=== PATIENT | male | born 1960 | race African-American/Black ===

== ENCOUNTER → 2019-08-08 | Outpatient (CLI) | payer OTHER ==
--- NOTE | 2019-08-08 16:57 | XR ---
EXAMINATION TYPE: XR lumbosacral spine min 4V DATE OF EXAM: 08/08/2019 CLINICAL HISTORY: Chronic low back pain TECHNIQUE: Frontal, lateral, and oblique images of the lumbar spine are obtained. COMPARISON: None FINDINGS: There are 5 lumbar type vertebral bodies identified. The lumbar spine shows satisfactory alignment without evidence of acute fracture or dislocation. Minimal intervertebral disc space narrow ing at L5-S1. Vertebral body heights and remaining disk space heights are within normal limits. Mild facet arthropathy at L4-S1. The oblique images appear within normal limits. The overlying soft tiss ue appears unremarkable. IMPRESSION: No acute fracture or dislocation is seen in the lumbar spine. Mild multilevel degenerati ve disc disease of the lumbar spine.
== END | disposition home or self-care (01) ==
LOC: RADXRMAIN 16:04
PROVIDERS: ATTEND Family Medicine
DX: M51.36 Other intervertebral disc degeneration, lumbar region (principal)
CPT/HCPCS: 72110

== ENCOUNTER → 2019-12-20 | Outpatient (CLI) | payer OTHER ==
--- NOTE | 2019-12-20 13:49 | MR ---
EXAMINATION TYPE: MR brain wo/w con DATE OF EXAM: 12/20/2019 COMPARISON: NONE HISTORY: Transient vision loss, both eyes TECHNIQUE: Multiplanar, multisequence images of the brain and brainstem is performed without and with IV contras t, utilizing 7 mL intravenous Gadavist . FINDINGS: Diffusion weighted images demonstrate no evidence of a recent infarct or other diffusion ab normality. There is no extra-axial fluid collection. There are 4 foci of punctate T2/FLAIR hyperinte nsity in the left frontal lobe and 2 in the right frontal lobe in the subcortical white matter. The v entricular system and cisternal spaces are normal in size and appearance. The brain volume is age ap propriate. Midline structures demonstrate normal morphology. The craniocervical junction appears within normal limits. Post contrast images demonstrate no abnormal intra-axial enhancement. However, there is slig ht dural thickening particularly in the left frontal lobe on postcontrast axial T1 image 19. The dura l venous sinuses appear patent. The visualized sinuses demonstrate severe mucosal thickening of the l eft sphenoid sinus and mild of the right maxillary sinus with scant mucosal thickening in the ethmoid , right inferior frontal, and left maxillary sinus. Mastoid air cells are well aerated. IMPRESSION: 1. Mild circumferential dural thickening, particularly of the left frontal region. This is a nonspeci fic finding and differential diagnosis includes infectious etiologies, neurosarcoidosis, or metastasi s. No other MR evidence of intracranial hypotension or cerebral venous thrombosis. 2. Few foci of nonspecific white matter change in the bilateral frontal subcortical white matter. Giv en the distribution sequela of migraines or chronic microangiopathy are favored. 3. Overall moderate pansinusitis. 4. No acute infarct, midline shift or mass effect. 5. Orbits appear unremarkable on MRI. Ophthalmologic exam recommended.
--- NOTE | 2019-12-20 15:21 | US ---
EXAMINATION TYPE: US carotid duplex BILAT DATE OF EXAM: 12/20/2019 COMPARISON: NONE CLINICAL HISTORY: 59-year-old male H53.433 sector defects. Bilateral vision loss x 6 months, worse la st 2 months. TECHNIQUE: Carotid duplex ultrasound examination. Indirect Doppler criteria was utilized. 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 Wall thickening in left bulb. Als o, minimal plaque seen in posterior wall at distal CCA is adjacent to the bulb. IMPRESSION: No hemodynamically significant stenosis identified in either internal carotid artery. Criteria for Assigning % of Stenosis / Diameter reduction (Estimation based on the indirect measurements of the internal carotid artery velocities (ICA PSV). 1. Normal (no stenosis)=ICA PSV < 125 cm/s: ratio < 2.0: ICA EDV<40 cm/s. 2. Less than 50% stenosis=ICA PSV < 125 cm/s: ratio < 2.0: ICA EDV<40 cm/s. 3. 50 to 69% stenosis=ICA PSV of 125 to 230 cm/s: ration 2.0 ? 4.0: ICA EDV 40-100 cm/s. 4. Greater than 70% stenosis to near occlusion= ICA PSV > 230 cm/s: ratio > 4.0: ICA EDV > 100 cm/s. 5. Near occlusion= ICA PSV velocities may be low or undetectable: variable ratio and ICA EDV. 6. Total occlusion=unable to detect flow.
== END | disposition home or self-care (01) ==
LOC: RADMRIMAIN 12:26
PROVIDERS: ATTEND Ophthalmology
DX: G93.89 Other specified disorders of brain (principal); R90.82 White matter disease, unspecified; G43.909 Migraine, unspecified, not intractable, without status migrainosus; H53.123 Transient visual loss, bilateral
CPT/HCPCS: 93880; 70553; A9585

== ENCOUNTER → 2021-07-07 | Outpatient (CLI) | payer OTHER ==
--- NOTE | 2021-07-07 09:54 | XR ---
EXAMINATION TYPE: XR chest 2V DATE OF EXAM: 07/07/2021 COMPARISON: NONE HISTORY: Shortness of breath, abnormal weight loss TECHNIQUE: Frontal and lateral views of the chest are obtained. FINDINGS: There is no focal air space opacity, pleural effusion, or pneumothorax seen. The cardiac silhouette size is small. Apical scarring is noted on the right, there may be some small blebs. Hype rinflation is consistent with underlying COPD. The osseous structures are intact. IMPRESSION: No acute cardiopulmonary process. Correlate for possible underlying emphysema.
--- NOTE | 2021-07-07 10:59 | XR ---
Left shoulder HISTORY: Trauma 2 weeks prior, pain 3 views the left shoulder Distal left clavicular fracture is present, there is periosteal new bone formation. Slight superior d isplacement of distal clavicle is present in relation to the acromion. There are scattered lucencies present throughout the proximal diaphyseal left humerus. IMPRESSION: Distal clavicular fracture, probable acromioclavicular separation grade 2. Lytic lucencie s within the proximal left humerus, consider multiple myeloma, metastasis. Report relayed telephonica lly to Dr. Nagel at the time of interpretation.
== END | disposition home or self-care (01) ==
LOC: RADXRMAIN 09:18
PROVIDERS: ATTEND Nurse Practitioner Family
DX: S42.031D Displaced fracture of lateral end of right clavicle, subsequent encounter for fracture with routine healing (principal); R91.8 Other nonspecific abnormal finding of lung field
CPT/HCPCS: 71046

== ENCOUNTER → 2021-08-08 | Outpatient (CLI) | payer OTHER ==
--- NOTE | 2021-08-12 06:46 | PE ---
EXAMINATION TYPE: PET CT fusion whole body DATE OF EXAM: 08/08/2021 COMPARISON: NONE HISTORY: Multiple myeloma . Abnormal weight loss. TECHNIQUE: Following the intravenous administration of 9.48 mCi of F-18 FDG, whole body images are p erformed from the top of skull to the bottom of feet. Images are reviewed on the computer in the cor onal, axial, and sagittal planes. Reconstructed rotating images are created on independent workstati on and reviewed on the computer. A localization and attenuation correction CT is performed in conju nction with the PET scan. SCAN: Subsequent Scan FINDINGS: SKULL BASE AND NECK: Suspicious near 1.0 cm hypermetabolic focus left anterior mandibular level axia l image 69, max SUV is 4.45. No additional areas of abnormal hypermetabolic uptake. CHEST, MEDIASTINUM, AND HILAR REGION: No areas of abnormal hypermetabolic uptake. ABDOMEN AND PELVIS: Normal excretion. No areas of abnormal hypermetabolic uptake. OSSEOUS STRUCTURES: Mild uptake corresponds to distal left clavicular fracture suspected subacute in age. No additional areas of abnormal hypermetabolic uptake. No distinct suspicious hypermetabolic lyt ic osseous lesions. Lower extremities: No distinct hypermetabolic lytic osseous lesions or additional areas of suspicious hypermetabolic uptake. OTHER CT: Small foci of groundglass opacity in the right midlung near axial image 118 are noted. Patient has little intra-abdominal fat. Occasional scattered pelvic phleboliths. Facet arthropathy lo wer lumbar spine. Mild calcified plaque of the abdominal aorta extends into pelvic branch vessels. IMPRESSION: 1. No suspicious lytic hypermetabolic osseous lesions to suggest active myeloma deposits or hypermeta bolic soft tissue masses to suggest plasmacytoma except for single near 1.0 cm lesion left anterior m andibular level. Correlate clinically. 2. Small area of groundglass opacity right midlung could reflect developing acute infectious process, correlate clinically.
== END | disposition home or self-care (01) ==
LOC: RADPETMAIN 11:23
PROVIDERS: ATTEND Nurse Practitioner Family
DX: C90.00 Multiple myeloma not having achieved remission (principal); R91.8 Other nonspecific abnormal finding of lung field
CPT/HCPCS: 78816; A9552

== ENCOUNTER → 2021-11-20 | Outpatient (CLI) | payer OTHER ==
--- NOTE | 2021-11-20 12:18 | CT ---
EXAMINATION TYPE: CT chest w con DATE OF EXAM: 11/20/2021 COMPARISON: PET scan dated 08/08/2021 HISTORY: lung nodule CT DLP: 124.9 mGycm Automated exposure control for dose reduction was used. TECHNIQUE: CT scan of the chest is performed with IV Contrast, patient injected with 100 mL of Isovue 300. FINDINGS: The previously seen area of groundglass opacity at the anterior aspect of the right upper lobe is sma ller measuring 5 mm compared to 8mm previously. The adjacent more medial nodular infiltrates are stil l persistent as well as similar opacity at the posterior aspect of the right upper lobe inferiorly. T hey could represent decreasing inflammatory/infectious nodules however they are not completely resolv ed. COPD changes with scattered bilateral thin pulmonary atelectasis. Minimal fibrotic changes are seen in the lung apex with paraseptal emphysema in the right lung apex. The subtle fibrotic changes at the medial aspect of the left lung apex is stable. No progressive lung lesion. Patent central airways. No pleural or pericardial effusion. No cardiomegaly. Scattered arter ial atherosclerotic calcifications. The pulmonary trunk measures 2.6 cm. No progressive lymphadenopat hy. Suspected hepatic steatosis. No aggressive bone lesion. IMPRESSION: Slightly smaller previously described groundglass opacities in the right upper lobe as described abov e, yet not completely resolved. They are likely benign however considering no previous CT scan is poli ilable before the PET scan, another precautionary follow-up in 3-6 months is advised. Other incidenta l findings as described above.
== END | disposition home or self-care (01) ==
LOC: RADCTMAIN 08:34
PROVIDERS: ATTEND Internal Medicine Hematology & Oncology
DX: R91.8 Other nonspecific abnormal finding of lung field (principal)
CPT/HCPCS: 71260; Q9967

== ENCOUNTER → 2022-05-22 | Outpatient (CLI) | payer MEDICARE, OTHER ==
--- NOTE | 2022-05-22 08:31 | CT ---
EXAMINATION TYPE: CT chest wo con CT DLP: 188.6 mGycm, Automated exposure control for dose reduction was used. DATE OF EXAM: 05/22/2022 7:13 AM COMPARISON: CT chest 11/20/2021,PET CT 08/08/2021. CLINICAL INDICATION:Male, 61 years old with history of R91.1 Nodule, Weight loss and shortness of sandip ath TECHNIQUE: Multiple axial images were obtained through the chest. Sagittal and coronal reformats were created for review. Contrast used: , none Oral contrast used: none. FINDINGS: LUNGS/ PLEURA: No evidence of focal consolidation, pneumothorax or pleural effusion. Fat-containing p osterior Bochdalek hernias bilaterally. Moderate bulla noted in the right lung apex. No evidence for pulmonary mass. Stable scarring like changes in the lung apices bilaterally left greater than right. AIRWAY: Patent and unremarkable. HEART: Size within normal limits. MEDIASTINUM: No gross evidence of adenopathy. VASCULATURE: No aortic aneurysm. Atherosclerosis of the arterial vasculature. MUSCULOSKELETAL: No acute osseous abnormalities, mild multilevel disc degeneration changes noted SOFT TISSUES/LYMPH NODES: Unremarkable. LOWER NECK: No significant findings. UPPER ABDOMEN: No significant findings. IMPRESSION: 1. No evidence for mass or acute process. 2. Mild apical cyst emphysema/COPD changes
== END | disposition home or self-care (01) ==
LOC: RADCTMAIN 06:54
PROVIDERS: ATTEND Internal Medicine Hematology & Oncology
DX: J44.9 Chronic obstructive pulmonary disease, unspecified (principal); J98.4 Other disorders of lung
CPT/HCPCS: 71250

== ENCOUNTER 2022-06-24 16:00 | Inpatient (IN) | payer MEDICARE, OTHER ==
[2022-06-24] MEDS ORDERED: ASPIRIN 81 MG PO STA (16:27)
[2022-06-24] MEDS ORDERED: IPRATROPIUM-ALBUTEROL 3 ML NEB INHALATION STA (16:27)
[2022-06-24] MEDS ORDERED: methylPREDNISolone SOD SUCCI 125 MG/2 ML VIAL IV STA (16:27)
[2022-06-24] MEDS ORDERED: SODIUM CHLORIDE 0.9% 1,000 ML IV STA ×2 (16:27→18:38)
--- NOTE | 2022-06-24 17:06 | XR ---
EXAMINATION TYPE: XR chest 2V DATE OF EXAM: 06/24/2022 COMPARISON: 07/07/2021 HISTORY: Chest pain TECHNIQUE: 2 view FINDINGS: There is blunting left costophrenic angle. There is infiltrate left lung base. Right lung i s clear. No heart failure. Heart and mediastinum are normal. There are no hilar masses. Bony thorax i s intact IMPRESSION: There is left lower lobe pneumonia and left pleural effusion which is new compared to old exam.
--- NOTE | 2022-06-24 18:04 | ED ---
General Adult HPI - General Chief complaint: Weakness Stated complaint: SOB Time Seen by Provider: 06/24/22 16:11 Source: patient, EMS, RN notes reviewed, old records reviewed Mode of arrival: EMS Limitations: no limitations - History of Present Illness Initial comments: Patient is a 61-year-old male with past medical history remarkable for COPD, neuropathy, brain lesions currently being worked up, legally blind who presents emergency Department complaining of weakness, dyspnea. This is been ongoing for 1 week. Patient's had Covid last week. States he has been feeling weak with a productive cough and having increased shortness of breath. Hasn't been eating or drinking. Is uncertain if he is positive for Covid. States he has left lower anterior rib pain after he hurt himself by falling recently. However denies any other [place] chest pain. Denies abdominal pain, nausea, vomiting. Denies any lower extremity edema. Denies any history of blood clots. Is not on blood thinners. Denies fevers. Does not acute complaints at this time. Denies sore throat. Presents for further evaluation. Believes he was vaccinated for Covid.Patient's brain lesions are chronic and have been getting worked up for the last 2 years. This includes cancer screening which patient's family states has been negative. - Related Data Home Medications Medication Instructions Recorded Confirmed Albuterol Sulfate [Albuterol 2 puff PO RT-Q6H PRN 06/24/22 06/24/22 Sulfate Hfa] oxyCODONE-APAP 10-325MG [Percocet 1 tab PO TID PRN 06/24/22 06/24/22 10-325 mg] Allergies Allergy/AdvReac Type Severity Reaction Status Date / Time No Known Allergies Allergy Verified 06/24/22 18:09 Review of Systems ROS Statement: Those systems with pertinent positive or pertinent negative responses have been documented in the HPI. Review of Systems: CONST: Denies fever EYES: Denies blurry vision ENT: Endorses nasal congestion C/V: Denies Chest pain RESP: Endorses cough GI: Denies abdominal pain : Denies dysuria SKIN: Denies rash. MSK: Denies joint pain. NEURO: Denies headache ROS Other: All systems not noted in ROS Statement are negative. Past Medical History Past Medical History: COPD Additional Past Medical History / Comment(s): neuropathy, brain lesions, legally blind, carpal tunnel History of Any Multi-Drug Resistant Organisms: None Reported Past Surgical History: No Surgical Hx Reported Past Psychological History: No Psychological Hx Reported Smoking Status: Current every day smoker Past Alcohol Use History: Daily Past Drug Use History: None Reported General Exam - General Exam Comments Initial Comments: General: He is cachectic. Appears malnourished. HEAD: Normal with no signs of head trauma. EYES: PERRLA, EOMI, conjunctiva normal, no discharge. ENT: Hearing grossly intact, normal oropharynx. Dry mucous membranes. Appears dehydrated. RESPIRATORY: Mild left lower lobe rhonchi. No increased work of breathing. Bilateral wheezing. C/V: Tachycardic with a regular rhythm. S1 and S2 auscultated. Peripheral pulses 2+ and intact throughout. ABD: Abd is soft, nontender, nondistended EXT: Normal range of motion, no obvious deformity SKIN: No rashes or lesions observed on exposed skin. NEURO: Alert and oriented 4. No focal acute deficits. Limitations: no limitations Course Vital Signs 06/24/22 06/24/22 06/24/22 16:12 18:32 18:41 Temperature Pulse Rate 129 H 119 H 122 H Respiratory 20 Rate Blood Pressure 98/78 O2 Sat by Pulse 98 Oximetry 06/24/22 06/24/22 06/24/22 19:32 19:55 20:51 Temperature Pulse Rate 114 H 84 81 Respiratory 18 Rate Blood Pressure 83/53 96/53 O2 Sat by Pulse 100 Oximetry 06/24/22 06/24/22 21:05 23:27 Temperature 36.4 F L 36.9 F L Pulse Rate 71 Respiratory 18 Rate Blood Pressure 71/53 O2 Sat by Pulse 100 Oximetry Procedures - Central Line Placement Left Femoral Consent Obtained: verbal consent Patient Placed on Monitor/Pulse Ox: Yes MD Prep: mask, gown, gloves Central Line Prep: Chlorhexidine scrub Local Anesthesia Used: Lidocaine 1% Amount of Anesthesia Used (mls): 5 Ultrasound Used for Placement: Yes Central Line Lumen Inserted: triple Bloods Obtained for Lab: No Central Line Position: good blood return, all ports aspirated, flushed, capped, sutured in place with nylon Patient Tolerated Procedure: well Complications: none Medical Decision Making - Medical Decision Making Based on the patient's presentation and physical exam, I'm concerned for pneumo ruth and the patient. Also appears dehydrated and malnourished. Patient's cachectic, with what I suspect are low baseline blood pressures. He'll be started on IV fluid hydration. We will obtain a broad workup including infectious labs and cardiopulmonary labs. Patient was in agreement with this plan.1 L of fluids already hanging from EMS. Will give additional 1L fluid bolus and start on 130cc/hr maintenance. to meet 30cc/kg. EKG shows no signs of acute ischemia. Chest x-ray was obtained and revealed a left lower lobe pneumonia as well as pleural effusion. This coupled with the low blood pressures, as as well as mild tachycardia as the patient meet sepsis criteria. Sepsis criteria was met at 1805. Blood cultures were obtained and sent. IV fluids already started, received 1 L from EMS, 1 L started here and 130cc/hr maintenance for 30cc/kg. Broad spectrum antibiotics were started, vancomycin and cefepime. Labs are still pending at this time. We'll continue to monitor. Patient's laboratory studies are remarkable for leukocytosis of 11.1. Patient has a normocytic anemia with a hemoglobin of 10.4. Patient's lactic acid is elevated to 5.0 which is likely multifactorial, consisting of his sepsis as well as severe dehydration the patient self admits to not eating or drinking for the last 1-2 weeks. We'll continue to monitor. Patient is hyponatremic to 130. Troponin is undetectable. Covid is positive. Flu is negative. On reevaluation, patient's blood pressures are improved with systolics in the 90s. MAP is remaining above 65. Tachycardia has resolved as well. I discussed results with the patient as well as his family members. I would like to admit him to the hospital on IV antibiotics. He was in agreement this plan. Patient be admitted to stepdown. I spoke with the admitting team, CHRISTOFER Campoverde of [facility] was in agreement with the plan. Patient will be admitted to stepdown in serious condition. For the patient's Covid, we will start the patient on daily Decadron. He has mild COPD at this time as well and therefore we'll continued breathing treatments as well. Multiple hours after the patient was admitted, repeat lactate at that time was 4.2 despite 30 mL per KG fluid hydration. I was notified by nursing that patient's pressures began to decline again with maps averaging less than 65. I discussed at length with the patient and believe that he would benefit from vasopressor demonstration for septic shock. He was in agreement this plan. He verbally consented to a central line. Left femoral central line was placed by myself. Levophed was started. I updated the admitting team, Nirali via perfect serve. I contacted the ICU attending, Dr. Otero who accepted the patient to the ICU. Patient was therefore admitted in serious condition. - Lab Data Result diagrams: 06/24/22 18:33 06/24/22 18:33 Lab Results 06/24/22 06/24/22 06/24/22 Range/Units 18:33 18:33 18:33 WBC 11.1 H (3.8-10.6) k/uL RBC 3.22 L (4.30-5.90) m/uL Hgb 10.4 L (13.0-17.5) gm/dL Hct 32.0 L (39.0-53.0) % MCV 99.2 (80.0-100.0) fL MCH 32.4 (25.0-35.0) pg MCHC 32.7 (31.0-37.0) g/dL RDW 14.6 (11.5-15.5) % Plt Count 142 L (150-450) k/uL MPV 10.0 Neutrophils % 84 % Lymphocytes % 9 % Monocytes % 5 % Eosinophils % 0 % Basophils % 0 % Neutrophils # 9.3 H (1.3-7.7) k/uL Lymphocytes # 1.0 (1.0-4.8) k/uL Monocytes # 0.6 (0-1.0) k/uL Eosinophils # 0.0 (0-0.7) k/uL Basophils # 0.0 (0-0.2) k/uL Hypochromasia Slight PT 13.6 H (9.0-12.0) sec INR 1.3 H (<1.2) APTT 29.6 (22.0-30.0) sec Sodium 130 L (137-145) mmol/L Potassium 4.1 (3.5-5.1) mmol/L Chloride 103 (98-107) mmol/L Carbon Dioxide 16 L (22-30) mmol/L Anion Gap 11 mmol/L BUN 21 H (9-20) mg/dL Creatinine 0.84 (0.66-1.25) mg/dL Est GFR (CKD-EPI)AfAm >90 (>60 ml/min/1.73 sqM) Est GFR (CKD-EPI)NonAf >90 (>60 ml/min/1.73 sqM) Glucose 85 (74-99) mg/dL Lactic Ac Sepsis Rflx Plasma Lactic Acid Kumar (0.7-2.0) mmol/L Calcium 7.6 L (8.4-10.2) mg/dL Magnesium 1.9 (1.6-2.3) mg/dL Total Bilirubin 0.8 (0.2-1.3) mg/dL AST 25 (17-59) U/L ALT 16 (4-49) U/L Alkaline Phosphatase 63 (38-126) U/L Troponin I (0.000-0.034) ng/mL NT-Pro-B Natriuret Pep pg/mL Total Protein 5.2 L (6.3-8.2) g/dL Albumin 2.1 L (3.5-5.0) g/dL Coronavirus (PCR) (Not Detectd) Influenza Type A RNA (Not Detectd) Influenza Type B (PCR) (Not Detectd) 06/24/22 06/24/22 06/24/22 Range/Units 18:33 18:33 18:33 WBC (3.8-10.6) k/uL RBC (4.30-5.90) m/uL Hgb (13.0-17.5) gm/dL Hct (39.0-53.0) % MCV (80.0-100.0) fL MCH (25.0-35.0) pg MCHC (31.0-37.0) g/dL RDW (11.5-15.5) % Plt Count (150-450) k/uL MPV Neutrophils % % Lymphocytes % % Monocytes % % Eosinophils % % Basophils % % Neutrophils # (1.3-7.7) k/uL Lymphocytes # (1.0-4.8) k/uL Monocytes # (0-1.0) k/uL Eosinophils # (0-0.7) k/uL Basophils # (0-0.2) k/uL Hypochromasia PT (9.0-12.0) sec INR (<1.2) APTT (22.0-30.0) sec Sodium (137-145) mmol/L Potassium (3.5-5.1) mmol/L Chloride (98-107) mmol/L Carbon Dioxide (22-30) mmol/L Anion Gap mmol/L BUN (9-20) mg/dL Creatinine (0.66-1.25) mg/dL Est GFR (CKD-EPI)AfAm (>60 ml/min/1.73 sqM) Est GFR (CKD-EPI)NonAf (>60 ml/min/1.73 sqM) Glucose (74-99) mg/dL Lactic Ac Sepsis Rflx Plasma Lactic Acid Kumar 5.0 H* (0.7-2.0) mmol/L Calcium (8.4-10.2) mg/dL Magnesium (1.6-2.3) mg/dL Total Bilirubin (0.2-1.3) mg/dL AST (17-59) U/L ALT (4-49) U/L Alkaline Phosphatase (38-126) U/L Troponin I <0.012 (0.000-0.034) ng/mL NT-Pro-B Natriuret Pep 5020 pg/mL Total Protein (6.3-8.2) g/dL Albumin (3.5-5.0) g/dL Coronavirus (PCR) (Not Detectd) Influenza Type A RNA (Not Detectd) Influenza Type B (PCR) (Not Detectd) 06/24/22 06/24/22 06/24/22 Range/Units 18:45 18:45 19:25 WBC (3.8-10.6) k/uL RBC (4.30-5.90) m/uL Hgb (13.0-17.5) gm/dL Hct (39.0-53.0) % MCV (80.0-100.0) fL MCH (25.0-35.0) pg MCHC (31.0-37.0) g/dL RDW (11.5-15.5) % Plt Count (150-450) k/uL MPV Neutrophils % % Lymphocytes % % Monocytes % % Eosinophils % % Basophils % % Neutrophils # (1.3-7.7) k/uL Lymphocytes # (1.0-4.8) k/uL Monocytes # (0-1.0) k/uL Eosinophils # (0-0.7) k/uL Basophils # (0-0.2) k/uL Hypochromasia PT (9.0-12.0) sec INR (<1.2) APTT (22.0-30.0) sec Sodium (137-145) mmol/L Potassium (3.5-5.1) mmol/L Chloride (98-107) mmol/L Carbon Dioxide (22-30) mmol/L Anion Gap mmol/L BUN (9-20) mg/dL Creatinine (0.66-1.25) mg/dL Est GFR (CKD-EPI)AfAm (>60 ml/min/1.73 sqM) Est GFR (CKD-EPI)NonAf (>60 ml/min/1.73 sqM) Glucose (74-99) mg/dL Lactic Ac Sepsis Rflx Y Plasma Lactic Acid Kumar (0.7-2.0) mmol/L Calcium (8.4-10.2) mg/dL Magnesium (1.6-2.3) mg/dL Total Bilirubin (0.2-1.3) mg/dL AST (17-59) U/L ALT (4-49) U/L Alkaline Phosphatase (38-126) U/L Troponin I (0.000-0.034) ng/mL NT-Pro-B Natriuret Pep pg/mL Total Protein (6.3-8.2) g/dL Albumin (3.5-5.0) g/dL Coronavirus (PCR) Detected A (Not Detectd) Influenza Type A RNA Not Detected (Not Detectd) Influenza Type B (PCR) Not Detected (Not Detectd) - EKG Data -: EKG Interpreted by Me EKG Comments: 12-lead Electrocardiogram Interpretation Note EKG was reviewed and interpreted by myself. 12-lead ECG performed at 1837 is interpreted by me as revealing sinus tachycardia with PVCs at a rate of 129 beats per minute. Piru is normal. OR Intervals 137 ms, QRS duration is 71 ms, QTc is 410 ms.. There were no ST or T wave abnormalities to suggest myocardial ischemia or injury. R wave progression across the precordium was satisfactory. B y my interpretation this EKG is non-diagnostic for acute ischemia. Critical Care Time Critical Care Time: Yes Total Critical Care Time: 35 Critical Care Time: Upon my evaluation, this patient had a high probability of imminent or life- threatening deterioration due to septic shock, sepsis, pneumonia, COVID-19, dehydration, which required my direct attention, intervention, and personal management. I have personally provided 35 minutes of critical care time exclusive of time spent on separately billable procedures. Time includes review of laboratory data, radiology results, discussion with consultants, and monitoring for potential decompensation. Interventions were performed as documented in my note. Disposition Clinical Impression: Sepsis, Pneumonia, Dehydration, COVID-19 virus infection, COPD (chronic obstructive pulmonary disease), Cachexia, Septic shock Disposition: ADMITTED IP TO THIS [facility] Condition: Serious Time of Disposition: 20:20
[2022-06-24] MEDS ORDERED: VANCOMYCIN IV PER PHARMACY 1 EACH MISC MISCELLANE PRN (18:06)
[2022-06-24] MEDS ORDERED: CEFEPIME 2 GM in SODIUM CHLORIDE 0.9% 100 ML IVPB STA (18:09)
[2022-06-24] MEDS ORDERED: VANCOMYCIN 750 MG in SODIUM CHLORIDE 0.9% 250 ML IVPB ONE (18:30)
[2022-06-24 18:50] LABS: Basophils % (A) 0 %; Eosinophils % (A) 0 %; HGB 10.4 gm/dL (13.0-17.5); Hypochromasia Slight; Lymphocytes % (A) 9 %; MCH 32.4 pg (25.0-35.0); MCHC 32.7 g/dL (31.0-37.0); MCV 99.2 fL (80.0-100.0); Monocytes # (A) 0.6 k/uL (0-1.0); Monocytes % (A) 5 %; Neutrophils # (A) 9.3 k/uL (1.3-7.7); Neutrophils % (A) 84 %; Platelet Count 142 k/uL (150-450); RBC 3.22 m/uL (4.30-5.90); RDW 14.6 % (11.5-15.5); WBC 11.1 k/uL (3.8-10.6)
[2022-06-24 19:01] LABS: INR 1.3 (<1.2); Partial Thromboplastin Time 29.6 sec (22.0-30.0); Prothrombin Time 13.6 sec (9.0-12.0)
[2022-06-24 19:15] LABS: ALT 16 U/L (4-49); AST 25 U/L (17-59); African American GFR (CKD) >90 (>60 ml/min/1.73 sqM); Albumin 2.1 g/dL (3.5-5.0); Alkaline Phosphatase 63 U/L (38-126); Anion Gap 11 mmol/L; Blood Urea Nitrogen 21 mg/dL (9-20); Calcium 7.6 mg/dL (8.4-10.2); Carbon Dioxide 16 mmol/L (22-30); Chloride 103 mmol/L (98-107); Glucose 85 mg/dL (74-99); Magnesium 1.9 mg/dL (1.6-2.3); Non-African American GFR(CKD) >90 (>60 ml/min/1.73 sqM); Potassium 4.1 mmol/L (3.5-5.1); Sodium 130 mmol/L (137-145); Total Bilirubin 0.8 mg/dL (0.2-1.3); Total Protein 5.2 g/dL (6.3-8.2)
[2022-06-24] MEDS ORDERED: IPRATROPIUM-ALBUTEROL 3 ML NEB INHALATION SCH (20:00)
[2022-06-24] MEDS ORDERED: ONDANSETRON 4 MG/2 ML VIAL IVP PRN (20:31)
[2022-06-24] MEDS ORDERED: ACETAMINOPHEN TAB 325 MG TAB PO PRN (20:31)
[2022-06-24] MEDS ORDERED: NALOXONE 0.4 MG/ML 1 ML VIAL IV PRN (20:31)
[2022-06-24] MEDS ORDERED: NOREPINEPHRINE 8 MG in SODIUM CHLORIDE 0.9% 250 ML IV ONE (23:34)
[2022-06-24] MEDS: ALBUTEROL HFA INHALER INHALATION SCH (23:37)
[2022-06-25] MEDS: CEFEPIME 2 GM in SODIUM CHLORIDE 0.9% 100 ML IVPB SCH ×4 (00:15→23:13)
[2022-06-25] MEDS ORDERED: NALOXONE 0.4 MG/ML 1 ML VIAL IV PRN (00:22)
--- NOTE | 2022-06-25 00:27 | ED ---
Medical Decision Making - Lab Data Result diagrams: 06/24/22 18:33 06/24/22 18:33 Lab Results 06/24/22 06/24/22 06/24/22 Range/Units 18:33 18:33 18:33 WBC 11.1 H (3.8-10.6) k/uL RBC 3.22 L (4.30-5.90) m/uL Hgb 10.4 L (13.0-17.5) gm/dL Hct 32.0 L (39.0-53.0) % MCV 99.2 (80.0-100.0) fL MCH 32.4 (25.0-35.0) pg MCHC 32.7 (31.0-37.0) g/dL RDW 14.6 (11.5-15.5) % Plt Count 142 L (150-450) k/uL MPV 10.0 Neutrophils % 84 % Lymphocytes % 9 % Monocytes % 5 % Eosinophils % 0 % Basophils % 0 % Neutrophils # 9.3 H (1.3-7.7) k/uL Lymphocytes # 1.0 (1.0-4.8) k/uL Monocytes # 0.6 (0-1.0) k/uL Eosinophils # 0.0 (0-0.7) k/uL Basophils # 0.0 (0-0.2) k/uL Hypochromasia Slight PT 13.6 H (9.0-12.0) sec INR 1.3 H (<1.2) APTT 29.6 (22.0-30.0) sec Sodium 130 L (137-145) mmol/L Potassium 4.1 (3.5-5.1) mmol/L Chloride 103 (98-107) mmol/L Carbon Dioxide 16 L (22-30) mmol/L Anion Gap 11 mmol/L BUN 21 H (9-20) mg/dL Creatinine 0.84 (0.66-1.25) mg/dL Est GFR (CKD-EPI)AfAm >90 (>60 ml/min/1.73 sqM) Est GFR (CKD-EPI)NonAf >90 (>60 ml/min/1.73 sqM) Glucose 85 (74-99) mg/dL Lactic Ac Sepsis Rflx Plasma Lactic Acid Kumar (0.7-2.0) mmol/L Calcium 7.6 L (8.4-10.2) mg/dL Magnesium 1.9 (1.6-2.3) mg/dL Total Bilirubin 0.8 (0.2-1.3) mg/dL AST 25 (17-59) U/L ALT 16 (4-49) U/L Alkaline Phosphatase 63 (38-126) U/L Troponin I (0.000-0.034) ng/mL NT-Pro-B Natriuret Pep pg/mL Total Protein 5.2 L (6.3-8.2) g/dL Albumin 2.1 L (3.5-5.0) g/dL Coronavirus (PCR) (Not Detectd) Influenza Type A RNA (Not Detectd) Influenza Type B (PCR) (Not Detectd) 06/24/22 06/24/22 06/24/22 Range/Units 18:33 18:33 18:33 WBC (3.8-10.6) k/uL RBC (4.30-5.90) m/uL Hgb (13.0-17.5) gm/dL Hct (39.0-53.0) % MCV (80.0-100.0) fL MCH (25.0-35.0) pg MCHC (31.0-37.0) g/dL RDW (11.5-15.5) % Plt Count (150-450) k/uL MPV Neutrophils % % Lymphocytes % % Monocytes % % Eosinophils % % Basophils % % Neutrophils # (1.3-7.7) k/uL Lymphocytes # (1.0-4.8) k/uL Monocytes # (0-1.0) k/uL Eosinophils # (0-0.7) k/uL Basophils # (0-0.2) k/uL Hypochromasia PT (9.0-12.0) sec INR (<1.2) APTT (22.0-30.0) sec Sodium (137-145) mmol/L Potassium (3.5-5.1) mmol/L Chloride (98-107) mmol/L Carbon Dioxide (22-30) mmol/L Anion Gap mmol/L BUN (9-20) mg/dL Creatinine (0.66-1.25) mg/dL Est GFR (CKD-EPI)AfAm (>60 ml/min/1.73 sqM) Est GFR (CKD-EPI)NonAf (>60 ml/min/1.73 sqM) Glucose (74-99) mg/dL Lactic Ac Sepsis Rflx Plasma Lactic Acid Kumar 5.0 H* (0.7-2.0) mmol/L Calcium (8.4-10.2) mg/dL Magnesium (1.6-2.3) mg/dL Total Bilirubin (0.2-1.3) mg/dL AST (17-59) U/L ALT (4-49) U/L Alkaline Phosphatase (38-126) U/L Troponin I <0.012 (0.000-0.034) ng/mL NT-Pro-B Natriuret Pep 5020 pg/mL Total Protein (6.3-8.2) g/dL Albumin (3.5-5.0) g/dL Coronavirus (PCR) (Not Detectd) Influenza Type A RNA (Not Detectd) Influenza Type B (PCR) (Not Detectd) 06/24/22 06/24/22 06/24/22 Range/Units 18:45 18:45 19:25 WBC (3.8-10.6) k/uL RBC (4.30-5.90) m/uL Hgb (13.0-17.5) gm/dL Hct (39.0-53.0) % MCV (80.0-100.0) fL MCH (25.0-35.0) pg MCHC (31.0-37.0) g/dL RDW (11.5-15.5) % Plt Count (150-450) k/uL MPV Neutrophils % % Lymphocytes % % Monocytes % % Eosinophils % % Basophils % % Neutrophils # (1.3-7.7) k/uL Lymphocytes # (1.0-4.8) k/uL Monocytes # (0-1.0) k/uL Eosinophils # (0-0.7) k/uL Basophils # (0-0.2) k/uL Hypochromasia PT (9.0-12.0) sec INR (<1.2) APTT (22.0-30.0) sec Sodium (137-145) mmol/L Potassium (3.5-5.1) mmol/L Chloride (98-107) mmol/L Carbon Dioxide (22-30) mmol/L Anion Gap mmol/L BUN (9-20) mg/dL Creatinine (0.66-1.25) mg/dL Est GFR (CKD-EPI)AfAm (>60 ml/min/1.73 sqM) Est GFR (CKD-EPI)NonAf (>60 ml/min/1.73 sqM) Glucose (74-99) mg/dL Lactic Ac Sepsis Rflx Y Plasma Lactic Acid Kumar (0.7-2.0) mmol/L Calcium (8.4-10.2) mg/dL Magnesium (1.6-2.3) mg/dL Total Bilirubin (0.2-1.3) mg/dL AST (17-59) U/L ALT (4-49) U/L Alkaline Phosphatase (38-126) U/L Troponin I (0.000-0.034) ng/mL NT-Pro-B Natriuret Pep pg/mL Total Protein (6.3-8.2) g/dL Albumin (3.5-5.0) g/dL Coronavirus (PCR) Detected A (Not Detectd) Influenza Type A RNA Not Detected (Not Detectd) Influenza Type B (PCR) Not Detected (Not Detectd) Disposition Clinical Impression: Sepsis, Pneumonia, Dehydration, COVID-19 virus infection, COPD (chronic obstructive pulmonary disease), Cachexia, Septic shock Disposition: ADMITTED IP TO THIS HOSP Condition: Serious Procedures - Sepsis Sepsis Focused Exam #1 Time Sepsis Criteria Met: 18:05 Sepsis Focused Exam Date: 06/24/22 Sepsis Focused Exam Time: 23:00 Sepsis Focused Exam Complete: Yes Vital Signs & RN Notes Reviewed: Yes Capillary Refill: < 2 Seconds: Fingers, Toes Peripheral Pulses: Weak: Radial (R), Radial (L) Skin Color: Normal for Patient Respiratory Exam: normal lung sounds Cardiovascular Exam: normal rhythm
[2022-06-25 01:04] LABS: Glucose,Whole Blood 98 mg/dL (70-110)
[2022-06-25] MEDS: ALBUTEROL HFA INHALER INHALATION SCH ×5 (03:06→20:30)
[2022-06-25 05:50] LABS: Basophils % (A) 0 %; Eosinophils % (A) 0 %; HCT 27.6 % (39.0-53.0); Hypochromasia Slight; Lymphocytes % (A) 10 %; MCH 31.8 pg (25.0-35.0); MCHC 31.5 g/dL (31.0-37.0); Macrocytosis Slight; Mean Platelet Volume 10.2; Monocytes # (A) 0.3 k/uL (0-1.0); Monocytes % (A) 3 %; Neutrophils # (A) 8.6 k/uL (1.3-7.7); Neutrophils % (A) 85 %; Platelet Count 133 k/uL (150-450); RBC 2.74 m/uL (4.30-5.90); RDW 14.9 % (11.5-15.5)
[2022-06-25 05:55] LABS: HGB 8.7 gm/dL (13.0-17.5)
[2022-06-25 06:11] LABS: African American GFR (CKD) >90 (>60 ml/min/1.73 sqM); Anion Gap 8 mmol/L; Blood Urea Nitrogen 24 mg/dL (9-20); Calcium 6.9 mg/dL (8.4-10.2); Carbon Dioxide 15 mmol/L (22-30); Chloride 109 mmol/L (98-107); Glucose 94 mg/dL (74-99); Non-African American GFR(CKD) >90 (>60 ml/min/1.73 sqM); Potassium 4.2 mmol/L (3.5-5.1); Sodium 132 mmol/L (137-145)
[2022-06-25 06:29] LABS: Appearance,Urine Cloudy (Clear); Bilirubin,Urine 1+ (Negative); Blood,Urine Negative (Negative); Cellular Casts,Urine 7 /lpf (0); Color,Urine Dark Brown; Glucose,Urine (UA) Negative (Negative); Hyaline Casts,Urine 211 /lpf (0-2); Ketones,Urine Trace (Negative); Leukocyte Esterase,Urine Negative (Negative); Mucus,Urine Many /hpf; Nitrite,Urine Negative (Negative); PH, Urine 5.5 (5.0-8.0); Protein,Urine 1+ (Negative); RBC,Urine 1 /hpf (0-5); Specific Gravity,Urine 1.024 (1.001-1.035); WBC,Urine 6 /hpf (0-5)
--- NOTE | 2022-06-25 07:16 | XR ---
EXAMINATION TYPE: XR chest 1V portable DATE OF EXAM: 06/25/2022 COMPARISON: 06/24/2022 INDICATION: Pneumonia TECHNIQUE: Chest exam in the semiupright position with mobile apparatus. FINDINGS: The heart size is normal. The pulmonary vasculature is normal. There is small left pleural effusion. Left lower lobe infiltrate is present.. IMPRESSION: 1. Small left pleural effusion with left lower lobe infiltrate. Correlate for pneumonia. Continued fo llow-up is recommended.
[2022-06-25] MEDS: TIOTROPIUM 2.5 MCG INHALER INHALATION SCH ×2 (07:55→11:06)
[2022-06-25] MEDS: VANCOMYCIN 750 MG in SODIUM CHLORIDE 0.9% 250 ML IVPB SCH ×2 (08:53→20:07)
--- NOTE | 2022-06-25 08:53 | US ---
EXAMINATION TYPE: US chest DATE OF EXAM: 06/25/2022 COMPARISON: XR CLINICAL HISTORY: Markings for thoracentesis by pulmonary staff. TECHNIQUE: Targeted ultrasound of the posterior lower bilateral hemithoraces EXAM MEASUREMENTS: Right Pleural Effusion pocket size: No fluid seen. Left Pleural Effusion pocket size: 6.9 cm. Fluid appears to be complex/loculated, not marked at this time. Left skin surface to fluid distance: 2.9 cm Limited exam done portable in ICU, patient requesting exam to be over. Right side NOT marked for possible thoracentesis outside the dept. Left side NOT marked for possible thoracentesis outside the dept. Pulmonologists are able to review the images in the patient?s EMR. IMPRESSIONS: 1. Complex loculated fluid collections left posterior lung. 2. Exam is limited
[2022-06-25] MEDS: DEXAMETHASONE SOD PHOSPHATE 10 MG/ML 1 ML VIAL IVP SCH (08:54)
[2022-06-25] MEDS: ASCORBIC ACID 500 MG TAB PO SCH (08:54)
[2022-06-25] MEDS: HEPARIN SODIUM,PORCINE/PF 5,000 UNIT/0.5 ML SYRINGE SQ SCH ×2 (08:54→20:07)
[2022-06-25] MEDS: ZINC SULFATE 220 MG CAP PO SCH (08:54)
[2022-06-25] MEDS: CHOLECALCIFEROL 25 MCG (1000 IU) TABLET PO SCH (08:54)
[2022-06-25] MEDS: FAMOTIDINE 20 MG TAB PO SCH ×2 (08:54→20:07)
[2022-06-25] MEDS ORDERED: SODIUM CHLORIDE 0.9% 1,000 ML IV ONE ×2 (10:20→18:38)
[2022-06-25 11:00] LABS: Total Protein 4.6 g/dL (6.3-8.2)
[2022-06-25] MEDS: SODIUM CHLORIDE 0.9% 1,000 ML IV SCH ×3 (11:27→23:13)
--- NOTE | 2022-06-25 12:16 | P.CNPUL ---
History of Present Illness Consult date: 06/25/22 Requesting physician: Gray Henao Reason for consult: pneumonia Chief complaint: Shortness of breath and weakness History of present illness: This is a 61-year-old -[place] male with history of COPD, neuropathy, legally blind, patient came in with just over a week history of productive cough, shortness of breath, and weakness. Apparently his tested positive for COVID-19 infection, and the patient has been feeling run down for the last 1 week at least. Patient was seen in the ER, and he was noted to have positive corneal COVID-19 infection patient was also noted to have an extensive infiltrate in the left lower lobe, and a parapneumonic pleural effusion. Ultrasound of the fluid showed loculation, patient was noted to be hypotensive in the ER, he required placement on norepinephrine. He was given fluid boluses, started on vancomycin and cefepime. Admitted to the ICU, and I was asked to see him on consultation. After evaluating the patient and reviewing the ultrasound of the chest, I recommended interventional radiology evaluation for possible pigtail catheter placement in his left sided loculated pleural effusion. Patient may have a picture of empyema in addition to his pneumonia, patient may have underlying COVID-19 infection. In the meantime the patient is on room air, but he is requiring a small dose of norepinephrine. Received multiple fluid boluses while in the ER. Patient will be seen by interventional radiology, infectious disease, and he will be seen by thoracic surgery on consultation. Review of Systems CONST: Denies fever , feels generally weak. EYES: Denies blurry vision ENT: Negative C/V: Denies Chest pain RESP: As noted in HPI GI: Negative : Denies dysuria SKIN: History of vitiligo affecting his back and his anterior chest MSK: Denies joint pain. NEURO: Negative Past Medical History Past Medical History: COPD Additional Past Medical History / Comment(s): neuropathy, brain lesions, legally blind, carpal tunnel History of Any Multi-Drug Resistant Organisms: None Reported Past Surgical History: No Surgical Hx Reported Past Psychological History: No Psychological Hx Reported Smoking Status: Current every day smoker Past Alcohol Use History: Daily Additional Past Alcohol Use History / Comment(s): Reports he drinks one beer per day. Past Drug Use History: None Reported - Past Family History Mother Family Medical History: Diabetes Mellitus Additional Family Medical History / Comment(s): His mother is in her 90s. Father Additional Family Medical History / Comment(s): Past way from tuberculosis Medications and Allergies Home Medications Medication Instructions Recorded Confirmed Type Albuterol Sulfate [Albuterol 2 puff PO RT-Q6H PRN 06/24/22 06/24/22 History Sulfate Hfa] oxyCODONE-APAP 10-325MG [Percocet 1 tab PO TID PRN 06/24/22 06/24/22 History 10-325 mg] Allergies Allergy/AdvReac Type Severity Reaction Status Date / Time No Known Allergies Allergy Verified 06/24/22 18:09 Physical Exam Vitals: Vital Signs Temp Pulse Pulse Resp BP BP Pulse Ox 06/25/22 09:15 85 20 86/65 98 06/25/22 09:00 96 20 84/61 06/25/22 08:45 84 20 92/69 98 06/25/22 08:30 98 20 86/59 98 06/25/22 08:15 105 H 19 89/64 97 06/25/22 08:00 97.5 F L 98 22 80/60 97 06/25/22 07:45 101 H 39 H 86/66 06/25/22 07:30 110 H 38 H 86/66 99 06/25/22 07:15 99 37 H 88/66 98 06/25/22 07:00 98 17 87/60 99 06/25/22 06:45 105 H 20 81/62 98 06/25/22 06:30 98 18 86/62 98 06/25/22 06:15 96 20 89/64 98 06/25/22 06:00 97.5 F L 73 20 85/59 99 06/25/22 05:45 106 H 19 92/57 96 06/25/22 05:30 106 H 18 87/59 98 06/25/22 05:15 109 H 13 82/56 99 06/25/22 05:00 113 H 16 89/58 98 06/25/22 04:45 101 H 19 86/60 98 06/25/22 04:30 105 H 20 99/65 98 06/25/22 04:15 95 12 90/65 98 06/25/22 04:00 97.7 F 103 H 110 H 20 88/60 98 06/25/22 03:45 104 H 20 86/59 96 06/25/22 03:30 115 H 31 H 88/61 96 06/25/22 03:15 105 H 35 H 89/56 96 06/25/22 03:07 97 06/25/22 03:00 99 16 81/60 96 06/25/22 02:45 96 20 80/57 94 L 06/25/22 02:30 103 H 16 80/62 98 06/25/22 02:15 102 H 18 82/60 98 06/25/22 02:00 106 H 28 H 80/58 98 06/25/22 01:45 79 57 H 83/54 98 06/25/22 01:30 75 16 77/59 98 06/25/22 01:15 66 25 H 93/63 100 06/25/22 01:00 75 31 H 76/62 98 06/25/22 00:59 77 30 H 100 06/25/22 00:12 68 18 88/54 100 06/25/22 00:04 63 81/54 06/24/22 23:56 65 18 76/59 100 06/24/22 23:27 98 F 71 18 71/53 100 06/24/22 23:06 97.7 F 60 18 83/54 97 06/24/22 21:05 36.4 F L 06/24/22 20:51 81 18 96/53 100 06/24/22 19:55 84 06/24/22 19:32 114 H 83/53 06/24/22 18:41 122 H 06/24/22 18:32 119 H 06/24/22 16:12 129 H 20 98/78 98 FiO2 06/25/22 09:15 06/25/22 09:00 06/25/22 08:45 06/25/22 08:30 06/25/22 08:15 06/25/22 08:00 06/25/22 07:45 06/25/22 07:30 06/25/22 07:15 06/25/22 07:00 06/25/22 06:45 06/25/22 06:30 06/25/22 06:15 06/25/22 06:00 06/25/22 05:45 06/25/22 05:30 06/25/22 05:15 06/25/22 05:00 06/25/22 04:45 06/25/22 04:30 06/25/22 04:15 06/25/22 04:00 06/25/22 03:45 06/25/22 03:30 06/25/22 03:15 06/25/22 03:07 21 06/25/22 03:00 06/25/22 02:45 06/25/22 02:30 06/25/22 02:15 06/25/22 02:00 06/25/22 01:45 06/25/22 01:30 06/25/22 01:15 06/25/22 01:00 06/25/22 00:59 06/25/22 00:12 06/25/22 00:04 06/24/22 23:56 06/24/22 23:27 06/24/22 23:06 06/24/22 21:05 06/24/22 20:51 06/24/22 19:55 06/24/22 19:32 06/24/22 18:41 06/24/22 18:32 06/24/22 16:12 Intake and Output 06/24/22 06/25/22 06/25/22 22:59 06:59 14:59 Intake Total 525.076 130 Output Total 200 0 Balance 325.076 130 Intake: Intake, IV Titration 525.076 130 Amount Cefepime 2 gm In Sodium 100 Chloride 0.9% 100 ml @ 200 mls/hr IVPB ONCE STA Rx#:[id number] Norepinephrine 8 mg In 35.076 Sodium Chloride 0.9% 250 ml @ 0.03 MCG/KG/MIN 2. 554 mls/hr IV .Q24H ONE Rx#:[id number] Sodium Chloride 0.9% 1, 390 130 000 ml @ 130 mls/hr IV . Q7H42M STA Rx#:[id number] Output: Urine 200 0 Other: Voiding Method Urinal Weight 43.998 kg 52.6 kg General: 61-year-old male Cachectic looking frail and chronically ill HEAD: Atraumatic, normocephalic.. EYES: PERRLA, EOMI, conjunctiva normal, no discharge. ENT: Moist mucous membranes, throat is clear. RESPIRATORY: Crackles at the left base, no rhonchi no wheezes. C/V: Distant S1 and S2, no S3 gallop. ABD: Soft nontender no megaly no rebound no guarding EXT: No clubbing edema or cyanosis SKIN: Evidence of significant vitiligo involving the back and the chest. NEURO: Alert and oriented 3Focal deficits., Patient is legally blind. Psychiatric: Normal mood affect and normal mental status examination. Results - Laboratory Findings CBC and BMP: 06/25/22 05:30 06/25/22 05:30 PT/INR, D-dimer PT 13.6 sec (9.0-12.0) H 06/24/22 18:33 INR 1.3 (<1.2) H 06/24/22 18:33 Abnormal lab findings: Abnormal Labs 06/24/22 06/24/22 06/24/22 18:33 18:33 18:33 WBC 11.1 H RBC 3.22 L Hgb 10.4 L Hct 32.0 L MCV Plt Count 142 L Neutrophils # 9.3 H PT 13.6 H INR 1.3 H Sodium 130 L Chloride Carbon Dioxide 16 L BUN 21 H Plasma Lactic Acid Kumar Calcium 7.6 L Lactate Dehydrogenase Total Protein 5.2 L Albumin 2.1 L Urine Protein Urine Ketones Urine Bilirubin Urine WBC Hyaline Casts Urine Mucus Coronavirus (PCR) 06/24/22 06/24/22 06/24/22 18:33 18:45 21:37 WBC RBC Hgb Hct MCV Plt Count Neutrophils # PT INR Sodium Chloride Carbon Dioxide BUN Plasma Lactic Acid Kumar 5.0 H* 4.2 H* Calcium Lactate Dehydrogenase Total Protein Albumin Urine Protein Urine Ketones Urine Bilirubin Urine WBC Hyaline Casts Urine Mucus Coronavirus (PCR) Detected A 06/25/22 06/25/22 06/25/22 05:30 05:30 05:30 WBC RBC 2.74 L Hgb 8.7 L D Hct 27.6 L MCV 101.0 H Plt Count 133 L Neutrophils # 8.6 H PT INR Sodium 132 L Chloride 109 H Carbon Dioxide 15 L BUN 24 H Plasma Lactic Acid Kumar Calcium 6.9 L Lactate Dehydrogenase 644 H Total Protein 4.6 L Albumin Urine Protein Urine Ketones Urine Bilirubin Urine WBC Hyaline Casts Urine Mucus Coronavirus (PCR) 06/25/22 05:55 WBC RBC Hgb Hct MCV Plt Count Neutrophils # PT INR Sodium Chloride Carbon Dioxide BUN Plasma Lactic Acid Kumar Calcium Lactate Dehydrogenase Total Protein Albumin Urine Protein 1+ H Urine Ketones Trace H Urine Bilirubin 1+ H Urine WBC 6 H Hyaline Casts 211 H Urine Mucus Many H Coronavirus (PCR) - Diagnostic Findings Chest x-ray: image reviewed (As noted in HPI) Assessment and Plan Assessment: Impression: Sepsis and septic shock Left lower lobe pneumonia with complicated parapneumonic effusion, possible empyema COVID-19 infection History of underlying COPD Hypotension secondary to sepsis and septic shock Recommendation: Continue to monitor in the ICU Continue antibiotics empirically including cefepime and vancomycin Continue bronchodilators Ultrasound of the chest was reviewed, patient may need a pigtail catheter placement the fluid seems to be loculated. GI and DVT prophylaxis Infectious disease and thoracic surgery to see on consultation We will continue to follow Titrate norepinephrine accordingly. Prognosis is guarded and the patient is considered critically ill. Time with Patient: Greater than 30
--- NOTE | 2022-06-25 16:18 | P.GSCN ---
History of Present Illness Consult date: 06/25/22 Reason for Consult: Loculated left lung pleural effusion Requesting physician: Darrian Otero History of present illness: This is a 61-year-old gentleman who follows on an outpatient basis for his primary care service with Dr. Marilyn Nagel. His past medical history significant for COPD, neuropathy, is legally blind, a 90 pound weight loss over one year and chronic ongoing tobacco dependence and daily EtOH use of drinking 1 beer per day. He presented to the emergency department here at [facility] yesterday via EMS due to some complaints of shortness of breath, weakness, productive cough, nausea, vomiting and pain to his left lower anterior chest. He reports he fell at home on 06/23/2022 and was assisted up by his . He denies hitting his head or losing consciousness. He also denies any recent fever, chills, diarrhea, obstipation, hematemesis, hemoptysis, headache, body aches, lower extremity edema, palpitations, or syncope. The patient also reports that over one year. He has lost about 90 pounds due to lack of appetite and is unsure of the cause. The patient's tested positive for COVID-19 1 week ago, although feeling ill himself at home he was not tested. He reports he received the COVID-19 vaccine of [employer] receiving 2 shots, although has not received any additional boosters. Initial laboratory results show a WBC count of 11.1, hemoglobin 10.4, hematocrit 32.0, platelets 142, PT 13.6, INR 1.3, PTT 29.6, sodium 130, potassium 4.1, chloride 103, CO2 16, BUN 21, creatinine 0.84, plasma lactic acid venous 5.0, calcium 7.6, magnesium 1.9, AST 25, ALT 16, troponins less than 0.012, proBNP 5020 and albumin 2.1. In addition a Coronavirus PCR was completed which showed detected. A chest x-ray was completed in the emergency department which showed a left lower lobe pneumonia and left pleural effusion. A 12-lead EKG was completed which showed sinus tachycardia with frequent supraventricular premature complexes with a left axis deviation and a heart rate of 129 BPM. For further evaluation of the left sided pleural effusion and ultrasound of his chest was completed which showed a 6.9 cm fluid collection to his left side which appeared to be complex and loculated. Due to the findings of a loculated left pleural effusion a consult was placed to Dr. Emmett Gagnon from cardiothoracic surgery for further evaluation and treatment recommendations. Review of Systems A 14 point review of systems was completed was negative except as mentioned in the HPI. Past Medical History Past Medical History: COPD Additional Past Medical History / Comment(s): neuropathy, brain lesions, legally blind, carpal tunnel History of Any Multi-Drug Resistant Organisms: None Reported Past Surgical History: No Surgical Hx Reported Past Psychological History: No Psychological Hx Reported Smoking Status: Current every day smoker Past Alcohol Use History: Daily Additional Past Alcohol Use History / Comment(s): Reports he drinks one beer per day. Past Drug Use History: None Reported - Past Family History Mother Family Medical History: Diabetes Mellitus Additional Family Medical History / Comment(s): His mother is in her 90s. Father Additional Family Medical History / Comment(s): Past way from tuberculosis Medications and Allergies Home Medications Medication Instructions Recorded Confirmed Type Albuterol Sulfate [Albuterol 2 puff PO RT-Q6H PRN 06/24/22 06/24/22 History Sulfate Hfa] oxyCODONE-APAP 10-325MG [Percocet 1 tab PO TID PRN 06/24/22 06/24/22 History 10-325 mg] Allergies Allergy/AdvReac Type Severity Reaction Status Date / Time No Known Allergies Allergy Verified 06/24/22 18:09 Surgical - Exam Vital Signs Pulse Resp BP Pulse Ox 129 H 20 98/78 98 06/24/22 16:12 06/24/22 16:12 06/24/22 16:12 06/24/22 16:12 - General Lying in bed in the intensive care unit. Appears comfortable, and is in no acute apparent distress. no distress, no pain, cachectic - Eyes normal ocular movement, no pale, no icteric, no deviation - ENT normal pinna, normal nares, normal mucosa, no hearing loss, no congestion, poor fpc - Neck Neck is supple, no lymphadenopathy. no masses, no bruits, trachea midline, no venous distension - Respiratory Lungs sounds essentially clear to his bilateral upper lobes, diminished to his left lower lobe. No wheezes, rhonchi or crackles. Respirations are symmetrical and nonlabored. Oxygen saturation are 98% on room air. - Cardiovascular Regular rhythm and rate. S1 and S2 present, negative for S3, gallop or murmur. No peripheral edema present. - Abdomen Abdomen is soft, nontender and nondistended. Active bowel sounds present in all 4 abdominal quadrants. No guarding or rigidity. - Genitourinary Deferred - Rectum Deferred - Integumentary Skin is warm and dry. No clubbing or cyanosis is present. no rash, no growths, no abnormal pigmentation - Neurologic No focal deficits. normal coordination, normal sensation - Musculoskeletal Moves all 4 extremities with equal strength bilateral. - Psychiatric oriented to time, oriented to person, oriented to place, speech is normal, memory intact Results - Labs 06/25/22 05:30 06/25/22 05:30 Abnormal Lab Results - Last 24 Hours (Table) 06/24/22 06/24/22 06/24/22 Range/Units 18:33 18:33 18:33 WBC 11.1 H (3.8-10.6) k/uL RBC 3.22 L (4.30-5.90) m/uL Hgb 10.4 L (13.0-17.5) gm/dL Hct 32.0 L (39.0-53.0) % MCV (80.0-100.0) fL Plt Count 142 L (150-450) k/uL Neutrophils # 9.3 H (1.3-7.7) k/uL PT 13.6 H (9.0-12.0) sec INR 1.3 H (<1.2) Sodium 130 L (137-145) mmol/L Chloride (98-107) mmol/L Carbon Dioxide 16 L (22-30) mmol/L BUN 21 H (9-20) mg/dL Plasma Lactic Acid Kumar (0.7-2.0) mmol/L Calcium 7.6 L (8.4-10.2) mg/dL Total Protein 5.2 L (6.3-8.2) g/dL Albumin 2.1 L (3.5-5.0) g/dL Urine Protein (Negative) Urine Ketones (Negative) Urine Bilirubin (Negative) Urine WBC (0-5) /hpf Hyaline Casts (0-2) /lpf Urine Mucus (None) /hpf Coronavirus (PCR) (Not Detectd) 06/24/22 06/24/22 06/24/22 Range/Units 18:33 18:45 21:37 WBC (3.8-10.6) k/uL RBC (4.30-5.90) m/uL Hgb (13.0-17.5) gm/dL Hct (39.0-53.0) % MCV (80.0-100.0) fL Plt Count (150-450) k/uL Neutrophils # (1.3-7.7) k/uL PT (9.0-12.0) sec INR (<1.2) Sodium (137-145) mmol/L Chloride (98-107) mmol/L Carbon Dioxide (22-30) mmol/L BUN (9-20) mg/dL Plasma Lactic Acid Kumar 5.0 H* 4.2 H* (0.7-2.0) mmol/L Calcium (8.4-10.2) mg/dL Total Protein (6.3-8.2) g/dL Albumin (3.5-5.0) g/dL Urine Protein (Negative) Urine Ketones (Negative) Urine Bilirubin (Negative) Urine WBC (0-5) /hpf Hyaline Casts (0-2) /lpf Urine Mucus (None) /hpf Coronavirus (PCR) Detected A (Not Detectd) 06/25/22 06/25/22 06/25/22 Range/Units 05:30 05:30 05:55 WBC (3.8-10.6) k/uL RBC 2.74 L (4.30-5.90) m/uL Hgb 8.7 L D (13.0-17.5) gm/dL Hct 27.6 L (39.0-53.0) % MCV 101.0 H (80.0-100.0) fL Plt Count 133 L (150-450) k/uL Neutrophils # 8.6 H (1.3-7.7) k/uL PT (9.0-12.0) sec INR (<1.2) Sodium 132 L (137-145) mmol/L Chloride 109 H (98-107) mmol/L Carbon Dioxide 15 L (22-30) mmol/L BUN 24 H (9-20) mg/dL Plasma Lactic Acid Kumar (0.7-2.0) mmol/L Calcium 6.9 L (8.4-10.2) mg/dL Total Protein (6.3-8.2) g/dL Albumin (3.5-5.0) g/dL Urine Protein 1+ H (Negative) Urine Ketones Trace H (Negative) Urine Bilirubin 1+ H (Negative) Urine WBC 6 H (0-5) /hpf Hyaline Casts 211 H (0-2) /lpf Urine Mucus Many H (None) /hpf Coronavirus (PCR) (Not Detectd) Diabetes panel 06/24/22 06/25/22 Range/Units 18:33 05:30 Sodium 130 L 132 L (137-145) mmol/L Potassium 4.1 4.2 (3.5-5.1) mmol/L Chloride 103 109 H (98-107) mmol/L Carbon Dioxide 16 L 15 L (22-30) mmol/L BUN 21 H 24 H (9-20) mg/dL Creatinine 0.84 0.88 (0.66-1.25) mg/dL Glucose 85 94 (74-99) mg/dL Calcium 7.6 L 6.9 L (8.4-10.2) mg/dL AST 25 (17-59) U/L ALT 16 (4-49) U/L Alkaline Phosphatase 63 (38-126) U/L Total Protein 5.2 L (6.3-8.2) g/dL Albumin 2.1 L (3.5-5.0) g/dL Calcium panel 06/24/22 06/25/22 Range/Units 18:33 05:30 Calcium 7.6 L 6.9 L (8.4-10.2) mg/dL Albumin 2.1 L (3.5-5.0) g/dL Pituitary panel 06/24/22 06/25/22 Range/Units 18:33 05:30 Sodium 130 L 132 L (137-145) mmol/L Potassium 4.1 4.2 (3.5-5.1) mmol/L Chloride 103 109 H (98-107) mmol/L Carbon Dioxide 16 L 15 L (22-30) mmol/L BUN 21 H 24 H (9-20) mg/dL Creatinine 0.84 0.88 (0.66-1.25) mg/dL Glucose 85 94 (74-99) mg/dL Calcium 7.6 L 6.9 L (8.4-10.2) mg/dL Adrenal panel 06/24/22 06/25/22 Range/Units 18:33 05:30 Sodium 130 L 132 L (137-145) mmol/L Potassium 4.1 4.2 (3.5-5.1) mmol/L Chloride 103 109 H (98-107) mmol/L Carbon Dioxide 16 L 15 L (22-30) mmol/L BUN 21 H 24 H (9-20) mg/dL Creatinine 0.84 0.88 (0.66-1.25) mg/dL Glucose 85 94 (74-99) mg/dL Calcium 7.6 L 6.9 L (8.4-10.2) mg/dL Total Bilirubin 0.8 (0.2-1.3) mg/dL AST 25 (17-59) U/L ALT 16 (4-49) U/L Alkaline Phosphatase 63 (38-126) U/L Total Protein 5.2 L (6.3-8.2) g/dL Albumin 2.1 L (3.5-5.0) g/dL - Imaging Chest x-ray: report reviewed, image reviewed EKG: image reviewed Assessment and Plan Assessment: 1. Loculated left pleural effusion 2. Status post fall from standing 3. COVID-19 virus infection 4. Shortness of breath, likely secondary to above 5. Chronic obstructive pulmonary disease 6. Malnutrition, cachectic 90 pound weight loss over one year period 7. Chronic ongoing tobacco dependence 8. Daily EtOH use, drinks 1 beer daily 9. Legally blind Plan: The patient was seen and examined at his bedside in the intensive care unit. His chart and diagnostics were reviewed. His case was discussed in detail with Dr. Emmett Gagnon from cardiothoracic surgery. Interventional radiology has been consulted for a left-sided pigtail catheter placement. An incentive spirometry has been ordered and will encourage use 10 times every hour while awake. The importance of smoking cessation was discussed in detail with the patient. Antibiotic management per primary care service. Medical management and other comorbidities per primary care service. Continue to monitor daily chest x-rays. Once the left-sided chest pigtail catheter has been placed, we will initiate alteplase/dornase pleural instillation. More recommendations to follow based on patient's clinical course. Thank you Dr. Otero for this consult and we look forward to working with you in the care of this patient. I have personally seen and examined the patient, performed the documentation and the assessment and plan as written. 30 minutes spent on the visit . Rafita ABREU
--- NOTE | 2022-06-25 19:34 | CT ---
EXAMINATION TYPE: CT chest wo con DATE OF EXAM: 06/25/2022 COMPARISON: 05/22/2022 HISTORY: Loculated left pleural effusion CT DLP: 251.7 mGycm. Automated Exposure Control for Dose Reduction was Utilized. TECHNIQUE: Supine CT scan of the thorax is performed without IV contrast. FINDINGS: AIRWAYS: Large airways are unremarkable. There is diffuse left lower lobe airway caliber narrowing. LUNGS: Dense consolidation is seen nearly throughout the left lower lobe consistent with a clinical d iagnosis of diffuse left lower lobe bronchopneumonia, new since the prior study. The posteromedial right lower lobe shows ill-defined opacity consistent with a clinical diagnosis of partial right lower lobe pneumonia, also new since the prior study. PLEURAL SPACES: New since the prior study is a moderate-sized left pleural effusion, surrounding the left lower lobe and extending cephalad - positioned lateral to the left mid and upper lung zones wher e it appears loculated, in that it is not gravity dependent. MEDIASTINUM: Cardiac and pericardial evaluation unremarkable. No adenopathy. OTHER: New since the prior study is a small volume of upper abdominal peritoneal fluid, nonspecific. IMPRESSION: New abnormalities have developed since the prior CT 05/22/2022.
[2022-06-25] MEDS: SYMBICORT 160-4.5 MCG INHALER INHALATION SCH (20:30)
[2022-06-25] MEDS ORDERED: FUROSEMIDE 10 MG/ML 4 ML VIAL IV ONE (23:30)
--- NOTE | 2022-06-25 23:58 | P.HPIM ---
History of Present Illness H&P Date: 06/25/22 Chief Complaint: weakness Patient is a 61-year-old male with a known history of COPD, peripheral neuropathy nondiabetic, legally blind and history of carpal tunnel syndrome and currently everyday smoker presents to ER with complaints of cough generalized weakness and shortness of breath for the past 1 week.. Afebrile on admission. No complaints of chest pain. No nausea vomiting abdominal pain or diarrhea. Chest x-ray showed there is a left lower lobe pneumonia and left pleural effusion which is new compared to old exam. Repeat chest x-ray this morning showed small left pleural effusion with left lower lobe infiltrate. Correlate for pneumonia. EKG showed sinus tachycardia with frequent supraventricular complexes. Chest ultrasound showed complex loculated fluid collections left posterior lung. Patient was also hypotensive and requiring pressor support. Laboratory test showed WBC 11.1 hemoglobin 10.4 and platelets 142 INR 1.3 Sodium 130 potassium 4.1 chloride 103 bicarb is 16 BUN 21 and creatinine 0.84 Lactic acidosis with level 5.0 and calcium 7.6 and proBNP 5020 Coronavirus PCR detected. Review of Systems Constitutional: Patient denies any fever or chills. Patient is weakness and. Abdomen: Patient denied any nausea or vomiting or abd. pain Cardiovascular: Patient denies any chest pain or short of breath no palpitation s. Respiratory: Does have cough without sputum production. Positive shortness of breath Neurologic: Patient denied any numbness or tingling headache. Musculoskeletal: Patient denies any complaints of joint swelling or deformity. Skin: Negative Psychiatric: Negative Endocrine: No heat or cold intolerance. No recent weight gain. Genitourinary: No dysuria or hematuria. All other 14 point ROS negative except the above Past Medical History Past Medical History: COPD Additional Past Medical History / Comment(s): neuropathy, brain lesions, legally blind, carpal tunnel History of Any Multi-Drug Resistant Organisms: None Reported Past Surgical History: No Surgical Hx Reported Past Psychological History: No Psychological Hx Reported Smoking Status: Current every day smoker Past Alcohol Use History: Daily Past Drug Use History: None Reported - Past Family History Mother Family Medical History: Diabetes Mellitus Additional Family Medical History / Comment(s): His mother is in her 90s. Father Additional Family Medical History / Comment(s): Past way from tuberculosis Medications and Allergies Home Medications Medication Instructions Recorded Confirmed Type Albuterol Sulfate [Albuterol 2 puff PO RT-Q6H PRN 06/24/22 06/24/22 History Sulfate Hfa] oxyCODONE-APAP 10-325MG [Percocet 1 tab PO TID PRN 06/24/22 06/24/22 History 10-325 mg] Allergies Allergy/AdvReac Type Severity Reaction Status Date / Time No Known Allergies Allergy Verified 06/24/22 18:09 Physical Exam Vitals: Vital Signs Temp Pulse Pulse Resp BP BP Pulse Ox 06/25/22 07:00 98 17 87/60 99 06/25/22 06:45 105 H 20 81/62 98 06/25/22 06:30 98 18 86/62 98 06/25/22 06:15 96 20 89/64 98 06/25/22 06:00 97.5 F L 73 20 85/59 99 06/25/22 05:45 106 H 19 92/57 96 06/25/22 05:30 106 H 18 87/59 98 06/25/22 05:15 109 H 13 82/56 99 06/25/22 05:00 113 H 16 89/58 98 06/25/22 04:45 101 H 19 86/60 98 06/25/22 04:30 105 H 20 99/65 98 06/25/22 04:15 95 12 90/65 98 06/25/22 04:00 97.7 F 103 H 110 H 20 88/60 98 06/25/22 03:45 104 H 20 86/59 96 06/25/22 03:30 115 H 31 H 88/61 96 06/25/22 03:15 105 H 35 H 89/56 96 06/25/22 03:07 97 06/25/22 03:00 99 16 81/60 96 06/25/22 02:45 96 20 80/57 94 L 06/25/22 02:30 103 H 16 80/62 98 06/25/22 02:15 102 H 18 82/60 98 06/25/22 02:00 106 H 28 H 80/58 98 06/25/22 01:45 79 57 H 83/54 98 06/25/22 01:30 75 16 77/59 98 06/25/22 01:15 66 25 H 93/63 100 06/25/22 01:00 75 31 H 76/62 98 06/25/22 00:59 77 30 H 100 06/25/22 00:12 68 18 88/54 100 06/25/22 00:04 63 81/54 06/24/22 23:56 65 18 76/59 100 06/24/22 23:27 98 F 71 18 71/53 100 06/24/22 23:06 97.7 F 60 18 83/54 97 06/24/22 21:05 36.4 F L 06/24/22 20:51 81 18 96/53 100 06/24/22 19:55 84 06/24/22 19:32 114 H 83/53 06/24/22 18:41 122 H 06/24/22 18:32 119 H 06/24/22 16:12 129 H 20 98/78 98 FiO2 06/25/22 07:00 06/25/22 06:45 06/25/22 06:30 06/25/22 06:15 06/25/22 06:00 06/25/22 05:45 06/25/22 05:30 06/25/22 05:15 06/25/22 05:00 06/25/22 04:45 06/25/22 04:30 06/25/22 04:15 06/25/22 04:00 06/25/22 03:45 06/25/22 03:30 06/25/22 03:15 06/25/22 03:07 21 06/25/22 03:00 06/25/22 02:45 06/25/22 02:30 06/25/22 02:15 06/25/22 02:00 06/25/22 01:45 06/25/22 01:30 06/25/22 01:15 06/25/22 01:00 06/25/22 00:59 06/25/22 00:12 06/25/22 00:04 06/24/22 23:56 06/24/22 23:27 06/24/22 23:06 06/24/22 21:05 06/24/22 20:51 06/24/22 19:55 06/24/22 19:32 06/24/22 18:41 06/24/22 18:32 06/24/22 16:12 Intake and Output 06/24/22 06/25/22 06/25/22 22:59 06:59 14:59 Intake Total 525.076 130 Output Total 200 0 Balance 325.076 130 Intake: Intake, IV Titration 525.076 130 Amount Cefepime 2 gm In Sodium 100 Chloride 0.9% 100 ml @ 200 mls/hr IVPB ONCE STA Rx#:[id number] Norepinephrine 8 mg In 35.076 Sodium Chloride 0.9% 250 ml @ 0.03 MCG/KG/MIN 2. 554 mls/hr IV .Q24H ONE Rx#:[id number] Sodium Chloride 0.9% 1, 390 130 000 ml @ 130 mls/hr IV . Q7H42M STA Rx#:[id number] Output: Urine 200 0 Other: Voiding Method Urinal Weight 43.998 kg 52.6 kg PHYSICAL EXAMINATION: Patient is lying in the bed. Awake alert. Seems chronically Daily. HEENT: Normocephalic. Neck is supple. Pupils reactive. Nostrils clear. Oral cavity is moist. Neck reveals no JVD, carotid bruits, or thyromegaly. CHEST EXAMINATION: Trachea is central. Symmetrical expansion. Basilar crackles. Nonlabored breathing. No wheezing.. CARDIAC: Normal S1, S2 with no gallops. No murmurs ABDOMEN: Soft. Bowel sounds present. Nontender. No organomegaly. No abdominal bruits. Extremities: reveal no edema. No clubbing or cyanosis Neurologically awake, alert, oriented x3 with well-coordinated movements. No focal deficits noted Skin: No rash or skin lesions. Psychiatric: Coperative. Nonsuicidal, Musculoskeletal: No joint swelling or deformity. Normal range of motion. Results CBC & Chem 7: 06/29/22 14:36 06/29/22 05:45 Labs: Abnormal Lab Results - Last 24 Hours (Table) 06/24/22 06/24/22 06/24/22 Range/Units 18:33 18:33 18:33 WBC 11.1 H (3.8-10.6) k/uL RBC 3.22 L (4.30-5.90) m/uL Hgb 10.4 L (13.0-17.5) gm/dL Hct 32.0 L (39.0-53.0) % MCV (80.0-100.0) fL Plt Count 142 L (150-450) k/uL Neutrophils # 9.3 H (1.3-7.7) k/uL PT 13.6 H (9.0-12.0) sec INR 1.3 H (<1.2) Sodium 130 L (137-145) mmol/L Chloride (98-107) mmol/L Carbon Dioxide 16 L (22-30) mmol/L BUN 21 H (9-20) mg/dL Plasma Lactic Acid Kumar (0.7-2.0) mmol/L Calcium 7.6 L (8.4-10.2) mg/dL Total Protein 5.2 L (6.3-8.2) g/dL Albumin 2.1 L (3.5-5.0) g/dL Urine Protein (Negative) Urine Ketones (Negative) Urine Bilirubin (Negative) Urine WBC (0-5) /hpf Hyaline Casts (0-2) /lpf Urine Mucus (None) /hpf Coronavirus (PCR) (Not Detectd) 06/24/22 06/24/22 06/24/22 Range/Units 18:33 18:45 21:37 WBC (3.8-10.6) k/uL RBC (4.30-5.90) m/uL Hgb (13.0-17.5) gm/dL Hct (39.0-53.0) % MCV (80.0-100.0) fL Plt Count (150-450) k/uL Neutrophils # (1.3-7.7) k/uL PT (9.0-12.0) sec INR (<1.2) Sodium (137-145) mmol/L Chloride (98-107) mmol/L Carbon Dioxide (22-30) mmol/L BUN (9-20) mg/dL Plasma Lactic Acid Kumar 5.0 H* 4.2 H* (0.7-2.0) mmol/L Calcium (8.4-10.2) mg/dL Total Protein (6.3-8.2) g/dL Albumin (3.5-5.0) g/dL Urine Protein (Negative) Urine Ketones (Negative) Urine Bilirubin (Negative) Urine WBC (0-5) /hpf Hyaline Casts (0-2) /lpf Urine Mucus (None) /hpf Coronavirus (PCR) Detected A (Not Detectd) 06/25/22 06/25/22 06/25/22 Range/Units 05:30 05:30 05:55 WBC (3.8-10.6) k/uL RBC 2.74 L (4.30-5.90) m/uL Hgb 8.7 L D (13.0-17.5) gm/dL Hct 27.6 L (39.0-53.0) % MCV 101.0 H (80.0-100.0) fL Plt Count 133 L (150-450) k/uL Neutrophils # 8.6 H (1.3-7.7) k/uL PT (9.0-12.0) sec INR (<1.2) Sodium 132 L (137-145) mmol/L Chloride 109 H (98-107) mmol/L Carbon Dioxide 15 L (22-30) mmol/L BUN 24 H (9-20) mg/dL Plasma Lactic Acid Kumar (0.7-2.0) mmol/L Calcium 6.9 L (8.4-10.2) mg/dL Total Protein (6.3-8.2) g/dL Albumin (3.5-5.0) g/dL Urine Protein 1+ H (Negative) Urine Ketones Trace H (Negative) Urine Bilirubin 1+ H (Negative) Urine WBC 6 H (0-5) /hpf Hyaline Casts 211 H (0-2) /lpf Urine Mucus Many H (None) /hpf Coronavirus (PCR) (Not Detectd) Thrombosis Risk Factor Assmnt - DVT/VTE Prophylaxis DVT/VTE Prophylaxis: Pharmacologic Prophylaxis ordered Assessment and Plan Assessment: Septic shock requiring pressor support with Levophed. Left lower lobe pneumonia with loculated pleural effusion possible parapneumonic COVID-19 infection with symptoms x1 week Hypovolemic hyponatremia Lactic acidosis COPD Legally blind Currently everyday smoker DVT prophylaxis with Lovenox subcu Patient will be continued on IV hydration and broad-spectrum antibiotics in the form of vancomycin and cefepime. CT surgery and interventional radiology was consulted due to loculated pleural effusion and possible pigtail catheter placement. Follow-up culture report. Continue with duo nebs and follow-up closely. Pulmonary is on board. Prognosis is guarded. Time with Patient: Greater than 30
--- NOTE | 2022-06-25 23:59 | P.CONS ---
History of Present Illness - Reason for Consult Consult date: 06/25/22 empyema Requesting physician: Darrian Otero - Chief Complaint left-sided chest pain x few days - History of Present Illness Patient is a 61-year-old -Monegasque male with a past medical history significant for COPD neuropathy and brain which is currently being worked up and apparently the patient did tested positive for COVID about a week ago presenting to the ER last evening for evaluation of left lower anterior rib pain apparently has been going on for the last few days and apparently the patient did have a history of fall hurting himself patient described the pain to be more of a sharp in nature almost 7-8 of 10 radiation also complaining of shortness of breath he did have a cough with occasional sputum production no hemoptysis patient denies any nausea vomiting no abdominal pain or diarrhea on presentation to the hospital the patient was afebrile patient is currently satting 99 200% on room air patient did have a white count of 11.1 with a left shift kidney function has been normal blood gases elevated elevated lactic acid level exams are normal urine has been negative patient positive COVID test influenza testing has been negative blood culture (currently pending patient did have a chest x- ray small left effusion and left lower lobe infiltrate correlate for pneumonia patient is currently being treated with cefepime and vancomycin infectious disease was consulted with concern for possible empyema CT of the chest has been ordered and is currently pending Review of Systems Positive point has been mentioned in the HPI rest of the systems are negative Past Medical History Past Medical History: COPD Additional Past Medical History / Comment(s): neuropathy, brain lesions, legally blind, carpal tunnel History of Any Multi-Drug Resistant Organisms: None Reported Past Surgical History: No Surgical Hx Reported Past Psychological History: No Psychological Hx Reported Smoking Status: Current every day smoker Past Alcohol Use History: Daily Past Drug Use History: None Reported - Past Family History Mother Family Medical History: Diabetes Mellitus Additional Family Medical History / Comment(s): His mother is in her 90s. Father Additional Family Medical History / Comment(s): Past way from tuberculosis Medications and Allergies Home Medications Medication Instructions Recorded Confirmed Type Albuterol Sulfate [Albuterol 2 puff PO RT-Q6H PRN 06/24/22 06/24/22 History Sulfate Hfa] oxyCODONE-APAP 10-325MG [Percocet 1 tab PO TID PRN 06/24/22 06/24/22 History 10-325 mg] Allergies Allergy/AdvReac Type Severity Reaction Status Date / Time No Known Allergies Allergy Verified 06/24/22 18:09 Physical Exam Vitals: Vital Signs Temp Pulse Pulse Resp BP BP Pulse Ox 06/25/22 09:15 85 20 86/65 98 06/25/22 09:00 96 20 84/61 06/25/22 08:45 84 20 92/69 98 06/25/22 08:30 98 20 86/59 98 06/25/22 08:15 105 H 19 89/64 97 06/25/22 08:00 97.5 F L 98 22 80/60 97 06/25/22 07:45 101 H 39 H 86/66 06/25/22 07:30 110 H 38 H 86/66 99 06/25/22 07:15 99 37 H 88/66 98 06/25/22 07:00 98 17 87/60 99 06/25/22 06:45 105 H 20 81/62 98 06/25/22 06:30 98 18 86/62 98 06/25/22 06:15 96 20 89/64 98 06/25/22 06:00 97.5 F L 73 20 85/59 99 06/25/22 05:45 106 H 19 92/57 96 06/25/22 05:30 106 H 18 87/59 98 06/25/22 05:15 109 H 13 82/56 99 06/25/22 05:00 113 H 16 89/58 98 06/25/22 04:45 101 H 19 86/60 98 06/25/22 04:30 105 H 20 99/65 98 06/25/22 04:15 95 12 90/65 98 06/25/22 04:00 97.7 F 103 H 110 H 20 88/60 98 06/25/22 03:45 104 H 20 86/59 96 06/25/22 03:30 115 H 31 H 88/61 96 06/25/22 03:15 105 H 35 H 89/56 96 06/25/22 03:07 97 06/25/22 03:00 99 16 81/60 96 06/25/22 02:45 96 20 80/57 94 L 06/25/22 02:30 103 H 16 80/62 98 06/25/22 02:15 102 H 18 82/60 98 06/25/22 02:00 106 H 28 H 80/58 98 06/25/22 01:45 79 57 H 83/54 98 06/25/22 01:30 75 16 77/59 98 06/25/22 01:15 66 25 H 93/63 100 06/25/22 01:00 75 31 H 76/62 98 06/25/22 00:59 77 30 H 100 06/25/22 00:12 68 18 88/54 100 06/25/22 00:04 63 81/54 06/24/22 23:56 65 18 76/59 100 06/24/22 23:27 98 F 71 18 71/53 100 06/24/22 23:06 97.7 F 60 18 83/54 97 06/24/22 21:05 36.4 F L 06/24/22 20:51 81 18 96/53 100 06/24/22 19:55 84 06/24/22 19:32 114 H 83/53 06/24/22 18:41 122 H 06/24/22 18:32 119 H 06/24/22 16:12 129 H 20 98/78 98 FiO2 06/25/22 09:15 06/25/22 09:00 06/25/22 08:45 06/25/22 08:30 06/25/22 08:15 06/25/22 08:00 06/25/22 07:45 06/25/22 07:30 06/25/22 07:15 06/25/22 07:00 06/25/22 06:45 06/25/22 06:30 06/25/22 06:15 06/25/22 06:00 06/25/22 05:45 06/25/22 05:30 06/25/22 05:15 06/25/22 05:00 06/25/22 04:45 06/25/22 04:30 06/25/22 04:15 06/25/22 04:00 06/25/22 03:45 06/25/22 03:30 06/25/22 03:15 06/25/22 03:07 21 06/25/22 03:00 06/25/22 02:45 06/25/22 02:30 06/25/22 02:15 06/25/22 02:00 06/25/22 01:45 06/25/22 01:30 06/25/22 01:15 06/25/22 01:00 06/25/22 00:59 06/25/22 00:12 06/25/22 00:04 06/24/22 23:56 06/24/22 23:27 06/24/22 23:06 06/24/22 21:05 06/24/22 20:51 06/24/22 19:55 06/24/22 19:32 06/24/22 18:41 06/24/22 18:32 06/24/22 16:12 Intake and Output 06/24/22 06/25/22 06/25/22 22:59 06:59 14:59 Intake Total 525.076 130 Output Total 200 0 Balance 325.076 130 Intake: Intake, IV Titration 525.076 130 Amount Cefepime 2 gm In Sodium 100 Chloride 0.9% 100 ml @ 200 mls/hr IVPB ONCE STA Rx#:[id number] Norepinephrine 8 mg In 35.076 Sodium Chloride 0.9% 250 ml @ 0.03 MCG/KG/MIN 2. 554 mls/hr IV .Q24H ONE Rx#:[id number] Sodium Chloride 0.9% 1, 390 130 000 ml @ 130 mls/hr IV . Q7H42M [facility] Rx#:[id number] Output: Urine 200 0 Other: Voiding Method Urinal Weight 43.998 kg 52.6 kg GENERAL DESCRIPTION: Middle-aged male lying in bed, no distress. No tachypnea or accessory muscle of respiration use. HEENT: Shows Pallor , no scleral icterus. Oral mucous membrane is dry. No pharyngeal erythema or thrush NECK: Trachea central, no thyromegaly. LUNGS: Unlabored breathing. decreased breath sound at the base. No wheeze or crackle. HEART: S1, S2, regular rate and rhythm. No loud murmur ABDOMEN: Soft, no tenderness , guarding or rigidity, no organomegaly EXTREMITIES: No edema of feet. SKIN: No rash, no masses palpable. NEUROLOGICAL: The patient is awake, alert, oriented x3, mood and affect normal. Results CBC & Chem 7: 06/26/22 12:50 06/26/22 04:30 Labs: Abnormal Lab Results - Last 24 Hours (Table) 06/24/22 06/24/22 06/24/22 Range/Units 18:33 18:33 18:33 WBC 11.1 H (3.8-10.6) k/uL RBC 3.22 L (4.30-5.90) m/uL Hgb 10.4 L (13.0-17.5) gm/dL Hct 32.0 L (39.0-53.0) % MCV (80.0-100.0) fL Plt Count 142 L (150-450) k/uL Neutrophils # 9.3 H (1.3-7.7) k/uL PT 13.6 H (9.0-12.0) sec INR 1.3 H (<1.2) Sodium 130 L (137-145) mmol/L Chloride (98-107) mmol/L Carbon Dioxide 16 L (22-30) mmol/L BUN 21 H (9-20) mg/dL Plasma Lactic Acid Kumar (0.7-2.0) mmol/L Calcium 7.6 L (8.4-10.2) mg/dL Total Protein 5.2 L (6.3-8.2) g/dL Albumin 2.1 L (3.5-5.0) g/dL Urine Protein (Negative) Urine Ketones (Negative) Urine Bilirubin (Negative) Urine WBC (0-5) /hpf Hyaline Casts (0-2) /lpf Urine Mucus (None) /hpf Coronavirus (PCR) (Not Detectd) 06/24/22 06/24/22 06/24/22 Range/Units 18:33 18:45 21:37 WBC (3.8-10.6) k/uL RBC (4.30-5.90) m/uL Hgb (13.0-17.5) gm/dL Hct (39.0-53.0) % MCV (80.0-100.0) fL Plt Count (150-450) k/uL Neutrophils # (1.3-7.7) k/uL PT (9.0-12.0) sec INR (<1.2) Sodium (137-145) mmol/L Chloride (98-107) mmol/L Carbon Dioxide (22-30) mmol/L BUN (9-20) mg/dL Plasma Lactic Acid Kumar 5.0 H* 4.2 H* (0.7-2.0) mmol/L Calcium (8.4-10.2) mg/dL Total Protein (6.3-8.2) g/dL Albumin (3.5-5.0) g/dL Urine Protein (Negative) Urine Ketones (Negative) Urine Bilirubin (Negative) Urine WBC (0-5) /hpf Hyaline Casts (0-2) /lpf Urine Mucus (None) /hpf Coronavirus (PCR) Detected A (Not Detectd) 06/25/22 06/25/22 06/25/22 Range/Units 05:30 05:30 05:55 WBC (3.8-10.6) k/uL RBC 2.74 L (4.30-5.90) m/uL Hgb 8.7 L D (13.0-17.5) gm/dL Hct 27.6 L (39.0-53.0) % MCV 101.0 H (80.0-100.0) fL Plt Count 133 L (150-450) k/uL Neutrophils # 8.6 H (1.3-7.7) k/uL PT (9.0-12.0) sec INR (<1.2) Sodium 132 L (137-145) mmol/L Chloride 109 H (98-107) mmol/L Carbon Dioxide 15 L (22-30) mmol/L BUN 24 H (9-20) mg/dL Plasma Lactic Acid Kumar (0.7-2.0) mmol/L Calcium 6.9 L (8.4-10.2) mg/dL Total Protein (6.3-8.2) g/dL Albumin (3.5-5.0) g/dL Urine Protein 1+ H (Negative) Urine Ketones Trace H (Negative) Urine Bilirubin 1+ H (Negative) Urine WBC 6 H (0-5) /hpf Hyaline Casts 211 H (0-2) /lpf Urine Mucus Many H (None) /hpf Coronavirus (PCR) (Not Detectd) Assessment and Plan (1) COPD (chronic obstructive pulmonary disease) Current Visit: Yes Status: Acute Code(s): J44.9 - CHRONIC OBSTRUCTIVE PULMONARY DISEASE, UNSPECIFIED SNOMED Code(s): 06192416 (2) Dehydration Current Visit: Yes Status: Acute Code(s): E86.0 - DEHYDRATION SNOMED Code(s): 53215068 Plan: 1patient with a recent history of fall now complaining of left lower chest pain shortness of breath and cough and being of some purulent sputum with evidence of left lower lobe infiltrate and effusion concerning for pneumonia and possible parapneumonic effusion/empyema in this patient tested positive for COVID about 2 weeks ago and a question of possible post COVID-pneumonia 2we will wait for the CT of the chest and possible need for thoracocentesis and cultures 3obtain sputum for gram stain and culture 4continue with the cefepime and vancomycin while waiting for the culture to fi nalize We will follow on clinical condition and cultures to further adjust medication if needed Thank you for this consultation will follow this patient along with you Time with Patient: Greater than 30
[2022-06-26] MEDS ORDERED: NOREPINEPHRINE 8 MG in SODIUM CHLORIDE 0.9% 250 ML IV ONE ×2
[2022-06-26] MEDS: ALBUTEROL HFA INHALER INHALATION SCH ×7 (01:01→23:20)
--- NOTE | 2022-06-26 01:59 | XR ---
EXAMINATION TYPE: XR Hip Limited LT DATE OF EXAM: 06/26/2022 COMPARISON: NONE HISTORY: Fall. Pain TECHNIQUE: 2 views FINDINGS: The acetabulum is intact. Proximal left femur appears intact. I see no fracture nor disloca tion. IMPRESSION: Negative left hip exam. No fracture seen.
--- NOTE | 2022-06-26 02:01 | XR ---
EXAMINATION TYPE: XR elbow limited LT DATE OF EXAM: 06/26/2022 COMPARISON: NONE HISTORY: Fall. Pain TECHNIQUE: 2 view FINDINGS: Elbow joint spaces are normal. I see no fracture. There is soft tissue swelling posterior t o the proximal ulna. There are multiple areas of lucency in the proximal radius and distal humerus. IMPRESSION: Soft tissue swelling. No fracture seen. Lucencies are seen that are consistent with multiple myeloma.
[2022-06-26] MEDS: NOREPINEPHRINE 4 MG in SODIUM CHLORIDE 0.9% 250 ML IV SCH (02:07)
[2022-06-26 04:53] LABS: Basophils % (A) 0 %; Eosinophils % (A) 0 %; Hypochromasia Slight; Lymphocytes # (A) 1.3 k/uL (1.0-4.8); Lymphocytes % (A) 11 %; MCH 32.6 pg (25.0-35.0); MCHC 32.6 g/dL (31.0-37.0); MCV 100.2 fL (80.0-100.0); Macrocytosis Slight; Mean Platelet Volume 9.8; Monocytes # (A) 0.5 k/uL (0-1.0); Monocytes % (A) 5 %; Neutrophils # (A) 10.1 k/uL (1.3-7.7); Neutrophils % (A) 83 %; Platelet Count 140 k/uL (150-450); RBC 1.89 m/uL (4.30-5.90); RDW 14.9 % (11.5-15.5); WBC 12.2 k/uL (3.8-10.6)
[2022-06-26 05:10] LABS: HGB 6.2 gm/dL (13.0-17.5)
[2022-06-26 05:12] LABS: ALT 38 U/L (4-49); AST 57 U/L (17-59); African American GFR (CKD) >90 (>60 ml/min/1.73 sqM); Albumin 1.8 g/dL (3.5-5.0); Alkaline Phosphatase 71 U/L (38-126); Anion Gap 10 mmol/L; Blood Urea Nitrogen 28 mg/dL (9-20); Calcium 7.2 mg/dL (8.4-10.2); Carbon Dioxide 12 mmol/L (22-30); Chloride 111 mmol/L (98-107); Glucose 116 mg/dL (74-99); LDH 673 U/L (313-618); Non-African American GFR(CKD) >90 (>60 ml/min/1.73 sqM); Sodium 133 mmol/L (137-145); Total Bilirubin 0.7 mg/dL (0.2-1.3); Total Protein 4.6 g/dL (6.3-8.2)
[2022-06-26] MEDS: SYMBICORT 160-4.5 MCG INHALER INHALATION SCH ×2 (08:34→19:08)
[2022-06-26] MEDS: TIOTROPIUM 2.5 MCG INHALER INHALATION SCH (08:34)
--- NOTE | 2022-06-26 09:42 | XR ---
EXAMINATION TYPE: XR chest 1V portable DATE OF EXAM: 06/26/2022 HISTORY: Shortness of breath. COMPARISON: None. TECHNIQUE: Single view of the chest is submitted. FINDINGS: Demonstrated are scattered senescent parenchymal change. Persistent left lower lobe infiltrate with parapneumonic effusion. The right lung is clear. The heart is stable. Hilar and mediastinal structures are within normal limits. Degenerative changes are seen of the dorsal spine. IMPRESSION: 1. Persistent left lower lobe infiltrate with parapneumonic effusion.
[2022-06-26] MEDS: CEFEPIME 2 GM in SODIUM CHLORIDE 0.9% 100 ML IVPB SCH ×2 (09:46→19:10)
[2022-06-26] MEDS: DEXAMETHASONE SOD PHOSPHATE 10 MG/ML 1 ML VIAL IVP SCH (09:47)
[2022-06-26] MEDS: CHOLECALCIFEROL 25 MCG (1000 IU) TABLET PO SCH (09:51)
[2022-06-26] MEDS: ASCORBIC ACID 500 MG TAB PO SCH (09:51)
[2022-06-26] MEDS: FAMOTIDINE 20 MG TAB PO SCH ×2 (09:51→20:45)
[2022-06-26] MEDS: ZINC SULFATE 220 MG CAP PO SCH (09:52)
[2022-06-26] MEDS: HEPARIN SODIUM,PORCINE/PF 5,000 UNIT/0.5 ML SYRINGE SQ SCH ×2 (09:52→21:35)
[2022-06-26] MEDS: VANCOMYCIN 750 MG in SODIUM CHLORIDE 0.9% 250 ML IVPB SCH ×2 (09:55→21:35)
[2022-06-26] MEDS ORDERED: LIDOCAINE 1% INJ 10MG/ML (30 ML VIAL-PF) SQ ONE (10:26)
--- NOTE | 2022-06-26 11:06 | XR ---
EXAMINATION TYPE: XR chest 1V portable DATE OF EXAM: 06/26/2022 HISTORY: Shortness of breath. COMPARISON: 06/26/22 TECHNIQUE: Single view of the chest is submitted. FINDINGS: Demonstrated are scattered senescent parenchymal change. Right-sided PICC line demonstrates its dist al tip overlying the SVC. No evidence for pneumothorax. Patchy infiltrate throughout the left lung and Developing infiltrate right midlung zone. Left-sided parapneumonic effusion. The heart is stable. Hilar and mediastinal structures are within normal limits. Degenerative changes are seen of the dorsal spine. IMPRESSION: 1. Progressive infiltrates throughout the left lung as well as small left-sided parapneumonic effusi on. Patchy infiltrate right perihilar region. PICC line as noted.
[2022-06-26] MEDS ORDERED: DORNASE ALFA 5 MG in SODIUM CHLORIDE 0.9% 50 ML IRRIGATION ONE (11:41)
[2022-06-26] MEDS ORDERED: ALTEPLASE 10 MG in SODIUM CHLORIDE 0.9% 50 ML IRRIGATION ONE (11:41)
--- NOTE | 2022-06-26 11:46 | P.PN ---
Subjective Progress Note Date: 06/26/22 Principal diagnosis: Sepsis, septic shock, left lower lobe pneumonia and left parapneumonic pleural effusion, possible empyema This is a 61-year-old -Luxembourger male with history of COPD, neuropathy, legally blind, patient came in with just over a week history of productive cough, shortness of breath, and weakness. Apparently his tested positive for COVID-19 infection, and the patient has been feeling run down for the last 1 week at least. Patient was seen in the ER, and he was noted to have positive corneal COVID-19 infection patient was also noted to have an extensive infiltrate in the left lower lobe, and a parapneumonic pleural effusion. Ultrasound of the fluid showed loculation, patient was noted to be hypotensive in the ER, he required placement on norepinephrine. He was given fluid boluses, started on vancomycin and cefepime. Admitted to the ICU, and I was asked to see him on consultation. After evaluating the patient and reviewing the ultrasound of the chest, I recommended interventional radiology evaluation for possible pigtail catheter placement in his left sided loculated pleural effusion. Patient may have a picture of empyema in addition to his pneumonia, patient may have underlying COVID-19 infection. In the meantime the patient is on room air, but he is requiring a small dose of norepinephrine. Received multiple fluid boluses while in the ER. Patient will be seen by interventional radiology, infectious disease, and he will be seen by thoracic surgery on consultation. Patient remains in the ICU, fell off the bed, sustained some left-sided and elbow injuries, but no fractures, x-rays were negative. Patient still on no repinephrine at 0.02 mcg/m remains on IV fluid at 1 25 mL/h remains on antibiotics in the form of cefepime and vancomycin. Hemoglobin dropped today to 6.2 and he will be receiving a unit of packed RBCs, patient was supposed to have a pigtail catheter placement in his loculated pleural effusion yesterday, he refused but he seems to be agreeable to have it done today. Patient is about the same compared to yesterday, nonetheless he is on room air and O2 sats is 97% on room air. WBC count is 12.2 hemoglobin is 6.2 electrolytes are normal renal profile is normal. Blood cultures are negative so far. Pro-calcitonin is 2.6. Today it is 2.04. Patient apparently pulled out his central line yesterday, and I believe the patient will need a PICC line for IV antibiotics may be long-term. Hence we'll arrange for PICC line as well as for pigtail catheter placement today. Objective - Vital Signs Vital signs: Vital Signs Temp 97.4 F L 06/26/22 09:50 Pulse 64 06/26/22 10:30 Resp 22 06/26/22 10:30 BP 93/81 06/26/22 10:30 Pulse Ox 97 06/26/22 10:30 FiO2 21 06/25/22 03:07 Intake & Output 06/25/22 06/26/22 06/26/22 18:59 06:59 18:59 Intake Total 3870 1775 810 Output Total 200 360 40 Balance 3670 1415 770 Weight 57.7 kg Intake: IV 1375 500 Sodium Chloride 0.9% 1, 1375 500 000 ml @ 125 mls/hr IV . Q8H [facility] Rx#:[id number] Intake, IV Titration 3870 Amount Cefepime 2 gm In Sodium 100 Chloride 0.9% 100 ml @ 200 mls/hr IVPB ONCE STA Rx#:[id number] Sodium Chloride 0.9% 1, 1390 000 ml @ 125 mls/hr IV . Q8H [facility] Rx#:[id number] Sodium Chloride 0.9% 1, 130 000 ml @ 130 mls/hr IV . Q7H42M STA Rx#:[id number] Sodium Chloride 0.9% 1, 1000 000 ml @ 999 mls/hr IV . Q1H1M ONE Rx#:[id number] Sodium Chloride 0.9% 1, 1000 000 ml @ 999 mls/hr IV . Q1H1M ONE Rx#:[id number] Vancomycin 750 mg In 250 Sodium Chloride 0.9% 250 ml @ 125 mls/hr IVPB ONCE ONE Rx#:[id number] Oral 400 Blood Product 310 Rc As-1 Unit 310 [id number] Output: Urine 200 360 40 Other: Voiding Method Urinal External Catheter # Voids 1 1 - Exam General: 61-year-old male Cachectic looking frail and chronically ill, on room air. HEAD: Atraumatic, normocephalic.. EYES: PERRLA, EOMI, conjunctiva normal, no discharge. ENT: Moist mucous membranes, throat is clear. RESPIRATORY: Crackles at the left base, no rhonchi no wheezes. C/V: Distant S1 and S2, no S3 gallop. ABD: Soft nontender no megaly no rebound no guarding EXT: No clubbing edema or cyanosis SKIN: Evidence of significant vitiligo involving the back and the chest. NEURO: Alert and oriented 3Focal deficits., Patient is legally blind. Psychiatric: Normal mood affect and normal mental status examination. - Labs CBC & Chem 7: 06/26/22 04:30 06/26/22 04:30 Labs: Abnormal Lab Results - Last 24 Hours (Table) 06/25/22 06/26/22 06/26/22 Range/Units 05:30 04:30 04:30 WBC (3.8-10.6) k/uL RBC (4.30-5.90) m/uL Hgb (13.0-17.5) gm/dL Hct (39.0-53.0) % MCV (80.0-100.0) fL Plt Count (150-450) k/uL Neutrophils # (1.3-7.7) k/uL Sodium 133 L (137-145) mmol/L Chloride 111 H (98-107) mmol/L Carbon Dioxide 12 L (22-30) mmol/L BUN 28 H (9-20) mg/dL Creatinine 0.60 L (0.66-1.25) mg/dL Glucose 116 H (74-99) mg/dL Calcium 7.2 L (8.4-10.2) mg/dL Lactate Dehydrogenase 673 H (313-618) U/L Total Protein 4.6 L (6.3-8.2) g/dL Albumin 1.8 L (3.5-5.0) g/dL Procalcitonin 2.61 H 2.04 H (0.02-0.09) ng/mL Crossmatch 06/26/22 06/26/22 Range/Units 04:30 06:26 WBC 12.2 H (3.8-10.6) k/uL RBC 1.89 L (4.30-5.90) m/uL Hgb 6.2 L* D (13.0-17.5) gm/dL Hct 19.0 L* (39.0-53.0) % MCV 100.2 H (80.0-100.0) fL Plt Count 140 L (150-450) k/uL Neutrophils # 10.1 H (1.3-7.7) k/uL Sodium (137-145) mmol/L Chloride (98-107) mmol/L Carbon Dioxide (22-30) mmol/L BUN (9-20) mg/dL Creatinine (0.66-1.25) mg/dL Glucose (74-99) mg/dL Calcium (8.4-10.2) mg/dL Lactate Dehydrogenase (313-618) U/L Total Protein (6.3-8.2) g/dL Albumin (3.5-5.0) g/dL Procalcitonin (0.02-0.09) ng/mL Crossmatch See Detail Microbiology - Last 24 Hours (Table) 06/24/22 19:36 Blood Culture - Preliminary Blood No Growth after 24 hours 06/24/22 19:55 Blood Culture - Preliminary Blood No Growth after 24 hours Assessment and Plan Assessment: Impression: Sepsis and septic shock Left lower lobe pneumonia with complicated parapneumonic effusion, possible empyema, possible hemothorax in the left pleural space considering the patient had previous history of fall and may be trauma to the chest. COVID-19 infection History of underlying COPD Hypotension secondary to sepsis and septic shock Recommendation: Continue to monitor in the ICU Continue antibiotics empirically including cefepime and vancomycin Continue bronchodilators Proceed with a pigtail catheter. GI and DVT prophylaxis Titrate norepinephrine accordingly. We will continue to follow Prognosis is guarded Time with Patient: Less than 30
--- NOTE | 2022-06-26 11:48 | P.PCN ---
Date of Procedure: 06/26/22 Preoperative Diagnosis: left loculated pleural effusion Postoperative Diagnosis: same Procedure(s) Performed: ultrasound guide left chest tube placement Anesthesia: local Estimated Blood Loss (ml): 5 Pathology: other (speciment to microbiology) Condition: stable Disposition: no change Indications for Procedure: empyema Operative Findings: 8.5 fr tube placed posterior approach Description of Procedure: cxr pending, no immediate complication
--- NOTE | 2022-06-26 11:52 | IR ---
EXAMINATION TYPE: IR cvc insert >=5 years DATE OF EXAM: 06/26/2022 COMPARISON: NONE CLINICAL HISTORY: Empyema Needs long-term intravenous access for antibiotics. PROCEDURE: Hand hygiene obtained with soap and water and alcohol-based hand rub. After informed consent, the skin overlying the left brachial vein was localized with ultrasound and n oted to be compressible and patent. An ultrasound image was obtained and submitted on the patient's chart. The overlying skin was prepped and draped and Lidocaine was used for local anesthesia. A ski n jeffrey was made with a scalpel. Access was gained to the vein under ultrasound guidance with a 21 ga uge needle and a 0.018 inch wire was advanced could not be advanced centrally. Attention then direct ed to the right upper extremity. Using similar technique the right brachial vein was noted be angie sible and patent by ultrasound. The skin overlying was prepped and draped. Lidocaine was used for loc al anesthesia. Skin jeffrey was made with a scalpel. Access was gained under direct ultrasound guidance with a 21-gauge needle. A 0.018 inch wire was advanced centrally. Access site was dilated with Peel-A way sheath and catheter tailored to the appropriate length and advanced easily. Catheter was aspirate d and flushed with saline. Post procedure chest x-ray verified placement with the tip in the superior vena cava. Maximal barrier technique is utilized. Ultrasound image is documented on the chart. Ult rasound used with sterile technique. IMPRESSION: STATUS POST ULTRASOUND GUIDED PICC LINE PLACEMENT, READY FOR USE. THIS PROCEDURE WAS PER FORMED BY THE UNDERSIGNED.
--- NOTE | 2022-06-26 12:26 | XR ---
EXAMINATION TYPE: XR chest 1V portable DATE OF EXAM: 06/26/2022 COMPARISON: Chest x-ray same dated earlier time HISTORY: Chest tube placement TECHNIQUE: Single frontal view of the chest is obtained. FINDINGS: There is been interval placement of a pigtail catheter at the posterior left lung base. Di fficult to exclude a minimal left apical pneumothorax. No other significant change. IMPRESSION: Status post left chest tube placement. There may be minimal left pneumothorax.
--- NOTE | 2022-06-26 12:58 | P.PN ---
Subjective Progress Note Date: 06/26/22 Principal diagnosis: Left lower lobe pneumonia with complicated loculated parapneumonic effusion, possible empyema. Past medical history significant for COPD, neuropathy, is legally blind, a 90 pound weight loss over one year and chronic ongoing tobacco dependence and daily EtOH use of drinking 1 beer per day. The patient was seen and examined in follow-up today 06/26/2022 at his bedside in the intensive care unit. Currently is lying in bed, is awake, alert, oriented 3 and is in no acute apparent distress. According to the patient's bedside nurse, the patient had a fall out of bed last night with an left elbow injury, although the follow-up x-ray showed no fracture. The patient also laboratory results this morning show a WBC count of 12.2, hemoglobin 6.2, hematocrit 19, platelets 140, sodium 133, potassium 4.0, CO2 12, BUN 28, creatinine 0.60, glucose 116, calcium 7.2, alkaline phosphate 673, albumin 1.80 calcitonin level 2.04. The patient did have a right-sided PICC line placed today by interventional radiology. The patient also underwent a placement of a left sided pleural pigtail catheter placed by interventional radiology. Currently the left chest pigtail catheter is connected to low continuous wall suction -20 cm H2O. Intermittent air leak is present. Draining thick serosanguineous purulent drainage. Plan is for alteplase/dornase pleural instillation today. Norepinephrine drip is currently off. Oxygen saturations are 96% on room air. He remains on cefepime and vancomycin for antibiotic coverage which is managed by infectious disease. Objective - Vital Signs Vital signs: Vital Signs Temp 97 F L 06/26/22 12:00 Pulse 117 H 06/26/22 12:30 Resp 30 H 06/26/22 12:30 BP 105/21 06/26/22 12:30 Pulse Ox 96 06/26/22 12:30 FiO2 21 06/25/22 03:07 Intake & Output 06/25/22 06/26/22 06/26/22 18:59 06:59 18:59 Intake Total 3870 1775 1060 Output Total 200 360 590 Balance 3670 1415 470 Weight 57.7 kg Intake: IV 1375 750 Sodium Chloride 0.9% 1, 1375 750 000 ml @ 125 mls/hr IV . Q8H [facility] Rx#:[id number] Intake, IV Titration 3870 Amount Cefepime 2 gm In Sodium 100 Chloride 0.9% 100 ml @ 200 mls/hr IVPB ONCE STA Rx#:[id number] Sodium Chloride 0.9% 1, 1390 000 ml @ 125 mls/hr IV . Q8H [facility] Rx#:[id number] Sodium Chloride 0.9% 1, 130 000 ml @ 130 mls/hr IV . Q7H42M [facility] Rx#:[id number] Sodium Chloride 0.9% 1, 1000 000 ml @ 999 mls/hr IV . Q1H1M [facility] Rx#:[id number] Sodium Chloride 0.9% 1, 1000 000 ml @ 999 mls/hr IV . Q1H1M [facility] Rx#:[id number] Vancomycin 750 mg In 250 Sodium Chloride 0.9% 250 ml @ 125 mls/hr IVPB ONCE ONE Rx#:[id number] Oral 400 Blood Product 310 Rc As-1 Unit 310 [id number] Output: Drainage 400 Left Posterior Chest 400 Urine 200 360 190 Other: Voiding Method Urinal External Catheter # Voids 1 1 - Exam CONSTITUTIONAL: Sitting up in bed, in the intensive care unit, appears comfo rtable, cooperative, no apparent acute distress. Cachectic. HEENT: Neck is supple, no JVD, no lymphadenopathy. RESPIRATORY: Lungs sounds essentially clear throughout, diminished to his bilateral bases, left greater than right. Respirations are symmetrical and nonlabored. Currently on room air with oxygen saturations 96%. Strong cough. CARDIOVASCULAR: Regular rhythm and rate. S1 and S2 present, negative for S3, gallop or murmur. Palpable peripheral pulses bilaterally, no edema to his rosanne ateral lower extremities. No calf pain or tenderness noted. GASTROINTESTINAL: Abdomen soft, nontender, nondistended. Active bowel sounds present 4 quadrants. Tolerating diet. No guarding or rigidity. GENITOURINARY: Continues to void. INTEGUMENTARY: Skin is warm and dry with no evidence of clubbing or cyanosis. NEUROLOGIC: Cranial nerves II through XII intact. No focal deficits. MUSKULOSKELETAL: Able to move all extremities, strength equal bilaterally. PSYCHIATRIC: Alert and oriented to person place and time, appropriate affect, intact judgment and insight. INVASIVE LINES AND TUBES: Right arm PICC line in place and functioning. Left chest pigtail catheter in place to low continuous wall suction -20 cm H2O. Intermittent air leak is present. Draining thick serosanguineous purulent drainage. - Allied health notes Allied health notes reviewed: nursing - Labs CBC & Chem 7: 06/26/22 04:30 06/26/22 04:30 Labs: Abnormal Lab Results - Last 24 Hours (Table) 06/25/22 06/26/22 06/26/22 Range/Units 05:30 04:30 04:30 WBC (3.8-10.6) k/uL RBC (4.30-5.90) m/uL Hgb (13.0-17.5) gm/dL Hct (39.0-53.0) % MCV (80.0-100.0) fL Plt Count (150-450) k/uL Neutrophils # (1.3-7.7) k/uL Sodium 133 L (137-145) mmol/L Chloride 111 H (98-107) mmol/L Carbon Dioxide 12 L (22-30) mmol/L BUN 28 H (9-20) mg/dL Creatinine 0.60 L (0.66-1.25) mg/dL Glucose 116 H (74-99) mg/dL Calcium 7.2 L (8.4-10.2) mg/dL Lactate Dehydrogenase 673 H (313-618) U/L Total Protein 4.6 L (6.3-8.2) g/dL Albumin 1.8 L (3.5-5.0) g/dL Procalcitonin 2.61 H 2.04 H (0.02-0.09) ng/mL Crossmatch 06/26/22 06/26/22 Range/Units 04:30 06:26 WBC 12.2 H (3.8-10.6) k/uL RBC 1.89 L (4.30-5.90) m/uL Hgb 6.2 L* D (13.0-17.5) gm/dL Hct 19.0 L* (39.0-53.0) % MCV 100.2 H (80.0-100.0) fL Plt Count 140 L (150-450) k/uL Neutrophils # 10.1 H (1.3-7.7) k/uL Sodium (137-145) mmol/L Chloride (98-107) mmol/L Carbon Dioxide (22-30) mmol/L BUN (9-20) mg/dL Creatinine (0.66-1.25) mg/dL Glucose (74-99) mg/dL Calcium (8.4-10.2) mg/dL Lactate Dehydrogenase (313-618) U/L Total Protein (6.3-8.2) g/dL Albumin (3.5-5.0) g/dL Procalcitonin (0.02-0.09) ng/mL Crossmatch See Detail Microbiology - Last 24 Hours (Table) 06/24/22 19:36 Blood Culture - Preliminary Blood No Growth after 24 hours 06/24/22 19:55 Blood Culture - Preliminary Blood No Growth after 24 hours - Imaging and Cardiology Chest x-ray: report reviewed, image reviewed Assessment and Plan Assessment: 1. Left lower lobe pneumonia with complicated loculated parapneumonic effusion, possible empyema, status post left pleural pigtail placement by interventional radiology 2. Sepsis 4. Status post fall from standing 5. COVID-19 virus infection 6. Shortness of breath, likely secondary to above 7. Chronic obstructive pulmonary disease 8. Malnutrition, cachectic 90 pound weight loss over one year period 9. Chronic ongoing tobacco dependence 10. Daily EtOH use, drinks 1 beer daily 11. Legally blind Plan: 1. Alteplase/dornase was instilled pleural instillation per his left pleural pigtail catheter. 2. Continue to monitor daily chest x-rays. 3. Continue to encourage use of his incentive spirometry 10 times every hour while awake. 4. Continue antibiotics, currently on cefepime and vancomycin managed by infectious disease. 5. GI and DVT prophylaxis. 6. Norepinephrine drip management per pulmonary critical care management. 7. Monitor pleural fluid culture results. 8. Reinforced the importance of risk modification including smoking cessation with the patient. 9. More recommendations to follow based on patient's clinical course. Time with Patient: Greater than 30
[2022-06-26 14:37] LABS: Anisocytosis Slight; HCT 28.1 % (39.0-53.0); Hypochromasia Slight; MCH 31.8 pg (25.0-35.0); MCHC 32.9 g/dL (31.0-37.0); MCV 96.5 fL (80.0-100.0); Mean Platelet Volume 10.4; Platelet Count 107 k/uL (150-450); RBC 2.91 m/uL (4.30-5.90); RDW 16.3 % (11.5-15.5); WBC 9.9 k/uL (3.8-10.6)
[2022-06-26 14:38] LABS: HGB 9.2 gm/dL (13.0-17.5)
--- NOTE | 2022-06-26 15:10 | P.PN ---
Subjective Progress Note Date: 06/26/22 Principal diagnosis: left-sided pneumonia/empyema Patient is a 61-year-old -[place] male with a past medical history significant for COPD, recently tested positive for covid presenting to the hospital with left lower chest pain shortness of breath and cough, patient did have a positive Covid test, patient also noticed to have left-sided effusion concerning for empyema with a seated did shows bronchopneumonia, patient is status post chest tube placement by interventional radiology on 06/26/2022. On today's evaluation that is 06/26/2022, the patient is afebrile the patient is currently breathing comfortably on room air so doubling of pain to the left side of the chest no vomiting no diarrhea or any other changes reported by the nursing staff Objective - Vital Signs Vital signs: Vital Signs Temp 97 F L 06/26/22 12:00 Pulse 80 06/26/22 14:00 Resp 25 H 06/26/22 14:30 BP 87/76 06/26/22 14:30 Pulse Ox 97 06/26/22 14:15 FiO2 21 06/25/22 03:07 Intake & Output 06/25/22 06/26/22 06/26/22 18:59 06:59 18:59 Intake Total 3870 1775 1060 Output Total 200 360 590 Balance 3670 1415 470 Weight 57.7 kg 57.7 kg Intake: IV 1375 750 Sodium Chloride 0.9% 1, 1375 750 000 ml @ 125 mls/hr IV . Q8H [facility] Rx#:[id number] Intake, IV Titration 3870 Amount Cefepime 2 gm In Sodium 100 Chloride 0.9% 100 ml @ 200 mls/hr IVPB ONCE STA Rx#:[id number] Sodium Chloride 0.9% 1, 1390 000 ml @ 125 mls/hr IV . Q8H [facility] Rx#:[id number] Sodium Chloride 0.9% 1, 130 000 ml @ 130 mls/hr IV . Q7H42M [facility] Rx#:[id number] Sodium Chloride 0.9% 1, 1000 000 ml @ 999 mls/hr IV . Q1H1M [facility] Rx#:[id number] Sodium Chloride 0.9% 1, 1000 000 ml @ 999 mls/hr IV . Q1H1M [facility] Rx#:[id number] Vancomycin 750 mg In 250 Sodium Chloride 0.9% 250 ml @ 125 mls/hr IVPB ONCE ONE Rx#:[id number] Oral 400 Blood Product 310 Rc As-1 Unit 310 [id number] Output: Drainage 400 Left Posterior Chest 400 Urine 200 360 190 Other: Voiding Method Urinal External Catheter Incontinent # Voids 1 1 - Exam GENERAL DESCRIPTION: middle-age male lying in bed in no distress RESPIRATORY SYSTEM: Unlabored breathing , few crackles at the left base HEART: S1 S2 regular rate and rhythm , ABDOMEN: Soft , no tenderness EXTREMITIES: No edema feet - Labs CBC & Chem 7: 06/26/22 12:50 06/26/22 04:30 Labs: Abnormal Lab Results - Last 24 Hours (Table) 06/25/22 06/26/22 06/26/22 Range/Units 05:30 04:30 04:30 WBC (3.8-10.6) k/uL RBC (4.30-5.90) m/uL Hgb (13.0-17.5) gm/dL Hct (39.0-53.0) % MCV (80.0-100.0) fL RDW (11.5-15.5) % Plt Count (150-450) k/uL Neutrophils # (1.3-7.7) k/uL Sodium 133 L (137-145) mmol/L Chloride 111 H (98-107) mmol/L Carbon Dioxide 12 L (22-30) mmol/L BUN 28 H (9-20) mg/dL Creatinine 0.60 L (0.66-1.25) mg/dL Glucose 116 H (74-99) mg/dL Calcium 7.2 L (8.4-10.2) mg/dL Lactate Dehydrogenase 673 H (313-618) U/L Total Protein 4.6 L (6.3-8.2) g/dL Albumin 1.8 L (3.5-5.0) g/dL Procalcitonin 2.61 H 2.04 H (0.02-0.09) ng/mL Crossmatch 06/26/22 06/26/22 06/26/22 Range/Units 04:30 06:26 12:50 WBC 12.2 H (3.8-10.6) k/uL RBC 1.89 L 2.91 L (4.30-5.90) m/uL Hgb 6.2 L* D 9.2 L D (13.0-17.5) gm/dL Hct 19.0 L* 28.1 L (39.0-53.0) % MCV 100.2 H (80.0-100.0) fL RDW 16.3 H (11.5-15.5) % Plt Count 140 L 107 L (150-450) k/uL Neutrophils # 10.1 H (1.3-7.7) k/uL Sodium (137-145) mmol/L Chloride (98-107) mmol/L Carbon Dioxide (22-30) mmol/L BUN (9-20) mg/dL Creatinine (0.66-1.25) mg/dL Glucose (74-99) mg/dL Calcium (8.4-10.2) mg/dL Lactate Dehydrogenase (313-618) U/L Total Protein (6.3-8.2) g/dL Albumin (3.5-5.0) g/dL Procalcitonin (0.02-0.09) ng/mL Crossmatch See Detail Microbiology - Last 24 Hours (Table) 06/24/22 19:36 Blood Culture - Preliminary Blood No Growth after 24 hours 06/24/22 19:55 Blood Culture - Preliminary Blood No Growth after 24 hours Assessment and Plan (1) Pneumonia Current Visit: Yes Status: Acute Code(s): J18.9 - PNEUMONIA, UNSPECIFIED ORGANISM SNOMED Code(s): 081281612 Plan: 1patient with a recent history of fall now complaining of left lower chest pain shortness of breath and cough and being of some purulent sputum with evidence of left lower lobe infiltrate and effusion concerning for pneumonia and possible parapneumonic effusion/empyema in this patient tested positive for COVID about 2 weeks ago and a question of possible post COVID-pneumonia 2 patient with likely left lower lobe pneumonia and possible empyema in this patient who is status post chest tube placement fluid has been sent for cultures which are currently pending 3-patient to continue with cefepime and vancomycin while waiting for the cultures to finalize Time with Patient: Less than 30
--- NOTE | 2022-06-26 16:16 | US ---
EXAMINATION TYPE: US guided chest tube insertion DATE OF EXAM: 06/26/2022 COMPARISON: Chest x-ray same date HISTORY: left Pleural effusion. FINDINGS: Maximal barrier technique was utilized. The skin overlying a suitable pocket of fluid in t he posterior left chest was localized and the overlying skin prepped and draped. Lidocaine was used for local anesthesia. Ultrasound was used with sterile technique. A 21 needle was advanced into the pleural fluid collection using ultrasound and wire was advanced, needle was removed and transitional dilator was advanced over the wire, wire was upsized and the access site dilated. 8.5 Kinyarwanda catheter was advanced over the wire and fixed in place, wire was removed. Fluid returned through the catheter . Hemostasis achieved. 20 cc obtained for laboratory analysis. Catheter attached to water seal. Post procedure chest x-ray pending. There is no immediate complication. The patient discharged in stable condition without complication. IMPRESSION: STATUS POST ULTRASOUND GUIDED PLEURAL DRAINAGE TUBE CATHETER PLACEMENT, POST PROCEDURE EST X-RAY PENDING. THIS PROCEDURE WAS PERFORMED BY THE UNDERSIGNED.
[2022-06-26] MEDS: DEXMEDETOMIDINE/0.9% NACL(PMX) 400 MCG in EMPTY BAG 1 BAG IV SCH (17:36)
[2022-06-26] MEDS: SODIUM CHLORIDE 0.9% 1,000 ML IV SCH ×2 (17:42→19:41)
[2022-06-26] MEDS ORDERED: LORazepam 1 MG/0.5 ML VIAL IV STA (18:51)
[2022-06-26 19:29] LABS: ABG Base Excess -18.8 mmol/L; ABG PH 7.29 (7.35-7.45); ABG PO2 108 mmHg (83-108); ABG TCO2 8 mmol/L (19-24); Allen Test Performed? Yes
[2022-06-26 19:32] LABS: ABG PCO2 16 mmHg (35-45)
[2022-06-26 19:33] LABS: ABG HCO3 8 mmol/L (21-25)
[2022-06-26] MEDS ORDERED: SODIUM BICARB 8.4% 50 ML SYR (1 MEQ/ML) IV STA (19:48)
[2022-06-26] MEDS: DEXTROSE 5%-0.45% NACL 1,000 ML IV SCH (19:55)
[2022-06-26] MEDS ORDERED: VANCOMYCIN TROUGH DUE 1 EACH MISC MISCELLANE ONE (20:00)
[2022-06-26 21:17] LABS: Appearance,BF Cloudy
[2022-06-26] MEDS: DEXTROSE 5% IN WATER 1,000 ML with SODIUM BICARB (1 MEQ/ML) 150 ML IV SCH (21:31)
[2022-06-27] MEDS: CEFEPIME 2 GM in SODIUM CHLORIDE 0.9% 100 ML IVPB SCH ×3 (00:07→14:12)
[2022-06-27 00:13] LABS: Glucose,Whole Blood 212 mg/dL (70-110)
[2022-06-27] MEDS: DEXMEDETOMIDINE/0.9% NACL(PMX) 400 MCG in EMPTY BAG 1 BAG IV SCH ×5 (00:16→22:02)
[2022-06-27 00:21] LABS: ABG Base Excess -9.2 mmol/L; ABG HCO3 15 mmol/L (21-25); ABG Oxygen Saturation 93.9 % (94-97); ABG PCO2 24 mmHg (35-45); ABG PH 7.42 (7.35-7.45); ABG PO2 82 mmHg (83-108); ABG TCO2 16 mmol/L (19-24); Allen Test Performed? Yes
[2022-06-27] MEDS: NOREPINEPHRINE 4 MG in SODIUM CHLORIDE 0.9% 250 ML IV SCH ×3 (01:02→22:01)
[2022-06-27 02:57] LABS: Glucose, BF Source Pleural Fluid; Glucose, Body Fluid 35 mg/dL; T. Protein, Body Fluid Source Pleural Fluid; Total Protein, Body Fluid 1800 mg/dL
[2022-06-27 03:10] LABS: LDH, Body Fluid Source Pleural Fluid
[2022-06-27] MEDS ORDERED: propofoL 100 ML IV ONE (03:17)
[2022-06-27] MEDS: ALBUTEROL HFA INHALER INHALATION SCH ×7 (03:48→23:58)
[2022-06-27 04:45] LABS: Anisocytosis Slight; HCT 28.1 % (39.0-53.0); Hypochromasia Marked; MCH 31.7 pg (25.0-35.0); MCHC 31.8 g/dL (31.0-37.0); MCV 99.6 fL (80.0-100.0); Macrocytosis Slight; Mean Platelet Volume 10.3; Poikilocytosis Slight; RBC 2.82 m/uL (4.30-5.90); RDW 16.8 % (11.5-15.5); WBC 9.7 k/uL (3.8-10.6)
[2022-06-27 05:09] LABS: ALT 40 U/L (4-49); AST 60 U/L (17-59); African American GFR (CKD) >90 (>60 ml/min/1.73 sqM); Albumin 1.4 g/dL (3.5-5.0); Alkaline Phosphatase 57 U/L (38-126); Anion Gap 6 mmol/L; Blood Urea Nitrogen 29 mg/dL (9-20); Calcium 6.5 mg/dL (8.4-10.2); Carbon Dioxide 15 mmol/L (22-30); Chloride 109 mmol/L (98-107); Glucose 205 mg/dL (74-99); Magnesium 1.6 mg/dL (1.6-2.3); Non-African American GFR(CKD) >90 (>60 ml/min/1.73 sqM); Potassium 3.4 mmol/L (3.5-5.1); Sodium 130 mmol/L (137-145); Total Bilirubin 1.3 mg/dL (0.2-1.3); Total Protein 3.9 g/dL (6.3-8.2)
[2022-06-27] MEDS: VANCOMYCIN 1,000 MG in SODIUM CHLORIDE 0.9% 250 ML IVPB SCH ×2 (05:09→17:50)
[2022-06-27] MEDS ORDERED: Potassium Replacement Protocol 1 EACH MISC MISCELLANE PRN (05:14)
[2022-06-27] MEDS ORDERED: Magnesium Replacement Protocol 1 EACH MISC MISCELLANE PRN (05:15)
[2022-06-27] MEDS: MAGNESIUM SULFATE-D5W PMX 1 GM in DEXTROSE/WATER 1 100ML.BAG IVPB SCH ×2 (05:29→06:33)
[2022-06-27] MEDS: POTASSIUM CHLORIDE 10 MEQ in WATER FOR INJECTION 1 100ML.BAG IVPB SCH ×4 (05:36→10:10)
[2022-06-27 05:45] LABS: Glucose,Whole Blood 273 mg/dL (70-110)
[2022-06-27 05:49] LABS: Band Neutrophils % 25 %; Lymphocytes # (M) 0.19 k/uL (1.0-4.8); Monocytes # (M) 0.49 k/uL (0-1.0); Neutrophils % (M) 69 %; Nucleated Red Blood Cells 0 /100 WBC (0-0); Total Cells Counted 200
[2022-06-27 05:51] LABS: Anisocytosis (M) Present; Platelet Count 75 k/uL (150-450); Poikilocytosis (M) Present; Target Cells Present; Tear Drop Cells Present
--- NOTE | 2022-06-27 07:54 | XR ---
EXAMINATION TYPE: XR chest 1V portable DATE OF EXAM: 06/27/2022 3:57 AM COMPARISON: Chest radiographs from 06/26/2022 TECHNIQUE: XR chest 1V portable Portable AP radiograph of the chest. CLINICAL INDICATION:Male, 61 years old with history of Loculated left pleural effusion; FINDINGS: Lungs/Pleura: Scattered opacities are seen throughout the lungs which are not significantly changed g iven differences in technique. No appreciable pneumothorax. Left-sided pleural effusion present. Pulmonary vascularity: Unremarkable. Heart/mediastinum: Cardiomediastinal silhouette is partially obscured due to overlying and adjacent o pacities. Musculoskeletal: Degenerative changes of the shoulder joints. Lines/Tubes: Pigtail catheter similar position projecting heart. IMPRESSION: Similar scattered reticular opacities with similar position of the left pigtail catheter. No apprecia ble pneumothorax.
[2022-06-27] MEDS ORDERED: DORNASE ALFA 5 MG in SODIUM CHLORIDE 0.9% 50 ML IRRIGATION ONE (08:28)
[2022-06-27] MEDS ORDERED: ALTEPLASE 10 MG in SODIUM CHLORIDE 0.9% 50 ML IRRIGATION ONE (08:28)
[2022-06-27] MEDS: SYMBICORT 160-4.5 MCG INHALER INHALATION SCH ×2 (08:34→20:15)
[2022-06-27] MEDS: TIOTROPIUM 2.5 MCG INHALER INHALATION SCH (08:34)
[2022-06-27] MEDS: HEPARIN SODIUM,PORCINE/PF 5,000 UNIT/0.5 ML SYRINGE SQ SCH (08:41)
[2022-06-27] MEDS: CHOLECALCIFEROL 25 MCG (1000 IU) TABLET PO SCH (08:41)
[2022-06-27] MEDS: DEXAMETHASONE SOD PHOSPHATE 10 MG/ML 1 ML VIAL IVP SCH (08:41)
[2022-06-27] MEDS: ASCORBIC ACID 500 MG TAB PO SCH (08:41)
[2022-06-27] MEDS: ZINC SULFATE 220 MG CAP PO SCH (08:41)
[2022-06-27] MEDS: FAMOTIDINE 20 MG TAB PO SCH ×2 (08:41→20:35)
--- NOTE | 2022-06-27 08:46 | P.PN ---
Subjective Progress Note Date: 06/27/22 Principal diagnosis: Left lower lobe pneumonia with complicated loculated parapneumonic effusion, possible empyema. Past medical history significant for COPD, neuropathy, is legally blind, a 90 pound weight loss over one year and chronic ongoing tobacco dependence and daily EtOH use of drinking 1 beer per day. Status post day #1 left chest pleural pigtail catheter placement by interventional radiology. The patient was seen and examined in follow-up today 06/27/2022 at his bedside in the intensive care unit. Currently the patient is laying in bed in the intensive care unit, opens his eyes easily with verbal stimuli, is confused at this time and cannot say what date it is or where he is. He is in no acute apparent distress. He remains on norepinephrine drip at 0.2 mcg/kg/m for blood pressure support. IV fluids of dextrose 5% with sodium bicarbonate infusing at 75 mL per hour. Left pleural pigtail catheter remains in place to low continuous wall suction -20 cm H2O. No air leak is present. Draining thin serosanguineous drainage with 120 mL output in the last 8 hours and 1450 mL output in the last 24 hours. He did receive a dose of alteplase/dornase pleural instillation yesterday. Laboratory results this morning show a WBC count of 9.7, hemoglobin 9.0, hematocrit 28.1, platelet 75, sodium 130, potassium 3.4, chloride 109, CO2 15, BUN 29, creatinine 0.42, glucose 205, calcium 6.5, magnesium 1.6, and albumin 1.4. ABG results this morning show a pH of 7.42, pCO2 of 24, PaO2 82, HCO3 15, oxygen saturation 93.9 and base excess -9.2. He is currently on 3 L nasal cannula with oxygen saturations 100%. The patient has been afebrile the last 24 hours. Objective - Vital Signs Vital signs: Vital Signs Temp 97.5 F L 06/27/22 04:00 Pulse 48 L 06/27/22 07:00 Resp 11 L 06/27/22 07:00 BP 89/68 06/27/22 07:00 Pulse Ox 100 06/27/22 07:00 FiO2 21 06/25/22 03:07 Intake & Output 06/26/22 06/27/22 06/27/22 18:59 06:59 18:59 Intake Total 2318.656 1576.530 125 Output Total 665 455 20 Balance 9255.107 9926.530 105 Weight 57.7 kg 58.7 kg Intake: IV 1500 1425 125 Dextrose 5% in Water 1, 750 75 000 ml @ 75 mls/hr IV . [id number] [facility] with Sodium Bicarb (1 Meq/ml) 150 ml Rx#:[id number] Dextrose 5%-0.45% NaCl 1, 500 50 000 ml @ 50 mls/hr IV . Q20H [facility] Rx#:[id number] Norepinephrine 4 mg In 50 Sodium Chloride 0.9% 250 ml @ 0.03 MCG/KG/MIN 6. 012 mls/hr IV .Q24H [facility] Rx#:[id number] Sodium Chloride 0.9% 1, 1500 125 000 ml @ 125 mls/hr IV . Q8H [facility] Rx#:[id number] Intake, IV Titration 8.656 151.530 Amount Dexmedetomidine/0.9% NaCl 8.656 53.735 (Pmx) 400 mcg In Empty Bag 1 bag @ 1.2 MCG/KG/HR 17.31 mls/hr IV .Q5H47M [facility] Rx#:[id number] Norepinephrine 4 mg In 97.795 Sodium Chloride 0.9% 250 ml @ 0.03 MCG/KG/MIN 6. 012 mls/hr IV .Q24H [facility] Rx#:[id number] Oral 500 Blood Product 310 Rc As-1 Unit 310 [id number] Output: Chest Tube Drainage 110 left posterior chest 110 Drainage 400 120 Left Posterior Chest 400 120 Urine 265 225 20 Other: Voiding Method Incontinent Indwelling Catheter # Voids 1 - Exam CONSTITUTIONAL: Laying in bed, in the intensive care unit, appears comfortable, confused, and is in no apparent acute distress. Cachectic. HEENT: Neck is supple, no JVD, no lymphadenopathy. RESPIRATORY: Lungs sounds essentially clear throughout, diminished to his bilateral bases, left greater than right. Respirations are symmetrical and nonlabored. Currently on 3 L nasal cannula with oxygen saturations 100%. Strong cough. CARDIOVASCULAR: Regular rhythm and bradycardic rate. S1 and S2 present, nega tive for S3, gallop or murmur. Palpable peripheral pulses bilaterally, no edema to his bilateral lower extremities. No calf pain or tenderness noted. GASTROINTESTINAL: Abdomen soft, nontender, nondistended. Active bowel sounds present 4 quadrants. No guarding or rigidity. GENITOURINARY: Victor catheter in place for accurate I's and O's. Marginal urine output in the last 8 hours. INTEGUMENTARY: Skin is warm and dry with no evidence of clubbing or cyanosis. NEUROLOGIC: Unable to accurately assess this a.m. as the patient is confused. Patient is legally blind. MUSKULOSKELETAL: Able to move all extremities, strength equal bilaterally. PSYCHIATRIC: Alert and confused. INVASIVE LINES AND TUBES: Left chest pigtail catheter in place to low continuous wall suction -20 cm H2O. No air leak is present. Draining thin serosanguineous drainage. - Allied health notes Allied health notes reviewed: nursing - Labs CBC & Chem 7: 06/27/22 04:19 06/27/22 04:19 Labs: Abnormal Lab Results - Last 24 Hours (Table) 06/26/22 06/26/22 06/26/22 Range/Units 04:30 06:26 12:50 RBC 2.91 L (4.30-5.90) m/uL Hgb 9.2 L D (13.0-17.5) gm/dL Hct 28.1 L (39.0-53.0) % RDW 16.3 H (11.5-15.5) % Plt Count 107 L (150-450) k/uL Neutrophils # (Manual) (1.3-7.7) k/uL Lymphocytes # (Manual) (1.0-4.8) k/uL ABG pH (7.35-7.45) ABG pCO2 (35-45) mmHg ABG pO2 (83-108) mmHg ABG HCO3 (21-25) mmol/L ABG Total CO2 (19-24) mmol/L ABG O2 Saturation (94-97) % Sodium (137-145) mmol/L Potassium (3.5-5.1) mmol/L Chloride (98-107) mmol/L Carbon Dioxide (22-30) mmol/L BUN (9-20) mg/dL Creatinine (0.66-1.25) mg/dL Glucose (74-99) mg/dL POC Glucose (mg/dL) (70-110) mg/dL Calcium (8.4-10.2) mg/dL AST (17-59) U/L Total Protein (6.3-8.2) g/dL Albumin (3.5-5.0) g/dL Procalcitonin 2.04 H (0.02-0.09) ng/mL Crossmatch See Detail 06/26/22 06/27/22 06/27/22 Range/Units 19:25 00:12 00:19 RBC (4.30-5.90) m/uL Hgb (13.0-17.5) gm/dL Hct (39.0-53.0) % RDW (11.5-15.5) % Plt Count (150-450) k/uL Neutrophils # (Manual) (1.3-7.7) k/uL Lymphocytes # (Manual) (1.0-4.8) k/uL ABG pH 7.29 L (7.35-7.45) ABG pCO2 16 L* 24 L (35-45) mmHg ABG pO2 82 L (83-108) mmHg ABG HCO3 8 L* 15 L (21-25) mmol/L ABG Total CO2 8 L 16 L (19-24) mmol/L ABG O2 Saturation 98.0 H 93.9 L (94-97) % Sodium (137-145) mmol/L Potassium (3.5-5.1) mmol/L Chloride (98-107) mmol/L Carbon Dioxide (22-30) mmol/L BUN (9-20) mg/dL Creatinine (0.66-1.25) mg/dL Glucose (74-99) mg/dL POC Glucose (mg/dL) 212 H (70-110) mg/dL Calcium (8.4-10.2) mg/dL AST (17-59) U/L Total Protein (6.3-8.2) g/dL Albumin (3.5-5.0) g/dL Procalcitonin (0.02-0.09) ng/mL Crossmatch 06/27/22 06/27/22 06/27/22 Range/Units 04:19 04:19 05:44 RBC 2.82 L (4.30-5.90) m/uL Hgb 9.0 L (13.0-17.5) gm/dL Hct 28.1 L (39.0-53.0) % RDW 16.8 H (11.5-15.5) % Plt Count 75 L (150-450) k/uL Neutrophils # (Manual) 9.10 H (1.3-7.7) k/uL Lymphocytes # (Manual) 0.19 L (1.0-4.8) k/uL ABG pH (7.35-7.45) ABG pCO2 (35-45) mmHg ABG pO2 (83-108) mmHg ABG HCO3 (21-25) mmol/L ABG Total CO2 (19-24) mmol/L ABG O2 Saturation (94-97) % Sodium 130 L (137-145) mmol/L Potassium 3.4 L (3.5-5.1) mmol/L Chloride 109 H (98-107) mmol/L Carbon Dioxide 15 L (22-30) mmol/L BUN 29 H (9-20) mg/dL Creatinine 0.42 L (0.66-1.25) mg/dL Glucose 205 H (74-99) mg/dL POC Glucose (mg/dL) 273 H (70-110) mg/dL Calcium 6.5 L (8.4-10.2) mg/dL AST 60 H (17-59) U/L Total Protein 3.9 L (6.3-8.2) g/dL Albumin 1.4 L (3.5-5.0) g/dL Procalcitonin (0.02-0.09) ng/mL Crossmatch Microbiology - Last 24 Hours (Table) 06/26/22 11:55 Gram Stain - Preliminary Pleural Fluid Body Fluid Culture - Preliminary 06/24/22 19:36 Blood Culture - Preliminary Blood No Growth after 48 hours 06/24/22 19:55 Blood Culture - Preliminary Blood No Growth after 48 hours 06/26/22 11:55 Anaerobic Culture - Preliminary Pleural Fluid - Imaging and Cardiology Chest x-ray: report reviewed, image reviewed (Morning) Assessment and Plan Assessment: 1. Left lower lobe pneumonia with complicated loculated parapneumonic effusion, possible empyema, status post left pleural pigtail placement by interventional radiology 2. Sepsis 4. Hypotension, likely due to sepsis 5. Status post fall from standing 6. COVID-19 virus infection 7. Shortness of breath, likely secondary to above 8. Chronic obstructive pulmonary disease 9. Malnutrition, cachectic 90 pound weight loss over one year period 10. Chronic ongoing tobacco dependence 11. Daily EtOH use, drinks 1 beer daily 12. Legally blind Plan: 1. We will instill Alteplase/dornase pleural instillation per his left pleural pigtail catheter today which will be his second treatment. 2. Continue to monitor daily chest x-rays. 3. Continue to encourage use of his incentive spirometry 10 times every hour while awake. 4. Continue antibiotics, currently on cefepime and vancomycin managed by infectious disease. 5. GI and DVT prophylaxis. 6. Norepinephrine drip management per pulmonary critical care management. D5W with sodium bicarbonate drip management per pulmonary critical care. 7. Continue to monitor pleural fluid culture results. 8. Reinforced the importance of risk modification including smoking cessation with the patient. 9. More recommendations to follow based on patient's clinical course. Time with Patient: Greater than 30
[2022-06-27] MEDS ORDERED: THIAMINE 100 MG/ML 2 ML VIAL IM STA (09:05)
[2022-06-27] MEDS ORDERED: LORazepam 1 MG/0.5 ML VIAL IV PRN ×2 (09:05)
[2022-06-27] MEDS: DEXTROSE 5% IN WATER 1,000 ML with SODIUM BICARB (1 MEQ/ML) 150 ML IV SCH (10:29)
--- NOTE | 2022-06-27 10:52 | P.PN ---
Subjective Progress Note Date: 06/27/22 Principal diagnosis: Sepsis, septic shock, left lower lobe pneumonia and left parapneumonic pleural effusion, possible empyema This is a 61-year-old -[place] male with history of COPD, neuropathy, legally blind, patient came in with just over a week history of productive cough, shortness of breath, and weakness. Apparently his tested positive for COVID-19 infection, and the patient has been feeling run down for the last 1 week at least. Patient was seen in the ER, and he was noted to have positive corneal COVID-19 infection patient was also noted to have an extensive infiltrate in the left lower lobe, and a parapneumonic pleural effusion. Ultrasound of the fluid showed loculation, patient was noted to be hypotensive in the ER, he required placement on norepinephrine. He was given fluid boluses, started on vancomycin and cefepime. Admitted to the ICU, and I was asked to see him on consultation. After evaluating the patient and reviewing the ultrasound of the chest, I recommended interventional radiology evaluation for possible pigtail catheter placement in his left sided loculated pleural effusion. Patient may have a picture of empyema in addition to his pneumonia, patient may have underlying COVID-19 infection. In the meantime the patient is on room air, but he is requiring a small dose of norepinephrine. Received multiple fluid boluses while in the ER. Patient will be seen by interventional radiology, infectious disease, and he will be seen by thoracic surgery on consultation. Patient remains in the ICU, fell off the bed, sustained some left-sided and elbow injuries, but no fractures, x-rays were negative. Patient still on no repinephrine at 0.02 mcg/m remains on IV fluid at 1 25 mL/h remains on antibiotics in the form of cefepime and vancomycin. Hemoglobin dropped today to 6.2 and he will be receiving a unit of packed RBCs, patient was supposed to have a pigtail catheter placement in his loculated pleural effusion yesterday, he refused but he seems to be agreeable to have it done today. Patient is about the same compared to yesterday, nonetheless he is on room air and O2 sats is 97% on room air. WBC count is 12.2 hemoglobin is 6.2 electrolytes are normal renal profile is normal. Blood cultures are negative so far. Pro-calcitonin is 2.6. Today it is 2.04. Patient apparently pulled out his central line yesterday, and I believe the patient will need a PICC line for IV antibiotics may be long-term. Hence we'll arrange for PICC line as well as for pigtail catheter placement today. Reevaluated today 06/27/22, patient remains in the ICU, he developed extreme agitation yesterday, and he was asking for a bear. Patient was pulling all his lines, he even pulled his triple-lumen catheter and his PICC line, now he has mostly peripheral lines in place, he required Precedex yesterday, however he became quite bradycardic, hence did not tolerate Precedex. Patient was placed on the CIWA protocol using Ativan, and apparently at one point early this morning he was almost unresponsive to stimuli. I was notified about the patient, and I recommended immediate intubation of the patient. However according to the nurses before intubation the patient became more arousable and did not require intubation. Today the patient is confused, a bit restless, he is on 3 L nasal cannula, he is also on sodium bicarb drip at 75 mL/h he is also on D5 4 5 at 50 mL per hour he was briefly on norepinephrine 0.02 mcg/m and I have discontinued norepinephrine this morning. Antibiotics gongora patient is on vancomycin and cefepime. Yesterday he had a pigtail catheter placed in his complicated pleural effusion and has been receiving alteplase through the pigtail catheter. ABG today showed a pO2 of 82 pCO2 of 24 pH of 7.42. Patient has a non-anion gap metabolic acidosis. Chloride is 109 renal profile is normal potassium is 3.4. Patient remains in the CIWA protocol. And at this point he chest x-ray is showing worsening of his interstitial infiltrates/COVID-19 pneumonia findings Objective - Vital Signs Vital signs: Vital Signs Temp 97.8 F 06/27/22 08:00 Pulse 62 06/27/22 09:00 Resp 19 06/27/22 09:00 BP 99/73 06/27/22 09:00 Pulse Ox 98 06/27/22 09:00 FiO2 21 06/25/22 03:07 Intake & Output 06/26/22 06/27/22 06/27/22 18:59 06:59 18:59 Intake Total 2318.656 1576.530 325 Output Total 665 455 90 Balance 1184.766 0270.530 235 Weight 57.7 kg 58.7 kg Intake: IV 1500 1425 325 Dextrose 5% in Water 1, 750 225 000 ml @ 75 mls/hr IV . [id number] FELICIA with Sodium Bicarb (1 Meq/ml) 150 ml Rx#:[id number] Dextrose 5%-0.45% NaCl 1, 500 100 000 ml @ 25 mls/hr IV . Q24H FELICIA Rx#:[id number] Norepinephrine 4 mg In 50 Sodium Chloride 0.9% 250 ml @ 0.03 MCG/KG/MIN 6. 012 mls/hr IV .Q24H FELICIA Rx#:[id number] Sodium Chloride 0.9% 1, 1500 125 000 ml @ 125 mls/hr IV . Q8H FELICIA Rx#:[id number] Intake, IV Titration 8.656 151.530 Amount Dexmedetomidine/0.9% NaCl 8.656 53.735 (Pmx) 400 mcg In Empty Bag 1 bag @ 1.2 MCG/KG/HR 17.31 mls/hr IV .Q5H47M FELICIA Rx#:[id number] Norepinephrine 4 mg In 97.795 Sodium Chloride 0.9% 250 ml @ 0.03 MCG/KG/MIN 6. 012 mls/hr IV .Q24H FELICIA Rx#:[id number] Oral 500 Blood Product 310 Rc As-1 Unit 310 [id number] Output: Chest Tube Drainage 110 left posterior chest 110 Drainage 400 120 Left Posterior Chest 400 120 Urine 265 225 90 Other: Voiding Method Incontinent Indwelling Catheter Indwelling Catheter # Voids 1 - Exam General: 61-year-old male Cachectic looking frail and chronically ill, on 3 L nasal cannula, looks confused, a bit restless. HEAD: Atraumatic, normocephalic.. EYES: PERRLA, EOMI, conjunctiva normal, no discharge. ENT: Moist mucous membranes, throat is clear. RESPIRATORY: Crackles at the left base, no rhonchi no wheezes. Left-sided pigtail catheter is noted and are sanguinous effusion noted C/V: Distant S1 and S2, no S3 gallop. ABD: Soft nontender no megaly no rebound no guarding EXT: No clubbing edema or cyanosis SKIN: Evidence of significant vitiligo involving the back and the chest. NEURO: Intermittent confusion, legally blind. Psychiatric: Restless and agitated but better with sedation - Labs CBC & Chem 7: 06/27/22 04:19 06/27/22 04:19 Labs: Abnormal Lab Results - Last 24 Hours (Table) 06/26/22 06/26/22 06/27/22 Range/Units 12:50 19:25 00:12 RBC 2.91 L (4.30-5.90) m/uL Hgb 9.2 L D (13.0-17.5) gm/dL Hct 28.1 L (39.0-53.0) % RDW 16.3 H (11.5-15.5) % Plt Count 107 L (150-450) k/uL Neutrophils # (Manual) (1.3-7.7) k/uL Lymphocytes # (Manual) (1.0-4.8) k/uL ABG pH 7.29 L (7.35-7.45) ABG pCO2 16 L* (35-45) mmHg ABG pO2 (83-108) mmHg ABG HCO3 8 L* (21-25) mmol/L ABG Total CO2 8 L (19-24) mmol/L ABG O2 Saturation 98.0 H (94-97) % Sodium (137-145) mmol/L Potassium (3.5-5.1) mmol/L Chloride (98-107) mmol/L Carbon Dioxide (22-30) mmol/L BUN (9-20) mg/dL Creatinine (0.66-1.25) mg/dL Glucose (74-99) mg/dL POC Glucose (mg/dL) 212 H (70-110) mg/dL Calcium (8.4-10.2) mg/dL AST (17-59) U/L Total Protein (6.3-8.2) g/dL Albumin (3.5-5.0) g/dL 06/27/22 06/27/22 06/27/22 Range/Units 00:19 04:19 04:19 RBC 2.82 L (4.30-5.90) m/uL Hgb 9.0 L (13.0-17.5) gm/dL Hct 28.1 L (39.0-53.0) % RDW 16.8 H (11.5-15.5) % Plt Count 75 L (150-450) k/uL Neutrophils # (Manual) 9.10 H (1.3-7.7) k/uL Lymphocytes # (Manual) 0.19 L (1.0-4.8) k/uL ABG pH (7.35-7.45) ABG pCO2 24 L (35-45) mmHg ABG pO2 82 L (83-108) mmHg ABG HCO3 15 L (21-25) mmol/L ABG Total CO2 16 L (19-24) mmol/L ABG O2 Saturation 93.9 L (94-97) % Sodium 130 L (137-145) mmol/L Potassium 3.4 L (3.5-5.1) mmol/L Chloride 109 H (98-107) mmol/L Carbon Dioxide 15 L (22-30) mmol/L BUN 29 H (9-20) mg/dL Creatinine 0.42 L (0.66-1.25) mg/dL Glucose 205 H (74-99) mg/dL POC Glucose (mg/dL) (70-110) mg/dL Calcium 6.5 L (8.4-10.2) mg/dL AST 60 H (17-59) U/L Total Protein 3.9 L (6.3-8.2) g/dL Albumin 1.4 L (3.5-5.0) g/dL 06/27/22 Range/Units 05:44 RBC (4.30-5.90) m/uL Hgb (13.0-17.5) gm/dL Hct (39.0-53.0) % RDW (11.5-15.5) % Plt Count (150-450) k/uL Neutrophils # (Manual) (1.3-7.7) k/uL Lymphocytes # (Manual) (1.0-4.8) k/uL ABG pH (7.35-7.45) ABG pCO2 (35-45) mmHg ABG pO2 (83-108) mmHg ABG HCO3 (21-25) mmol/L ABG Total CO2 (19-24) mmol/L ABG O2 Saturation (94-97) % Sodium (137-145) mmol/L Potassium (3.5-5.1) mmol/L Chloride (98-107) mmol/L Carbon Dioxide (22-30) mmol/L BUN (9-20) mg/dL Creatinine (0.66-1.25) mg/dL Glucose (74-99) mg/dL POC Glucose (mg/dL) 273 H (70-110) mg/dL Calcium (8.4-10.2) mg/dL AST (17-59) U/L Total Protein (6.3-8.2) g/dL Albumin (3.5-5.0) g/dL Microbiology - Last 24 Hours (Table) 06/26/22 11:55 Gram Stain - Preliminary Pleural Fluid Body Fluid Culture - Preliminary 06/24/22 19:36 Blood Culture - Preliminary Blood No Growth after 48 hours 06/24/22 19:55 Blood Culture - Preliminary Blood No Growth after 48 hours 06/26/22 11:55 Anaerobic Culture - Preliminary Pleural Fluid Assessment and Plan Assessment: Impression: Sepsis and septic shock, likely secondary to left lower lobe pneumonia and complicated pleural effusion requiring pigtail catheter placement, labs are pending on the pleural effusion. Left lower lobe pneumonia with complicated parapneumonic effusion, possible empyema, possible hemothorax in the left pleural space considering the patient had previous history of fall and may be trauma to the chest. COVID-19 infection History of underlying COPD Hypotension secondary to sepsis and septic shock Acute hypoxic respiratory failure secondary to COVID-19 infection and underlying superimposed pneumonia with complicated left-sided parapneumonic effusion. Recommendation: Continue to monitor in the ICU Continue antibiotics empirically including cefepime and vancomycin Continue bronchodilators Continue to monitor output from the pigtail catheter and continue alteplase. GI and DVT prophylaxis Discontinue norepinephrine Continues CIWA protocol. Patient is critically ill. Prognosis is guarded. Critical care time is over 30 minutes Time with Patient: Greater than 30
[2022-06-27 11:33] LABS: Glucose,Whole Blood 230 mg/dL (70-110)
[2022-06-27] MEDS: LORazepam 1 MG/0.5 ML VIAL IV PRN ×2 (12:03→17:50)
[2022-06-27] MEDS ORDERED: DEXTROSE 50% SYRINGE 50 ML IVP PRN ×3 (12:26→12:41)
[2022-06-27] MEDS ORDERED: INSULIN ASPART (NovoLOG) 100 UNIT/ML VIAL SQ SCH ×2 (12:30→15:30)
[2022-06-27] MEDS: THIAMINE 100 MG TAB PO SCH (15:26)
[2022-06-27 17:25] LABS: Glucose,Whole Blood 100 mg/dL (70-110)
[2022-06-27] MEDS: INSULIN ASPART (NovoLOG) 100 UNIT/ML VIAL SQ SCH (17:49)
[2022-06-27] MEDS ORDERED: FUROSEMIDE 10 MG/ML 4 ML VIAL IV STA (18:24)
[2022-06-27] MEDS ORDERED: AMIODARONE 360 MG in DEXTROSE 5% IN WATER 200 ML IV ONE ×2 (18:25)
[2022-06-27] MEDS ORDERED: DEXTROSE 5% IN WATER 100 ML with AMIODARONE 150 MG IV ONE (18:25)
[2022-06-27] MEDS ORDERED: HEPARIN SODIUM 1,000 UN/ML (10ML VL) IV ONE (18:26)
[2022-06-27] MEDS ORDERED: HEPARIN SODIUM 1,000 UN/ML (10ML VL) IV PRN (18:26)
[2022-06-27] MEDS ORDERED: HEPARIN SOD,PORK IN 0.45% NACL 25,000 UNIT in 0.45% NACL 1 250ML.BAG IV SCH (18:30)
[2022-06-27] MEDS ORDERED: ENOXAPARIN 80 MG/0.8 ML SYRINGE SQ STA (18:53)
--- NOTE | 2022-06-27 19:07 | XR ---
EXAMINATION TYPE: XR chest 1V portable DATE OF EXAM: 06/27/2022 COMPARISON: Today HISTORY: Respiratory failure TECHNIQUE: Single view FINDINGS: Endotracheal tube is 8 cm from the rupal. There is airspace consolidation in the left lowe r lobe. There are chest leads. There is pigtail drainage catheter over the left lung base. There is c oarsening of interstitial markings. IMPRESSION: Pulmonary edema is slightly improved compared to exam this morning. There is left lower l obe pneumonia without much change. Endotracheal tube is high.
[2022-06-27 20:09] LABS: ABG Base Excess -6.6 mmol/L; ABG HCO3 18 mmol/L (21-25); ABG PCO2 29 mmHg (35-45); ABG PO2 >400 mmHg (83-108); ABG TCO2 19 mmol/L (19-24); Allen Test Performed? Yes
[2022-06-27] MEDS: DEXTROSE 5%-0.45% NACL 1,000 ML IV SCH (20:37)
[2022-06-27] MEDS: CHLORHEXIDINE GLUCONATE 15 ML CUP MUCOUS MEM SCH (20:37)
--- NOTE | 2022-06-27 20:50 | XR ---
EXAMINATION TYPE: XR chest 1V portable DATE OF EXAM: 06/27/2022 COMPARISON: To the HISTORY: Tube placement TECHNIQUE: FINDINGS: There is nasogastric tube and the tip is in the distal esophagus. The endotracheal tube is 7 cm from the rupal. There is airspace consolidation left lower lobe. There is pigtail drainage cath eter left lung base. There is some diffuse infiltrate in the right lung. IMPRESSION: Gastric tube is in the distal esophagus. Pulmonary infiltrates are unchanged.
[2022-06-28 00:15] LABS: Glucose,Whole Blood 170 mg/dL (70-110)
[2022-06-28] MEDS: INSULIN ASPART (NovoLOG) 100 UNIT/ML VIAL SQ SCH ×4 (00:21→17:29)
[2022-06-28] MEDS: CEFEPIME 2 GM in SODIUM CHLORIDE 0.9% 100 ML IVPB SCH ×3 (00:21→16:53)
[2022-06-28] MEDS ORDERED: AMIODARONE 450 MG in DEXTROSE 5% IN WATER 250 ML IV SCH ×2 (00:30)
[2022-06-28] MEDS: NOREPINEPHRINE 4 MG in SODIUM CHLORIDE 0.9% 250 ML IV SCH ×3 (01:32→08:00)
[2022-06-28] MEDS: DEXTROSE 5% IN WATER 1,000 ML with SODIUM BICARB (1 MEQ/ML) 150 ML IV SCH ×2 (03:15→16:51)
[2022-06-28] MEDS: ALBUTEROL HFA INHALER INHALATION SCH ×5 (03:33→19:43)
[2022-06-28] MEDS: DEXMEDETOMIDINE/0.9% NACL(PMX) 400 MCG in EMPTY BAG 1 BAG IV SCH ×4 (04:29→22:49)
[2022-06-28 05:36] LABS: Glucose,Whole Blood 164 mg/dL (70-110)
[2022-06-28] MEDS: VANCOMYCIN 1,000 MG in SODIUM CHLORIDE 0.9% 250 ML IVPB SCH ×2 (05:49→16:54)
[2022-06-28 06:16] LABS: ABG Base Excess -3.6 mmol/L; ABG HCO3 20 mmol/L (21-25); ABG PCO2 27 mmHg (35-45); ABG PH 7.48 (7.35-7.45); ABG PO2 213 mmHg (83-108); ABG TCO2 21 mmol/L (19-24)
[2022-06-28 06:17] LABS: Anisocytosis Slight; HCT 27.1 % (39.0-53.0); HGB 9.1 gm/dL (13.0-17.5); MCH 31.1 pg (25.0-35.0); MCHC 33.5 g/dL (31.0-37.0); Mean Platelet Volume 11.2; Poikilocytosis Slight; RBC 2.92 m/uL (4.30-5.90); RDW 16.9 % (11.5-15.5)
[2022-06-28 06:22] LABS: Allen Test Performed? No
[2022-06-28 06:29] LABS: ALT 39 U/L (4-49); AST 42 U/L (17-59); African American GFR (CKD) >90 (>60 ml/min/1.73 sqM); Albumin 1.4 g/dL (3.5-5.0); Alkaline Phosphatase 60 U/L (38-126); Anion Gap 5 mmol/L; Blood Urea Nitrogen 25 mg/dL (9-20); Carbon Dioxide 19 mmol/L (22-30); Chloride 105 mmol/L (98-107); Glucose 128 mg/dL (74-99); Magnesium 1.8 mg/dL (1.6-2.3); Non-African American GFR(CKD) >90 (>60 ml/min/1.73 sqM); Potassium 3.2 mmol/L (3.5-5.1); Sodium 129 mmol/L (137-145); Total Bilirubin 1.3 mg/dL (0.2-1.3); Total Protein 3.7 g/dL (6.3-8.2)
[2022-06-28 06:49] LABS: MCV 92.9 fL (80.0-100.0); Platelet Count 79 k/uL (150-450)
[2022-06-28 06:56] LABS: Calcium 5.9 mg/dL (8.4-10.2)
--- NOTE | 2022-06-28 07:04 | XR ---
EXAMINATION TYPE: XR chest 1V portable DATE OF EXAM: 06/28/2022 5:42 AM COMPARISON: Chest radiograph from one day prior. TECHNIQUE: XR chest 1V portable Portable AP radiograph of the chest. CLINICAL INDICATION:Male, 61 years old with history of Tube placement; FINDINGS: Lungs/Pleura: Similar right mid upper lung and lower lung and left lower lung airspace opacities. The re is no evidence of pleural effusion, focal consolidation, or pneumothorax. Pulmonary vascularity: Unremarkable. Heart/mediastinum: Cardiomediastinal silhouette is unremarkable. Musculoskeletal: No acute osseous pathology. Lines/Tubes: Endotracheal tube with distal tip 6.9 cm above the rupal Nasogastric tube with side-port projecting over the distal esophagus. Left thoracotomy tube is present without evidence of pneumothorax. IMPRESSION: 1. Nasogastric tube and side-port projecting over the esophagus. Consider advancement of at least 14 cm for optimal placement. 2. Endotracheal tube in appropriate position. 3. Left Thoracotomy tube in stable position without evidence of pneumothorax.
[2022-06-28] MEDS ORDERED: CALCIUM GLUCONATE IN NACL 2 GM in SALINE 1 100ML.BAG IVPB ONE (07:34)
[2022-06-28] MEDS: POTASSIUM BICARBONATE/CIT AC 20 MEQ TABLET.EFF NG-TUBE SCH ×2 (07:35→09:31)
[2022-06-28] MEDS: CHLORHEXIDINE GLUCONATE 15 ML CUP MUCOUS MEM SCH ×2 (07:35→22:49)
[2022-06-28] MEDS: CHOLECALCIFEROL 25 MCG (1000 IU) TABLET PO SCH (07:36)
[2022-06-28] MEDS: MAGNESIUM SULFATE-D5W PMX 1 GM in DEXTROSE/WATER 1 100ML.BAG IVPB SCH ×2 (07:36→08:56)
[2022-06-28] MEDS: FAMOTIDINE 20 MG TAB PO SCH ×2 (07:36→22:49)
[2022-06-28] MEDS: DEXAMETHASONE SOD PHOSPHATE 10 MG/ML 1 ML VIAL IVP SCH (07:36)
[2022-06-28] MEDS: ZINC SULFATE 220 MG CAP PO SCH (07:36)
[2022-06-28] MEDS: ASCORBIC ACID 500 MG TAB PO SCH (07:36)
[2022-06-28] MEDS: SYMBICORT 160-4.5 MCG INHALER INHALATION SCH ×2 (08:13→19:43)
[2022-06-28] MEDS: TIOTROPIUM 2.5 MCG INHALER INHALATION SCH (08:13)
[2022-06-28 09:16] LABS: Band Neutrophils % 2 %; Lymphocytes # (M) 1.85 k/uL (1.0-4.8); Metamyelocytes # (M) 0.14 k/uL (0); Metamyelocytes % 1 %; Monocytes # (M) 0.85 k/uL (0-1.0); Myelocytes # (M) 0.14 k/uL (0); Myelocytes % 1 %; Neutrophils % (M) 79 %; Nucleated Red Blood Cells 7 /100 WBC (0-0); Total Cells Counted 200; WBC 14.2 k/uL (3.8-10.6)
[2022-06-28 09:19] LABS: Target Cells Present
[2022-06-28] MEDS ORDERED: DORNASE ALFA 5 MG in SODIUM CHLORIDE 0.9% 50 ML IRRIGATION ONE (09:20)
[2022-06-28] MEDS ORDERED: ALTEPLASE 10 MG in SODIUM CHLORIDE 0.9% 50 ML IRRIGATION ONE (09:20)
[2022-06-28] MEDS ORDERED: SODIUM CHLORIDE 0.9% 1,000 ML IV ONE ×2 (09:21→13:09)
[2022-06-28 09:22] LABS: Tear Drop Cells Present
--- NOTE | 2022-06-28 09:35 | P.PN ---
Subjective Progress Note Date: 06/28/22 Principal diagnosis: Left lower lobe pneumonia with complicated loculated parapneumonic effusion, possible empyema. Past medical history significant for COPD, neuropathy, is legally blind, a 90 pound weight loss over one year and chronic ongoing tobacco dependence and daily EtOH use of drinking 1 beer per day. Status post day #3 left chest pleural pigtail catheter placement by interventional radiology. The patient was seen and examined in follow-up today 06/28/2022 at his bedside in the intensive care unit. According to the patient's bedside nurse, the patient went into acute respiratory distress last night requiring intubation with mechanical ventilator support. He remains intubated and sedated on Diprivan drip at 20 mcg/kg/m. Current mechanical ventilator settings are assist control 20 TV 450, FiO2 30% and a PEEP of 5 and oxygen saturations are 99% on current vent settings. The patient also had an episode of paroxysmal atrial fibrillation and was started on amiodarone per protocol. Bedside telemetry is currently showing normal sinus rhythm heart rate 77 BPM. Norepinephrine drip is infusing at 0.3 mcg/kg/m for blood pressure support. Left pleural pigtail catheter remains in place to low continuous wall suction -20 cm H2O. No air leak is present. Draining thin serosanguineous drainage with 590 mL output in the last 24 hours. He was given a dose of alteplase/dornase pleural instillation yesterday through his left chest pigtail catheter which was his second total dose. Laboratory results this morning show a WBC count of 14.2, hemoglobin 9.1, hematocrit 27.1, platelet 79, sodium 129, potassium 3.2, CO2 19, BUN 25, creatinine 0.55, glucose 164, calcium 5.9, magnesium 1.8 and albumin 1.4. Objective - Vital Signs Vital signs: Vital Signs Temp 95.8 F L 06/28/22 00:00 Pulse 82 06/28/22 07:00 Resp 28 H 06/28/22 07:00 BP 88/56 06/27/22 19:00 Pulse Ox 99 06/28/22 07:00 FiO2 50 06/28/22 08:00 Intake & Output 06/27/22 06/28/22 06/28/22 18:59 06:59 18:59 Intake Total 8525.196 6135.571 329.051 Output Total 285 180 10 Balance 217.400 0469.571 319.051 Weight 60.6 kg Intake: IV 1225 1200 100 Dextrose 5% in Water 1, 900 900 75 000 ml @ 75 mls/hr IV . [id number] FELICIA with Sodium Bicarb (1 Meq/ml) 150 ml Rx#:[id number] Dextrose 5%-0.45% NaCl 1, 325 300 25 000 ml @ 25 mls/hr IV . Q24H FELICIA Rx#:[id number] Intake, IV Titration .979 967.571 229.051 Amount Norepinephrine 4 mg In 22.979 655.261 200.405 Sodium Chloride 0.9% 250 ml @ 0.03 MCG/KG/MIN 6. 012 mls/hr IV .Q24H FELICIA Rx#:[id number] Vancomycin 750 mg In 250 Sodium Chloride 0.9% 250 ml @ 125 mls/hr IVPB Q12H FELICIA Rx#:[id number] propofoL 1,000 mg In 62.310 28.646 Empty Bag 1 bag @ 15 MCG/ KG/MIN 5.283 mls/hr IV . [id number] FELICIA Rx#:[id number] Output: Urine 285 180 10 Other: Voiding Method Indwelling Catheter Indwelling Catheter Indwelling Catheter ABP, PAP, CO, CI - Last Documented Arterial Blood Pressure 94/71 - Exam CONSTITUTIONAL: Laying in bed, in the intensive care unit, is sedated, intubated with mechanical ventilator support. Not following any simple verbal commands at this time. Cachectic. HEENT: Neck is supple, no JVD, no lymphadenopathy. RESPIRATORY: Lungs sounds essentially clear throughout, diminished to his bilateral bases, left greater than right. Respirations are symmetrical and nonlabored with mechanical ventilator support. Currently mechanical ventilator settings are assist control 20, TV 450, FiO2 30% and PEEP of 5. Oxygen sa turations are 99% on current mechanical ventilator settings. CARDIOVASCULAR: Regular rhythm and rate. S1 and S2 present, negative for S3, gallop or murmur. Palpable peripheral pulses bilaterally, no edema to his bilateral lower extremities. Bedside telemetry showing normal sinus rhythm heart rate 77 BPM. GASTROINTESTINAL: Abdomen soft, nontender, nondistended. Active bowel sounds present 4 quadrants. No guarding or rigidity. OG tube in place. GENITOURINARY: Victor catheter in place for accurate I's and O's. INTEGUMENTARY: Skin is warm and dry with no evidence of clubbing or cyanosis. Dressing is clean, dry and intact to left chest pigtail catheter. NEUROLOGIC: Unable to accurately assess this a.m. as the patient sedated on propofol drip. Patient is legally blind. MUSKULOSKELETAL: Able to move all extremities, strength equal bilaterally. PSYCHIATRIC: Unable to accurately assess this a.m. as the patient is sedated on propofol drip. INVASIVE LINES AND TUBES: Left chest pigtail catheter in place to low continuous wall suction -20 cm H2O. No air leak is present. Draining thin serosanguineous drainage with 590 mL output in the last 24 hours. - Allied health notes Allied health notes reviewed: nursing - Labs CBC & Chem 7: 06/28/22 05:35 06/28/22 05:35 Labs: Abnormal Lab Results - Last 24 Hours (Table) 06/27/22 06/27/22 06/28/22 Range/Units 11:31 20:07 00:13 WBC (3.8-10.6) k/uL RBC (4.30-5.90) m/uL Hgb (13.0-17.5) gm/dL Hct (39.0-53.0) % RDW (11.5-15.5) % Plt Count (150-450) k/uL Neutrophils # (Manual) (1.3-7.7) k/uL Metamyelocytes # (Man) (0) k/uL Myelocytes # (Manual) (0) k/uL Nucleated RBCs (0-0) /100 WBC ABG pH (7.35-7.45) ABG pCO2 29 L (35-45) mmHg ABG pO2 >400 H (83-108) mmHg ABG HCO3 18 L (21-25) mmol/L ABG O2 Saturation 100.0 H (94-97) % Sodium (137-145) mmol/L Potassium (3.5-5.1) mmol/L Carbon Dioxide (22-30) mmol/L BUN (9-20) mg/dL Creatinine (0.66-1.25) mg/dL Glucose (74-99) mg/dL POC Glucose (mg/dL) 230 H 170 H (70-110) mg/dL Calcium (8.4-10.2) mg/dL Total Protein (6.3-8.2) g/dL Albumin (3.5-5.0) g/dL 06/28/22 06/28/22 06/28/22 Range/Units 05:17 05:34 05:35 WBC (3.8-10.6) k/uL RBC (4.30-5.90) m/uL Hgb (13.0-17.5) gm/dL Hct (39.0-53.0) % RDW (11.5-15.5) % Plt Count (150-450) k/uL Neutrophils # (Manual) (1.3-7.7) k/uL Metamyelocytes # (Man) (0) k/uL Myelocytes # (Manual) (0) k/uL Nucleated RBCs (0-0) /100 WBC ABG pH 7.48 H (7.35-7.45) ABG pCO2 27 L (35-45) mmHg ABG pO2 213 H (83-108) mmHg ABG HCO3 20 L (21-25) mmol/L ABG O2 Saturation 100.0 H (94-97) % Sodium 129 L (137-145) mmol/L Potassium 3.2 L (3.5-5.1) mmol/L Carbon Dioxide 19 L (22-30) mmol/L BUN 25 H (9-20) mg/dL Creatinine 0.55 L (0.66-1.25) mg/dL Glucose 128 H (74-99) mg/dL POC Glucose (mg/dL) 164 H (70-110) mg/dL Calcium 5.9 L* (8.4-10.2) mg/dL Total Protein 3.7 L (6.3-8.2) g/dL Albumin 1.4 L (3.5-5.0) g/dL 06/28/22 Range/Units 05:35 WBC 14.2 H (3.8-10.6) k/uL RBC 2.92 L (4.30-5.90) m/uL Hgb 9.1 L (13.0-17.5) gm/dL Hct 27.1 L (39.0-53.0) % RDW 16.9 H (11.5-15.5) % Plt Count 79 L (150-450) k/uL Neutrophils # (Manual) 11.50 H (1.3-7.7) k/uL Metamyelocytes # (Man) 0.14 H (0) k/uL Myelocytes # (Manual) 0.14 H (0) k/uL Nucleated RBCs 7 H (0-0) /100 WBC ABG pH (7.35-7.45) ABG pCO2 (35-45) mmHg ABG pO2 (83-108) mmHg ABG HCO3 (21-25) mmol/L ABG O2 Saturation (94-97) % Sodium (137-145) mmol/L Potassium (3.5-5.1) mmol/L Carbon Dioxide (22-30) mmol/L BUN (9-20) mg/dL Creatinine (0.66-1.25) mg/dL Glucose (74-99) mg/dL POC Glucose (mg/dL) (70-110) mg/dL Calcium (8.4-10.2) mg/dL Total Protein (6.3-8.2) g/dL Albumin (3.5-5.0) g/dL Microbiology - Last 24 Hours (Table) 06/24/22 19:36 Blood Culture - Preliminary Blood No Growth after 72 hours 06/24/22 19:55 Blood Culture - Preliminary Blood No Growth after 72 hours 06/26/22 11:55 Gram Stain - Preliminary Pleural Fluid Body Fluid Culture - Preliminary - Imaging and Cardiology Chest x-ray: report reviewed, image reviewed Assessment and Plan Assessment: 1. Left lower lobe pneumonia with complicated loculated parapneumonic effusion, possible empyema, status post left pleural pigtail placement by interventional radiology 2. Sepsis 4. Acute hypoxic respiratory failure, requiring intubation with mechanical ventilator support 5. Paroxysmal atrial fibrillation, currently in normal sinus rhythm 6. Hypotension, likely due to sepsis 7. Status post fall from standing 8. COVID-19 virus infection 9. Shortness of breath, likely secondary to above 10. Chronic obstructive pulmonary disease 11. Malnutrition, cachectic 90 pound weight loss over one year period 12. Chronic ongoing tobacco dependence 13. Daily EtOH use, drinks 1 beer daily 14. Legally blind Plan: 1. We will instill Alteplase/dornase pleural instillation per his left pleural pigtail catheter today which will be his third treatment. 2. Continue to monitor daily chest x-rays. 3. Mechanical ventilator management and propofol drip per pulmonary critical care recommendations. 4. Continue antibiotics, currently on cefepime and vancomycin managed by i nfectious disease. 5. GI and DVT prophylaxis. 6. Norepinephrine drip management per pulmonary critical care management. D5W with sodium bicarbonate drip management per pulmonary critical care. 7. Continue to monitor pleural fluid culture results. Pleural fluid cultures show no growth after 24 hours. 8. More recommendations to follow based on patient's clinical course. Time with Patient: Greater than 30
[2022-06-28] MEDS: ENOXAPARIN 40 MG/0.4 ML SYRINGE SQ SCH (09:43)
--- NOTE | 2022-06-28 10:51 | XR ---
EXAMINATION TYPE: XR chest 1V portable DATE OF EXAM: 06/28/2022 10:33 AM COMPARISON: Chest radiographs from earlier same day TECHNIQUE: XR chest 1V portable Frontal and lateral views of the chest. CLINICAL INDICATION:Male, 61 years old with history of lt subclavian line placement; FINDINGS: Lungs/Pleura: Similar multifocal airspace opacities. No evidence of pneumothorax or pleural effusion. Pulmonary vascularity: Unremarkable. Heart/mediastinum: Cardiomediastinal silhouette is unremarkable. Musculoskeletal: No acute osseous pathology. Lines/Tubes: Endotracheal tube with distal tip 9.4 cm above the rupal Nasogastric tube with its distal tip and side-port projecting under the diaphragm. Left central venous catheter with distal tip at the superior vena cava. IMPRESSION: 1. Endotracheal tube in high position consider advancement of 6 cm for optimal placement. 2. Nasogastric tube now in appropriate position. 3. Similar scattered airspace opacities.
[2022-06-28 11:33] LABS: Glucose,Whole Blood 174 mg/dL (70-110)
--- NOTE | 2022-06-28 11:45 | P.PN ---
Subjective Progress Note Date: 06/28/22 Principal diagnosis: Sepsis, septic shock, left lower lobe pneumonia and left parapneumonic pleural effusion, possible empyema This is a 61-year-old -[place] male with history of COPD, neuropathy, legally blind, patient came in with just over a week history of productive cough, shortness of breath, and weakness. Apparently his tested positive for COVID-19 infection, and the patient has been feeling run down for the last 1 week at least. Patient was seen in the ER, and he was noted to have positive corneal COVID-19 infection patient was also noted to have an extensive infiltrate in the left lower lobe, and a parapneumonic pleural effusion. Ultrasound of the fluid showed loculation, patient was noted to be hypotensive in the ER, he required placement on norepinephrine. He was given fluid boluses, started on vancomycin and cefepime. Admitted to the ICU, and I was asked to see him on consultation. After evaluating the patient and reviewing the ultrasound of the chest, I recommended interventional radiology evaluation for possible pigtail catheter placement in his left sided loculated pleural effusion. Patient may have a picture of empyema in addition to his pneumonia, patient may have underlying COVID-19 infection. In the meantime the patient is on room air, but he is requiring a small dose of norepinephrine. Received multiple fluid boluses while in the ER. Patient will be seen by interventional radiology, infectious disease, and he will be seen by thoracic surgery on consultation. Patient remains in the ICU, fell off the bed, sustained some left-sided and elbow injuries, but no fractures, x-rays were negative. Patient still on no repinephrine at 0.02 mcg/m remains on IV fluid at 1 25 mL/h remains on antibiotics in the form of cefepime and vancomycin. Hemoglobin dropped today to 6.2 and he will be receiving a unit of packed RBCs, patient was supposed to have a pigtail catheter placement in his loculated pleural effusion yesterday, he refused but he seems to be agreeable to have it done today. Patient is about the same compared to yesterday, nonetheless he is on room air and O2 sats is 97% on room air. WBC count is 12.2 hemoglobin is 6.2 electrolytes are normal renal profile is normal. Blood cultures are negative so far. Pro-calcitonin is 2.6. Today it is 2.04. Patient apparently pulled out his central line yesterday, and I believe the patient will need a PICC line for IV antibiotics may be long-term. Hence we'll arrange for PICC line as well as for pigtail catheter placement today. Reevaluated today 06/27/22, patient remains in the ICU, he developed extreme agitation yesterday, and he was asking for a beer. Patient was pulling all his lines, he even pulled his triple-lumen catheter and his PICC line, now he has mostly peripheral lines in place, he required Precedex yesterday, however he became quite bradycardic, hence did not tolerate Precedex. Patient was placed on the CIWA protocol using Ativan, and apparently at one point early this morning he was almost unresponsive to stimuli. I was notified about the patient, and I recommended immediate intubation of the patient. However according to the nurses before intubation the patient became more arousable and did not require intubation. Today the patient is confused, a bit restless, he is on 3 L nasal cannula, he is also on sodium bicarb drip at 75 mL/h he is also on D5 4 5 at 50 mL per hour he was briefly on norepinephrine 0.02 mcg/m and I have discontinued norepinephrine this morning. Antibiotics gongora patient is on vancomycin and cefepime. Yesterday he had a pigtail catheter placed in his complicated pleural effusion and has been receiving alteplase through the pigtail catheter. ABG today showed a pO2 of 82 pCO2 of 24 pH of 7.42. Patient has a non-anion gap metabolic acidosis. Chloride is 109 renal profile is normal potassium is 3.4. Patient remains in the CIWA protocol. And at this point he chest x-ray is showing worsening of his interstitial infiltrates/COVID-19 pneumonia findings Reevaluated today on 06/28/22, patient remains in the ICU, yesterday the patient's clinical status became worse, he required high flow oxygen, patient remained hypoxic, he was also hypotensive, he went into atrial fibrillation with RVR, required intubation and required amiodarone drip for his atrial fibrillation patient is now back in sinus rhythm. He is still on assist control rate of 20, volume 450 FiO2 is 30%, and PEEP of 5. ABG showed a pO2 of 213 pCO2 27 pH of 7.48 and this was on 50% however the FiO2 was cut down to 30%. CBC showed evidence of leukocytosis with WBC 14.2 hemoglobin 9.1. Basic metabolic profile showed low sodium of 129 low potassium of 3.2 otherwise his labs are unremarkable. Calcium was noted to be low today at 5.9 however the patient had a low albumin of 1.4. Patient will be started on enteral feeding today, and a nutritional consult was initiated. Patient was on heparin yesterday for his at rial fibrillation with RVR however because of his low platelets, and since the patient converted to sinus rhythm, is now off amiodarone, and I recommended Lovenox. A d-dimer is pending. Pigtail catheter remains in place, still draining some serosanguineous fluid from the left pleural space, the mind you patient had loculated pleural effusion along with slightly elevated pro calcitonin and COVID-19 pneumonia. Has been receiving cefepime and vancomycin, blood cultures remain negative. Gram stain on the pleural effusion is negative however there is moderate polymorphonuclear leukocytes in the pleural effusion. Final culture is pending I felt that the effusion was parapneumonic related to u nderlying left lower lobe pneumonia in addition to his COVID-19 pneumonia Objective - Vital Signs Vital signs: Vital Signs Temp 97.9 F 06/28/22 08:00 Pulse 80 06/28/22 10:00 Resp 95 H 06/28/22 10:00 BP 88/56 06/27/22 19:00 Pulse Ox 98 06/28/22 10:00 FiO2 30 06/28/22 11:05 Intake & Output 06/27/22 06/28/22 06/28/22 18:59 06:59 18:59 Intake Total 0475.747 6244.571 779.051 Output Total 285 180 35 Balance 743.676 2933.571 744.051 Weight 60.6 kg Intake: IV 1225 1200 200 Dextrose 5% in Water 1, 900 900 150 000 ml @ 75 mls/hr IV . [id number] [facility] with Sodium Bicarb (1 Meq/ml) 150 ml Rx#:[id number] Dextrose 5%-0.45% NaCl 1, 325 300 50 000 ml @ 25 mls/hr IV . Q24H [facility] Rx#:[id number] Intake, IV Titration .979 967.571 579.051 Amount Calcium Gluconate in NaCl 50 2 gm In Saline 1 100ml. bag @ 50 mls/hr IVPB ONCE ONE Rx#:[id number] Cefepime 2 gm In Sodium 100 Chloride 0.9% 100 ml @ 25 mls/hr IVPB Q8HR [facility] Rx# :[id number] Magnesium Sulfate-D5w Pmx 200 1 gm In Dextrose/Water 1 100ml.bag @ 100 mls/hr IVPB Q1H [facility] Rx#: [id number] Norepinephrine 4 mg In 22.979 655.261 200.405 Sodium Chloride 0.9% 250 ml @ 0.03 MCG/KG/MIN 6. 012 mls/hr IV .Q24H [facility] Rx#:[id number] Vancomycin 750 mg In 250 Sodium Chloride 0.9% 250 ml @ 125 mls/hr IVPB Q12H [facility] Rx#:[id number] propofoL 1,000 mg In 62.310 28.646 Empty Bag 1 bag @ 15 MCG/ KG/MIN 5.283 mls/hr IV . [id number] [facility] Rx#:[id number] Output: Urine 285 180 35 Other: Voiding Method Indwelling Catheter Indwelling Catheter Indwelling Catheter ABP, PAP, CO, CI - Last Documented Arterial Blood Pressure 84/60 - Exam General: 61-year-old male Cachectic looking frail and chronically ill, intubated and mechanically ventilated, sedated, on propofol. HEAD: Atraumatic, normocephalic.. Endotracheal tube and orogastric tube are inta ct. EYES: PERRLA, EOMI, conjunctiva normal, no discharge. ENT: Moist mucous membranes, throat is clear. RESPIRATORY: Good breath sound bilaterally no rhonchi no wheezes Left-sided pigtail catheter is noted and are sanguinous effusion noted C/V: Distant S1 and S2, no S3 gallop. ABD: Soft nontender no megaly no rebound no guarding EXT: No clubbing edema or cyanosis SKIN: Evidence of significant vitiligo involving the back and the chest. NEURO: Cannot assess, fully sedated, on propofol Psychiatric: Cannot assess fully sedated - Labs CBC & Chem 7: 06/28/22 05:35 06/28/22 05:35 Labs: Abnormal Lab Results - Last 24 Hours (Table) 06/27/22 06/28/22 06/28/22 Range/Units 20:07 00:13 05:17 WBC (3.8-10.6) k/uL RBC (4.30-5.90) m/uL Hgb (13.0-17.5) gm/dL Hct (39.0-53.0) % RDW (11.5-15.5) % Plt Count (150-450) k/uL Neutrophils # (Manual) (1.3-7.7) k/uL Metamyelocytes # (Man) (0) k/uL Myelocytes # (Manual) (0) k/uL Nucleated RBCs (0-0) /100 WBC ABG pH 7.48 H (7.35-7.45) ABG pCO2 29 L 27 L (35-45) mmHg ABG pO2 >400 H 213 H (83-108) mmHg ABG HCO3 18 L 20 L (21-25) mmol/L ABG O2 Saturation 100.0 H 100.0 H (94-97) % Sodium (137-145) mmol/L Potassium (3.5-5.1) mmol/L Carbon Dioxide (22-30) mmol/L BUN (9-20) mg/dL Creatinine (0.66-1.25) mg/dL Glucose (74-99) mg/dL POC Glucose (mg/dL) 170 H (70-110) mg/dL Calcium (8.4-10.2) mg/dL Total Protein (6.3-8.2) g/dL Albumin (3.5-5.0) g/dL 06/28/22 06/28/22 06/28/22 Range/Units 05:34 05:35 05:35 WBC 14.2 H (3.8-10.6) k/uL RBC 2.92 L (4.30-5.90) m/uL Hgb 9.1 L (13.0-17.5) gm/dL Hct 27.1 L (39.0-53.0) % RDW 16.9 H (11.5-15.5) % Plt Count 79 L (150-450) k/uL Neutrophils # (Manual) 11.50 H (1.3-7.7) k/uL Metamyelocytes # (Man) 0.14 H (0) k/uL Myelocytes # (Manual) 0.14 H (0) k/uL Nucleated RBCs 7 H (0-0) /100 WBC ABG pH (7.35-7.45) ABG pCO2 (35-45) mmHg ABG pO2 (83-108) mmHg ABG HCO3 (21-25) mmol/L ABG O2 Saturation (94-97) % Sodium 129 L (137-145) mmol/L Potassium 3.2 L (3.5-5.1) mmol/L Carbon Dioxide 19 L (22-30) mmol/L BUN 25 H (9-20) mg/dL Creatinine 0.55 L (0.66-1.25) mg/dL Glucose 128 H (74-99) mg/dL POC Glucose (mg/dL) 164 H (70-110) mg/dL Calcium 5.9 L* (8.4-10.2) mg/dL Total Protein 3.7 L (6.3-8.2) g/dL Albumin 1.4 L (3.5-5.0) g/dL 06/28/22 Range/Units 11:29 WBC (3.8-10.6) k/uL RBC (4.30-5.90) m/uL Hgb (13.0-17.5) gm/dL Hct (39.0-53.0) % RDW (11.5-15.5) % Plt Count (150-450) k/uL Neutrophils # (Manual) (1.3-7.7) k/uL Metamyelocytes # (Man) (0) k/uL Myelocytes # (Manual) (0) k/uL Nucleated RBCs (0-0) /100 WBC ABG pH (7.35-7.45) ABG pCO2 (35-45) mmHg ABG pO2 (83-108) mmHg ABG HCO3 (21-25) mmol/L ABG O2 Saturation (94-97) % Sodium (137-145) mmol/L Potassium (3.5-5.1) mmol/L Carbon Dioxide (22-30) mmol/L BUN (9-20) mg/dL Creatinine (0.66-1.25) mg/dL Glucose (74-99) mg/dL POC Glucose (mg/dL) 174 H (70-110) mg/dL Calcium (8.4-10.2) mg/dL Total Protein (6.3-8.2) g/dL Albumin (3.5-5.0) g/dL Microbiology - Last 24 Hours (Table) 06/26/22 11:55 Gram Stain - Preliminary Pleural Fluid Body Fluid Culture - Preliminary 06/24/22 19:36 Blood Culture - Preliminary Blood No Growth after 72 hours 06/24/22 19:55 Blood Culture - Preliminary Blood No Growth after 72 hours Assessment and Plan Assessment: Impression: Sepsis and septic shock, likely secondary to left lower lobe pneumonia and complicated pleural effusion requiring pigtail catheter placement, labs are pending on the pleural effusion. Left lower lobe pneumonia with complicated parapneumonic effusion, possible empyema, possible hemothorax in the left pleural space considering the patient had previous history of fall and may be trauma to the chest. COVID-19 infection, remains on COVID-19 cocktail History of underlying COPD, remains on bronchodilators Hypotension secondary to sepsis and septic shock requiring norepinephrine at 0.3 mcg/kg/m, today I recommended fluid boluses and increase IV fluid rate. Acute hypoxic respiratory failure secondary to COVID-19 infection and underlying superimposed pneumonia with complicated left-sided parapneumonic effusion. Recommendation: Continue ventilatory support Continue to monitor in the ICU Continue antibiotics empirically including cefepime and vancomycin Continue bronchodilators Continue pigtail catheter management. Left subclavian central line was established today for hemodynamic support since the patient is on norepinephrine, patient pulled out previous central lines and declines before he was intubated Continues propofol/CIWA protocol Patient is critically ill. Prognosis is guarded. Critical care time is over 30 minutes, not including the time spent on procedures Time with Patient: Greater than 30
[2022-06-28 12:09] LABS: African American GFR (CKD) >90 (>60 ml/min/1.73 sqM); Anion Gap 3 mmol/L; Blood Urea Nitrogen 24 mg/dL (9-20); Carbon Dioxide 19 mmol/L (22-30); Chloride 107 mmol/L (98-107); Glucose 138 mg/dL (74-99); Magnesium 2.3 mg/dL (1.6-2.3); Non-African American GFR(CKD) >90 (>60 ml/min/1.73 sqM); Potassium 4.3 mmol/L (3.5-5.1); Sodium 129 mmol/L (137-145)
[2022-06-28 12:19] LABS: Calcium 5.9 mg/dL (8.4-10.2)
[2022-06-28] MEDS: NOREPINEPHRINE 8 MG in SODIUM CHLORIDE 0.9% 250 ML IV SCH ×2 (12:28→17:11)
[2022-06-28] MEDS ORDERED: LIDOCAINE 2% (PF) 20 MG/ML 5 ML VIAL ONE (13:26)
[2022-06-28] MEDS ORDERED: LIDOCAINE 1% INJ 10MG/ML (20 ML MDV) ONE (13:26)
[2022-06-28] MEDS: VASOPRESSIN 20 UNIT in SODIUM CHLORIDE 0.9% 50 ML IV SCH (13:54)
--- NOTE | 2022-06-28 13:56 | XR ---
EXAMINATION TYPE: XR chest 1V portable DATE OF EXAM: 06/28/2022 1:28 PM COMPARISON: Chest radiographs from 06/28/2022 earlier in the day TECHNIQUE: XR chest 1V portable Portable AP radiograph of the chest. CLINICAL INDICATION:Male, 61 years old with history of hypoxia; FINDINGS: Lungs/Pleura: Interval development of large left pneumothorax. Redistribution of left lower lobe cons olidation in scattered right-sided consolidation. Pulmonary vascularity: Unremarkable. Heart/mediastinum: Cardiomediastinal silhouette is unremarkable. Musculoskeletal: No acute osseous pathology. Lines/Tubes: Endotracheal tube with distal tip 4.1 cm above the rupal Nasogastric tube with its distal tip and side-port projecting under the diaphragm. Left thoracotomy tube is present with interval large pneumothorax Left central venous catheter with distal tip at the superior vena cava, IMPRESSION: Interval large left pneumothorax with pigtail catheter in place correlate for air leak.
--- NOTE | 2022-06-28 14:02 | XR ---
EXAMINATION TYPE: XR chest 1V portable DATE OF EXAM: 06/28/2022 1:55 PM COMPARISON: [facility] TECHNIQUE: XR chest 1V portable Portable AP radiograph of the chest. CLINICAL INDICATION:Male, 61 years old with history of post left chest tube insertion; FINDINGS: Interval thoracotomy tube placement with resolution of prior large left pneumothorax. Stable left mandeep tral venous catheter in nasogastric and endotracheal tubes. Similar airspace opacities. IMPRESSION: Interval second thoracotomy tube placement with tip in the lung apex. No evidence of pneumothorax on this exam.
--- NOTE | 2022-06-28 14:07 | P.PN ---
Progress Note - Text Progress Note Date: 06/28/22 Around 1 PM, I was notified by the nurse taking care of the patient that the patient is developing hypotension, he is desaturating, and his peak airway pressures have gone up. Went back and saw the patient, and I recommended a stat chest x-ray which I reviewed while I was at bedside, and there was clearly evidence of attention left-sided pneumothorax. It is not clear whether this pneumothorax is related to barotrauma from his COVID-19 infection mechanical ventilation or could be iatrogenic related to recent left-sided subclavian central line placement. Hence went ahead and placed a left sided chest tube uneventfully, it was connected to Pleur-evac. There was complete resolution of the pneumothorax, and the patient's blood pressure improved, his oxygenation improved, and follow-up chest x-ray showed excellent placement. Procedure was well-tolerated please refer to the operative report.
[2022-06-28] MEDS: THIAMINE 100 MG TAB PO SCH (16:53)
[2022-06-28 17:15] LABS: Glucose,Whole Blood 140 mg/dL (70-110)
--- NOTE | 2022-06-28 22:02 | OP ---
OPERATIVE REPORT PROCEDURE PERFORMED: Placement of a left subclavian triple-lumen catheter. PREOPERATIVE DIAGNOSES: Acute hypoxic respiratory failure and COVID-19 pneumonia. POSTOPERATIVE DIAGNOSIS: Acute hypoxic respiratory failure and COVID-19 pneumonia. ANESTHESIA: 2 mL of 1% lidocaine. DESCRIPTION PROCEDURE: The patient was placed in a supine position, the area below the left subclavian region was prepared in a sterile fashion. The area below the left clavicle was prepared in a sterile fashion, drapes were applied. The area below the left clavicle was locally anesthetized with lidocaine. Then using the anterior approach, the left subclavian vein was cannulated, and a guidewire was placed. The area around the guidewire was dilated, a triple-lumen catheter inserted over the guidewire, and the guidewire was removed. Good blood flow in 3 different ports of the triple-lumen catheter. No evidence of any immediate complications. There was no pneumothorax. Again, procedure was well tolerated. The line was secured using 3.0 silk sutures. MMODL / IJN: [id number] /
--- NOTE | 2022-06-28 22:18 | OP ---
OPERATIVE REPORT OPERATIVE PROCEDURE: Left-sided chest tube placement/tube thoracostomy. PREOPERATIVE DIAGNOSIS: Acute pneumothorax, not clear whether this is iatrogenic or could be related to barotrauma with the patient having COVID-19 pneumonia infection and he is mechanically ventilated. POSTOPERATIVE DIAGNOSIS: Acute pneumothorax, not clear whether this is iatrogenic or could be related to barotrauma with the patient having COVID-19 pneumonia infection and he is mechanically ventilated. ANESTHESIA USED: 5 mL of 1% lidocaine. DESCRIPTION OF PROCEDURE: The patient was placed in a supine position, he was already sedated and on mechanical ventilation, 10 mg of Nimbex IV push was given prior to the procedure. The area of the left chest was prepared in a sterile fashion and drapes were applied, the patient was placed in a supine position. The area at the level of the 6th intercostal space and anterior axillary line was anesthetized with lidocaine. Then, a 1.5 cm incision was made at the same site horizontally, and the subcutaneous tissue was dissected with the index finger and with a Hyacinth forceps until the pleural space was entered. A sudden gush of air was noted after the pleural space was entered. Then a size 28 [place] chest tube was placed pointing atypically into the chest. The tube was connected to mechanical to Pleur-Evac, and there was definitely an air bubble noted. The tube was secured, dressing was applied, and chest x-ray postoperatively showed adequate placement of the tube, and no complications. MMODL / IJN: [id number] /
--- NOTE | 2022-06-29 00:10 | P.PN ---
Subjective Progress Note Date: 06/27/22 Principal diagnosis: left-sided pneumonia/empyema Patient is a 61-year-old -Stateless male with a past medical history significant for COPD, recently tested positive for covid presenting to the hospital with left lower chest pain shortness of breath and cough, patient did have a positive Covid test, patient also noticed to have left-sided effusion concerning for empyema with a seated did shows bronchopneumonia, patient is status post chest tube placement by interventional radiology on 06/26/2022. On today's evaluation that is 06/27/2022 the patient remains to be afebrile, the patient is a breathing comfortably on 3 L nasal cannula chest pain is currently controlled no nausea no vomiting no abdominal pain or diarrhea Objective - Vital Signs Vital signs: Vital Signs Temp 97.5 F L 06/27/22 04:00 Pulse 48 L 06/27/22 07:00 Resp 11 L 06/27/22 07:00 BP 89/68 06/27/22 07:00 Pulse Ox 100 06/27/22 07:00 FiO2 21 06/25/22 03:07 Intake & Output 06/26/22 06/27/22 06/27/22 18:59 06:59 18:59 Intake Total 2318.656 1576.530 125 Output Total 665 455 20 Balance 7352.688 1121.530 105 Weight 57.7 kg 58.7 kg Intake: IV 1500 1425 125 Dextrose 5% in Water 1, 750 75 000 ml @ 75 mls/hr IV . [id number] [facility] with Sodium Bicarb (1 Meq/ml) 150 ml Rx#:[id number] Dextrose 5%-0.45% NaCl 1, 500 50 000 ml @ 50 mls/hr IV . Q20H [facility] Rx#:[id number] Norepinephrine 4 mg In 50 Sodium Chloride 0.9% 250 ml @ 0.03 MCG/KG/MIN 6. 012 mls/hr IV .Q24H [facility] Rx#:[id number] Sodium Chloride 0.9% 1, 1500 125 000 ml @ 125 mls/hr IV . Q8H [facility] Rx#:[id number] Intake, IV Titration 8.656 151.530 Amount Dexmedetomidine/0.9% NaCl 8.656 53.735 (Pmx) 400 mcg In Empty Bag 1 bag @ 1.2 MCG/KG/HR 17.31 mls/hr IV .Q5H47M [facility] Rx#:[id number] Norepinephrine 4 mg In 97.795 Sodium Chloride 0.9% 250 ml @ 0.03 MCG/KG/MIN 6. 012 mls/hr IV .Q24H [facility] Rx#:[id number] Oral 500 Blood Product 310 Rc As-1 Unit 310 [id number] Output: Chest Tube Drainage 110 left posterior chest 110 Drainage 400 120 Left Posterior Chest 400 120 Urine 265 225 20 Other: Voiding Method Incontinent Indwelling Catheter Indwelling Catheter # Voids 1 - Exam GENERAL DESCRIPTION: middle-age male lying in bed in no distress RESPIRATORY SYSTEM: Unlabored breathing , few crackles at the left base HEART: S1 S2 regular rate and rhythm , ABDOMEN: Soft , no tenderness EXTREMITIES: No edema feet - Labs CBC & Chem 7: 06/28/22 05:35 06/28/22 11:30 Labs: Abnormal Lab Results - Last 24 Hours (Table) 06/26/22 06/26/22 06/26/22 Range/Units 04:30 06:26 12:50 RBC 2.91 L (4.30-5.90) m/uL Hgb 9.2 L D (13.0-17.5) gm/dL Hct 28.1 L (39.0-53.0) % RDW 16.3 H (11.5-15.5) % Plt Count 107 L (150-450) k/uL Neutrophils # (Manual) (1.3-7.7) k/uL Lymphocytes # (Manual) (1.0-4.8) k/uL ABG pH (7.35-7.45) ABG pCO2 (35-45) mmHg ABG pO2 (83-108) mmHg ABG HCO3 (21-25) mmol/L ABG Total CO2 (19-24) mmol/L ABG O2 Saturation (94-97) % Sodium (137-145) mmol/L Potassium (3.5-5.1) mmol/L Chloride (98-107) mmol/L Carbon Dioxide (22-30) mmol/L BUN (9-20) mg/dL Creatinine (0.66-1.25) mg/dL Glucose (74-99) mg/dL POC Glucose (mg/dL) (70-110) mg/dL Calcium (8.4-10.2) mg/dL AST (17-59) U/L Total Protein (6.3-8.2) g/dL Albumin (3.5-5.0) g/dL Procalcitonin 2.04 H (0.02-0.09) ng/mL Crossmatch See Detail 06/26/22 06/27/22 06/27/22 Range/Units 19:25 00:12 00:19 RBC (4.30-5.90) m/uL Hgb (13.0-17.5) gm/dL Hct (39.0-53.0) % RDW (11.5-15.5) % Plt Count (150-450) k/uL Neutrophils # (Manual) (1.3-7.7) k/uL Lymphocytes # (Manual) (1.0-4.8) k/uL ABG pH 7.29 L (7.35-7.45) ABG pCO2 16 L* 24 L (35-45) mmHg ABG pO2 82 L (83-108) mmHg ABG HCO3 8 L* 15 L (21-25) mmol/L ABG Total CO2 8 L 16 L (19-24) mmol/L ABG O2 Saturation 98.0 H 93.9 L (94-97) % Sodium (137-145) mmol/L Potassium (3.5-5.1) mmol/L Chloride (98-107) mmol/L Carbon Dioxide (22-30) mmol/L BUN (9-20) mg/dL Creatinine (0.66-1.25) mg/dL Glucose (74-99) mg/dL POC Glucose (mg/dL) 212 H (70-110) mg/dL Calcium (8.4-10.2) mg/dL AST (17-59) U/L Total Protein (6.3-8.2) g/dL Albumin (3.5-5.0) g/dL Procalcitonin (0.02-0.09) ng/mL Crossmatch 06/27/22 06/27/22 06/27/22 Range/Units 04:19 04:19 05:44 RBC 2.82 L (4.30-5.90) m/uL Hgb 9.0 L (13.0-17.5) gm/dL Hct 28.1 L (39.0-53.0) % RDW 16.8 H (11.5-15.5) % Plt Count 75 L (150-450) k/uL Neutrophils # (Manual) 9.10 H (1.3-7.7) k/uL Lymphocytes # (Manual) 0.19 L (1.0-4.8) k/uL ABG pH (7.35-7.45) ABG pCO2 (35-45) mmHg ABG pO2 (83-108) mmHg ABG HCO3 (21-25) mmol/L ABG Total CO2 (19-24) mmol/L ABG O2 Saturation (94-97) % Sodium 130 L (137-145) mmol/L Potassium 3.4 L (3.5-5.1) mmol/L Chloride 109 H (98-107) mmol/L Carbon Dioxide 15 L (22-30) mmol/L BUN 29 H (9-20) mg/dL Creatinine 0.42 L (0.66-1.25) mg/dL Glucose 205 H (74-99) mg/dL POC Glucose (mg/dL) 273 H (70-110) mg/dL Calcium 6.5 L (8.4-10.2) mg/dL AST 60 H (17-59) U/L Total Protein 3.9 L (6.3-8.2) g/dL Albumin 1.4 L (3.5-5.0) g/dL Procalcitonin (0.02-0.09) ng/mL Crossmatch Microbiology - Last 24 Hours (Table) 06/26/22 11:55 Gram Stain - Preliminary Pleural Fluid Body Fluid Culture - Preliminary 06/24/22 19:36 Blood Culture - Preliminary Blood No Growth after 48 hours 06/24/22 19:55 Blood Culture - Preliminary Blood No Growth after 48 hours 06/26/22 11:55 Anaerobic Culture - Preliminary Pleural Fluid Assessment and Plan (1) COPD (chronic obstructive pulmonary disease) Current Visit: Yes Status: Acute Code(s): J44.9 - CHRONIC OBSTRUCTIVE PULMONARY DISEASE, UNSPECIFIED SNOMED Code(s): 42024432 (2) Dehydration Current Visit: Yes Status: Acute Code(s): E86.0 - DEHYDRATION SNOMED Code(s): 48196900 Plan: 1patient with a recent history of fall now complaining of left lower chest pain shortness of breath and cough and being of some purulent sputum with evidence of left lower lobe infiltrate and effusion concerning for pneumonia and possible parapneumonic effusion/empyema in this patient tested positive for COVID about 2 weeks ago and a question of possible post COVID-pneumonia 2 patient with likely left lower lobe pneumonia and possible empyema in this patient who is status post chest tube placement fluid has been sent for cultures which are currently pending 3-Patient seem to have shown some clinical improvement cultures are currently pending we will continue patient cefepime and vancomycin while waiting for the culture to finalize and monitor clinical course closely Time with Patient: Less than 30
--- NOTE | 2022-06-29 00:14 | P.PN ---
Subjective Progress Note Date: 06/28/22 Principal diagnosis: left-sided pneumonia/empyema Patient is a 61-year-old -[place]ames[place] male with a past medical history significant for COPD, recently tested positive for covid presenting to the hospital with left lower chest pain shortness of breath and cough, patient did have a positive Covid test, patient also noticed to have left-sided effusion concerning for empyema with a seated did shows bronchopneumonia, patient is status post chest tube placement by interventional radiology on 06/26/2022.Patient did went into respiratory distress evening of 06/27/2022 and the patient is getting intubated, patient did have a pneumothorax on the left side requiring a chest tube placement on 06/28/2022. On today's evaluation that is 06/28/2022 the patient is currently afebrile, the patient is on pressor support to maintain his blood pressure, patient FiO2 is currently down to 50% no significant purulent secretion through the ET diarrhea or any other changes reported by the nursing staff Objective - Vital Signs Vital signs: Vital Signs Temp 97.8 F 06/28/22 12:00 Pulse 98 06/28/22 12:00 Resp 24 06/28/22 12:00 BP 88/56 06/27/22 19:00 Pulse Ox 95 06/28/22 12:00 FiO2 50 06/28/22 12:00 Intake & Output 06/27/22 06/28/22 06/28/22 18:59 06:59 18:59 Intake Total 2579.609 0314.571 2179.051 Output Total 285 180 55 Balance 909.778 6349.571 2124.051 Weight 60.6 kg Intake: IV 1225 1200 400 Dextrose 5% in Water 1, 900 900 300 000 ml @ 75 mls/hr IV . [id number] [facility] with Sodium Bicarb (1 Meq/ml) 150 ml Rx#:[id number] Dextrose 5%-0.45% NaCl 1, 325 300 100 000 ml @ 25 mls/hr IV . Q24H [facility] Rx#:[id number] Intake, IV Titration 22.979 739.023 8904.051 Amount Amiodarone 360 mg In 200 Dextrose 5% in Water 200 ml @ 1 MG/MIN 33.333 mls/ hr IV .Q6H ONE Rx#: [id number] Calcium Gluconate in NaCl 50 2 gm In Saline 1 100ml. bag @ 50 mls/hr IVPB ONCE ONE Rx#:[id number] Cefepime 2 gm In Sodium 100 Chloride 0.9% 100 ml @ 25 mls/hr IVPB Q8HR [facility] Rx# :[id number] Magnesium Sulfate-D5w Pmx 200 1 gm In Dextrose/Water 1 100ml.bag @ 100 mls/hr IVPB Q1H [facility] Rx#: [id number] Norepinephrine 4 mg In 22.979 655.261 200.405 Sodium Chloride 0.9% 250 ml @ 0.03 MCG/KG/MIN 6. 012 mls/hr IV .Q24H [facility] Rx#:[id number] Sodium Chloride 0.9% 1, 1000 000 ml @ 999 mls/hr IV . Q1H1M ONE Rx#:[id number] Vancomycin 750 mg In 250 Sodium Chloride 0.9% 250 ml @ 125 mls/hr IVPB Q12H [facility] Rx#:[id number] propofoL 1,000 mg In 62.310 28.646 Empty Bag 1 bag @ 15 MCG/ KG/MIN 5.283 mls/hr IV . [id number] [facility] Rx#:[id number] Output: Urine 285 180 55 Other: Voiding Method Indwelling Catheter Indwelling Catheter Indwelling Catheter ABP, PAP, CO, CI - Last Documented Arterial Blood Pressure 93/65 - Exam GENERAL DESCRIPTION: Middle-age male intubated on the vent RESPIRATORY SYSTEM: Unlabored breathing , few crackles at the left base HEART: S1 S2 regular rate and rhythm , ABDOMEN: Soft , no tenderness EXTREMITIES: No edema feet - Labs CBC & Chem 7: 06/28/22 05:35 06/28/22 11:30 Labs: Abnormal Lab Results - Last 24 Hours (Table) 06/27/22 06/28/22 06/28/22 Range/Units 20:07 00:13 05:17 WBC (3.8-10.6) k/uL RBC (4.30-5.90) m/uL Hgb (13.0-17.5) gm/dL Hct (39.0-53.0) % RDW (11.5-15.5) % Plt Count (150-450) k/uL Neutrophils # (Manual) (1.3-7.7) k/uL Metamyelocytes # (Man) (0) k/uL Myelocytes # (Manual) (0) k/uL Nucleated RBCs (0-0) /100 WBC D-Dimer (<0.60) mg/L FEU ABG pH 7.48 H (7.35-7.45) ABG pCO2 29 L 27 L (35-45) mmHg ABG pO2 >400 H 213 H (83-108) mmHg ABG HCO3 18 L 20 L (21-25) mmol/L ABG O2 Saturation 100.0 H 100.0 H (94-97) % Sodium (137-145) mmol/L Potassium (3.5-5.1) mmol/L Carbon Dioxide (22-30) mmol/L BUN (9-20) mg/dL Creatinine (0.66-1.25) mg/dL Glucose (74-99) mg/dL POC Glucose (mg/dL) 170 H (70-110) mg/dL Calcium (8.4-10.2) mg/dL Ionized Calcium Ken (4.5-5.3) mg/dL Total Protein (6.3-8.2) g/dL Albumin (3.5-5.0) g/dL 06/28/22 06/28/22 06/28/22 Range/Units 05:34 05:35 05:35 WBC 14.2 H (3.8-10.6) k/uL RBC 2.92 L (4.30-5.90) m/uL Hgb 9.1 L (13.0-17.5) gm/dL Hct 27.1 L (39.0-53.0) % RDW 16.9 H (11.5-15.5) % Plt Count 79 L (150-450) k/uL Neutrophils # (Manual) 11.50 H (1.3-7.7) k/uL Metamyelocytes # (Man) 0.14 H (0) k/uL Myelocytes # (Manual) 0.14 H (0) k/uL Nucleated RBCs 7 H (0-0) /100 WBC D-Dimer (<0.60) mg/L FEU ABG pH (7.35-7.45) ABG pCO2 (35-45) mmHg ABG pO2 (83-108) mmHg ABG HCO3 (21-25) mmol/L ABG O2 Saturation (94-97) % Sodium 129 L (137-145) mmol/L Potassium 3.2 L (3.5-5.1) mmol/L Carbon Dioxide 19 L (22-30) mmol/L BUN 25 H (9-20) mg/dL Creatinine 0.55 L (0.66-1.25) mg/dL Glucose 128 H (74-99) mg/dL POC Glucose (mg/dL) 164 H (70-110) mg/dL Calcium 5.9 L* (8.4-10.2) mg/dL Ionized Calcium Ken (4.5-5.3) mg/dL Total Protein 3.7 L (6.3-8.2) g/dL Albumin 1.4 L (3.5-5.0) g/dL 06/28/22 06/28/22 06/28/22 Range/Units 11:29 11:30 11:30 WBC (3.8-10.6) k/uL RBC (4.30-5.90) m/uL Hgb (13.0-17.5) gm/dL Hct (39.0-53.0) % RDW (11.5-15.5) % Plt Count (150-450) k/uL Neutrophils # (Manual) (1.3-7.7) k/uL Metamyelocytes # (Man) (0) k/uL Myelocytes # (Manual) (0) k/uL Nucleated RBCs (0-0) /100 WBC D-Dimer (<0.60) mg/L FEU ABG pH (7.35-7.45) ABG pCO2 (35-45) mmHg ABG pO2 (83-108) mmHg ABG HCO3 (21-25) mmol/L ABG O2 Saturation (94-97) % Sodium 129 L (137-145) mmol/L Potassium (3.5-5.1) mmol/L Carbon Dioxide 19 L (22-30) mmol/L BUN 24 H (9-20) mg/dL Creatinine 0.52 L (0.66-1.25) mg/dL Glucose 138 H (74-99) mg/dL POC Glucose (mg/dL) 174 H (70-110) mg/dL Calcium 5.9 L* (8.4-10.2) mg/dL Ionized Calcium Ken 4.1 L (4.5-5.3) mg/dL Total Protein (6.3-8.2) g/dL Albumin (3.5-5.0) g/dL 06/28/22 Range/Units 12:05 WBC (3.8-10.6) k/uL RBC (4.30-5.90) m/uL Hgb (13.0-17.5) gm/dL Hct (39.0-53.0) % RDW (11.5-15.5) % Plt Count (150-450) k/uL Neutrophils # (Manual) (1.3-7.7) k/uL Metamyelocytes # (Man) (0) k/uL Myelocytes # (Manual) (0) k/uL Nucleated RBCs (0-0) /100 WBC D-Dimer 6.95 H (<0.60) mg/L FEU ABG pH (7.35-7.45) ABG pCO2 (35-45) mmHg ABG pO2 (83-108) mmHg ABG HCO3 (21-25) mmol/L ABG O2 Saturation (94-97) % Sodium (137-145) mmol/L Potassium (3.5-5.1) mmol/L Carbon Dioxide (22-30) mmol/L BUN (9-20) mg/dL Creatinine (0.66-1.25) mg/dL Glucose (74-99) mg/dL POC Glucose (mg/dL) (70-110) mg/dL Calcium (8.4-10.2) mg/dL Ionized Calcium Ken (4.5-5.3) mg/dL Total Protein (6.3-8.2) g/dL Albumin (3.5-5.0) g/dL Microbiology - Last 24 Hours (Table) 06/27/22 21:40 Sputum Culture - Preliminary Sputum 06/26/22 11:55 Gram Stain - Preliminary Pleural Fluid Body Fluid Culture - Preliminary 06/24/22 19:36 Blood Culture - Preliminary Blood No Growth after 72 hours 06/24/22 19:55 Blood Culture - Preliminary Blood No Growth after 72 hours Assessment and Plan (1) COPD (chronic obstructive pulmonary disease) Current Visit: Yes Status: Acute Code(s): J44.9 - CHRONIC OBSTRUCTIVE PULMONARY DISEASE, UNSPECIFIED SNOMED Code(s): 98838435 (2) Dehydration Current Visit: Yes Status: Acute Code(s): E86.0 - DEHYDRATION SNOMED Code(s): 18447632 Plan: 1patient with a recent history of fall now complaining of left lower chest pain shortness of breath and cough and being of some purulent sputum with evidence of left lower lobe infiltrate and effusion concerning for pneumonia and possible parapneumonic effusion/empyema in this patient tested positive for COVID about 2 weeks ago and a question of possible post COVID-pneumonia 2 patient with likely left lower lobe pneumonia and possible empyema in this patient who is status post chest tube placement fluid has been sent for cultures which are currently pending 3-Patient did have a worsening of his respiratory status requiring intubation did have a chest tube for pneumothorax on the left side pleural fluid culture still pending sputum cultures will be requested continue with the cefepime and vancomycin and monitor clinical course closely Time with Patient: Less than 30
[2022-06-29] MEDS: ALBUTEROL HFA INHALER INHALATION SCH ×7 (00:20→23:24)
[2022-06-29 00:22] LABS: Glucose,Whole Blood 128 mg/dL (70-110)
[2022-06-29] MEDS: NOREPINEPHRINE 8 MG in SODIUM CHLORIDE 0.9% 250 ML IV SCH ×6 (00:37→22:18)
[2022-06-29] MEDS: INSULIN ASPART (NovoLOG) 100 UNIT/ML VIAL SQ SCH ×4 (01:33→17:37)
[2022-06-29] MEDS: CEFEPIME 2 GM in SODIUM CHLORIDE 0.9% 100 ML IVPB SCH ×3 (01:47→16:30)
[2022-06-29 05:23] LABS: Glucose,Whole Blood 178 mg/dL (70-110)
[2022-06-29 05:49] LABS: Glucose,Whole Blood 191 mg/dL (70-110)
[2022-06-29 06:01] LABS: Anisocytosis Slight; Hypochromasia Slight; MCH 32.5 pg (25.0-35.0); MCHC 34.9 g/dL (31.0-37.0); MCV 93.1 fL (80.0-100.0); Mean Platelet Volume 12.6; Poikilocytosis Slight; RBC 1.91 m/uL (4.30-5.90); RDW 16.6 % (11.5-15.5)
[2022-06-29 06:04] LABS: Platelet Count 58 k/uL (150-450)
[2022-06-29 06:07] LABS: ABG Base Excess -3.9 mmol/L; ABG HCO3 19 mmol/L (21-25); ABG PCO2 25 mmHg (35-45); ABG PO2 133 mmHg (83-108); ABG TCO2 20 mmol/L (19-24)
[2022-06-29 06:07] LABS: HGB 6.2 gm/dL (13.0-17.5)
[2022-06-29 06:08] LABS: HCT 17.8 % (39.0-53.0)
[2022-06-29 06:12] LABS: Allen Test Performed? No
[2022-06-29 06:29] LABS: Band Neutrophils % 27 %; Lymphocytes # (M) 1.34 k/uL (1.0-4.8); Monocytes # (M) 1.19 k/uL (0-1.0); Myelocytes # (M) 0.15 k/uL (0); Myelocytes % 1 %; Neutrophils % (M) 55 %; Nucleated Red Blood Cells 16 /100 WBC (0-0); Total Cells Counted 200; WBC 14.9 k/uL (3.8-10.6)
[2022-06-29 06:31] LABS: Anisocytosis (M) Present; Poikilocytosis (M) Present; Target Cells Present; Toxic Granulation Present
[2022-06-29 06:44] LABS: ALT 28 U/L (4-49); AST 29 U/L (17-59); African American GFR (CKD) >90 (>60 ml/min/1.73 sqM); Albumin 1.1 g/dL (3.5-5.0); Alkaline Phosphatase 50 U/L (38-126); Anion Gap 5 mmol/L; Blood Urea Nitrogen 25 mg/dL (9-20); Carbon Dioxide 17 mmol/L (22-30); Chloride 107 mmol/L (98-107); Glucose 143 mg/dL (74-99); Magnesium 1.9 mg/dL (1.6-2.3); Non-African American GFR(CKD) >90 (>60 ml/min/1.73 sqM); Potassium 3.7 mmol/L (3.5-5.1); Sodium 129 mmol/L (137-145)
--- NOTE | 2022-06-29 06:58 | XR ---
EXAMINATION TYPE: XR chest 1V portable DATE OF EXAM: 06/29/2022 5:53 AM COMPARISON: Chest radiograph from one day prior. TECHNIQUE: XR chest 1V portable Portable AP radiograph of the chest. CLINICAL INDICATION:Male, 61 years old with history of Tube placement; FINDINGS: Lungs/Pleura: Consolidation changes in the left lung base and to a lesser extent the right lung base. There is no evidence of pleural effusion, focal consolidation, or pneumothorax. Pulmonary vascularity: Unremarkable. Heart/mediastinum: Cardiomediastinal silhouette is unremarkable. Musculoskeletal: No acute osseous pathology. Other findings: None Lines/Tubes: Endotracheal tube with distal tip 4.1 cm above the rupal Nasogastric tube with its distal tip and side-port projecting under the diaphragm. Left thoracotomy tubes are present without evidence of pneumothorax. Left central venous catheter with distal tip at the superior vena cava IMPRESSION: 1. Similar multifocal airspace opacities. 2. Stable support line and tubes. 3. No appreciable pneumothorax.
[2022-06-29 07:02] LABS: Calcium 4.8 mg/dL (8.4-10.2)
[2022-06-29] MEDS: SYMBICORT 160-4.5 MCG INHALER INHALATION SCH ×2 (07:08→20:28)
[2022-06-29] MEDS: VASOPRESSIN 20 UNIT in SODIUM CHLORIDE 0.9% 50 ML IV SCH ×2 (08:16→15:33)
[2022-06-29] MEDS ORDERED: CISATRACURIUM 2 MG/ML 5 ML VIAL IV ONE ×2 (08:55→08:58)
[2022-06-29] MEDS: DEXTROSE 5%-0.45% NACL 1,000 ML IV SCH ×2 (09:02→21:55)
[2022-06-29] MEDS: DEXMEDETOMIDINE/0.9% NACL(PMX) 400 MCG in EMPTY BAG 1 BAG IV SCH ×2 (09:05→11:02)
[2022-06-29] MEDS: VANCOMYCIN 1,000 MG in SODIUM CHLORIDE 0.9% 250 ML IVPB SCH ×2 (09:12→17:40)
[2022-06-29] MEDS: CISATRACURIUM 200 MG in SODIUM CHLORIDE 0.9% 180 ML IV SCH (09:18)
--- NOTE | 2022-06-29 09:52 | P.PN ---
Subjective Progress Note Date: 06/29/22 Principal diagnosis: Left lower lobe pneumonia with complicated loculated parapneumonic effusion, possible empyema. Past medical history significant for COPD, neuropathy, is legally blind, a 90 pound weight loss over one year and chronic ongoing tobacco dependence and daily EtOH use of drinking 1 beer per day. Status post day #4 left chest pleural pigtail catheter placement by interventional radiology. The patient was seen and examined in follow-up today 06/29/2022 at his bedside in the intensive care unit. Currently the patient is laying in bed, remains intubated with mechanical ventilator support and is sedated on propofol drip. He remains on norepinephrine drip at 40 mcg/m and vasopressin at 0.03 units/min for blood pressure support. The left pleural pigtail catheter remains in place to low continuous wall suction -20 cm H2O. No air leak is present. Draining thin serosanguineous drainage with 500 mL output in the last 24 hours. He did receive a third dose of alteplase/dornase yesterday pleural instillation per his left pleural pigtail catheter. The patient developed a left-sided pneumothorax yesterday requiring placement of an anterior left pleural chest tube. Chest tube remains to low continuous wall suction -20 cm H2O. Oxygen saturation are 97% on current mechanical ventilator settings, assist control 16, TV 400, FiO2 30% and PEEP of 5. Laboratory results this morning show a WBC count of 14.9, hemoglobin 6.2, hematocrit 17.8, platelets 58, sodium 129, potassium 3.7, CO2 17, BUN 25, creatinine 0.71, calcium 4.8, and magnesium 1.9. The patient is going to receive 1 unit of Red blood cells this morning for his hemoglobin of 6.2. Bedside telemetry showing normal sinus rhythm heart rate 97 BPM. He has been afebrile the last 24 hours. Objective - Vital Signs Vital signs: Vital Signs Temp 97.9 F 06/28/22 16:00 Pulse 89 06/29/22 08:00 Resp 28 H 06/29/22 08:00 BP 110/75 06/29/22 08:00 Pulse Ox 100 06/29/22 08:00 FiO2 30 06/29/22 07:02 Intake & Output 06/28/22 06/29/22 06/29/22 18:59 06:59 18:59 Intake Total 3327.023 3306.38 118.973 Output Total 1970 660 6 Balance 0278.113 1527.38 112.973 Weight 65.5 kg Intake: IV 1100 825 75 Dextrose 5% in Water 1, 825 825 75 000 ml @ 75 mls/hr IV . [id number] FELICIA with Sodium Bicarb (1 Meq/ml) 150 ml Rx#:[id number] Dextrose 5%-0.45% NaCl 1, 275 000 ml @ 25 mls/hr IV . Q24H [facility] Rx#:[id number] Intake, IV Titration 2227.023 2481.38 43.973 Amount Amiodarone 360 mg In 200 Dextrose 5% in Water 200 ml @ 1 MG/MIN 33.333 mls/ hr IV .Q6H ONE Rx#: [id number] Calcium Gluconate in NaCl 50 2 gm In Saline 1 100ml. bag @ 50 mls/hr IVPB ONCE ONE Rx#:[id number] Cefepime 2 gm In Sodium 100 Chloride 0.9% 100 ml @ 25 mls/hr IVPB Q8HR [facility] Rx# :[id number] Magnesium Sulfate-D5w Pmx 200 1 gm In Dextrose/Water 1 100ml.bag @ 100 mls/hr IVPB Q1H [facility] Rx#: [id number] Norepinephrine 4 mg In 443.563 Sodium Chloride 0.9% 250 ml @ 0.03 MCG/KG/MIN 6. 012 mls/hr IV .Q24H [facility] Rx#:[id number] Norepinephrine 8 mg In 204.814 481.38 43.973 Sodium Chloride 0.9% 250 ml @ 0.03 MCG/KG/MIN 3. 518 mls/hr IV .Q24H [facility] Rx#:[id number] Sodium Chloride 0.9% 1, 1000 000 ml @ 999 mls/hr IV . Q1H1M ONE Rx#:[id number] Sodium Chloride 0.9% 1, 2000 000 ml @ 999 mls/hr IV . Q1H1M ONE Rx#:[id number] propofoL 1,000 mg In 28.646 Empty Bag 1 bag @ 15 MCG/ KG/MIN 5.283 mls/hr IV . [id number] [facility] Rx#:[id number] Output: Chest Tube Drainage 1800 600 Left Upper Anterior Chest 600 200 left posterior chest 1200 400 Urine 170 60 6 Other: Voiding Method Indwelling Catheter Indwelling Catheter ABP, PAP, CO, CI - Last Documented Arterial Blood Pressure 79/56 - Exam CONSTITUTIONAL: Laying in bed, in the intensive care unit, is sedated, intubated with mechanical ventilator support. Not following any simple verbal commands at this time. Cachectic. HEENT: Neck is supple, no JVD, no lymphadenopathy. RESPIRATORY: Lungs sounds essentially clear throughout, diminished to his bilateral bases, left greater than right. Respirations are symmetrical and nonlabored with mechanical ventilator support. Currently mechanical ventilator settings are assist control 16, TV 400, FiO2 30% and PEEP of 5. Oxygen saturations are 97% on current mechanical ventilator settings. CARDIOVASCULAR: Regular rhythm and rate. S1 and S2 present, negative for S3, gallop or murmur. Palpable peripheral pulses bilaterally, no edema to his bilateral lower extremities. Bedside telemetry showing normal sinus rhythm heart rate 97 BPM. GASTROINTESTINAL: Abdomen soft, nontender, nondistended. Active bowel sounds present 4 quadrants. No guarding or rigidity. OG tube in place. GENITOURINARY: Victor catheter in place for accurate I's and O's. INTEGUMENTARY: Skin is warm and dry with no evidence of clubbing or cyanosis. Dressing is clean, dry and intact to left chest pigtail catheter and to his left anterior pleural chest tube. NEUROLOGIC: Unable to accurately assess this a.m. as the patient sedated on propofol drip. Patient is legally blind. MUSKULOSKELETAL: Unable to accurately assess this a.m. as the patient is sedated on propofol drip. PSYCHIATRIC: Unable to accurately assess this a.m. as the patient is sedated on propofol drip. INVASIVE LINES AND TUBES: Left chest pigtail catheter in place to low continuous wall suction -20 cm H2O. No air leak is present. Draining thin serosanguineous drainage with 500 mL output in the last 24 hours. Left anterior pleural chest tube remains in place to low continuous wall suction -20 cm H2O. No air leak is present. Draining thin serosanguineous drainage. - Allied health notes Allied health notes reviewed: nursing - Labs CBC & Chem 7: 06/29/22 05:20 06/29/22 05:45 Labs: Abnormal Lab Results - Last 24 Hours (Table) 06/28/22 06/28/22 06/28/22 Range/Units 05:35 11:29 11:30 WBC 14.2 H (3.8-10.6) k/uL RBC (4.30-5.90) m/uL Hgb (13.0-17.5) gm/dL Hct (39.0-53.0) % RDW (11.5-15.5) % Plt Count (150-450) k/uL Neutrophils # (Manual) 11.50 H (1.3-7.7) k/uL Monocytes # (Manual) (0-1.0) k/uL Metamyelocytes # (Man) 0.14 H (0) k/uL Myelocytes # (Manual) 0.14 H (0) k/uL Nucleated RBCs 7 H (0-0) /100 WBC D-Dimer (<0.60) mg/L FEU ABG pH (7.35-7.45) ABG pCO2 (35-45) mmHg ABG pO2 (83-108) mmHg ABG HCO3 (21-25) mmol/L ABG O2 Saturation (94-97) % Sodium 129 L (137-145) mmol/L Carbon Dioxide 19 L (22-30) mmol/L BUN 24 H (9-20) mg/dL Creatinine 0.52 L (0.66-1.25) mg/dL Glucose 138 H (74-99) mg/dL POC Glucose (mg/dL) 174 H (70-110) mg/dL Calcium 5.9 L* (8.4-10.2) mg/dL Ionized Calcium Ken (4.5-5.3) mg/dL Total Protein (6.3-8.2) g/dL Albumin (3.5-5.0) g/dL 06/28/22 06/28/22 06/28/22 Range/Units 11:30 12:05 17:14 WBC (3.8-10.6) k/uL RBC (4.30-5.90) m/uL Hgb (13.0-17.5) gm/dL Hct (39.0-53.0) % RDW (11.5-15.5) % Plt Count (150-450) k/uL Neutrophils # (Manual) (1.3-7.7) k/uL Monocytes # (Manual) (0-1.0) k/uL Metamyelocytes # (Man) (0) k/uL Myelocytes # (Manual) (0) k/uL Nucleated RBCs (0-0) /100 WBC D-Dimer 6.95 H (<0.60) mg/L FEU ABG pH (7.35-7.45) ABG pCO2 (35-45) mmHg ABG pO2 (83-108) mmHg ABG HCO3 (21-25) mmol/L ABG O2 Saturation (94-97) % Sodium (137-145) mmol/L Carbon Dioxide (22-30) mmol/L BUN (9-20) mg/dL Creatinine (0.66-1.25) mg/dL Glucose (74-99) mg/dL POC Glucose (mg/dL) 140 H (70-110) mg/dL Calcium (8.4-10.2) mg/dL Ionized Calcium Ken 4.1 L (4.5-5.3) mg/dL Total Protein (6.3-8.2) g/dL Albumin (3.5-5.0) g/dL 06/29/22 06/29/22 06/29/22 Range/Units 00:20 05:20 05:21 WBC 14.9 H (3.8-10.6) k/uL RBC 1.91 L (4.30-5.90) m/uL Hgb 6.2 L* D (13.0-17.5) gm/dL Hct 17.8 L* (39.0-53.0) % RDW 16.6 H (11.5-15.5) % Plt Count 58 L (150-450) k/uL Neutrophils # (Manual) 12.20 H (1.3-7.7) k/uL Monocytes # (Manual) 1.19 H (0-1.0) k/uL Metamyelocytes # (Man) (0) k/uL Myelocytes # (Manual) 0.15 H (0) k/uL Nucleated RBCs 16 H (0-0) /100 WBC D-Dimer (<0.60) mg/L FEU ABG pH (7.35-7.45) ABG pCO2 (35-45) mmHg ABG pO2 (83-108) mmHg ABG HCO3 (21-25) mmol/L ABG O2 Saturation (94-97) % Sodium (137-145) mmol/L Carbon Dioxide (22-30) mmol/L BUN (9-20) mg/dL Creatinine (0.66-1.25) mg/dL Glucose (74-99) mg/dL POC Glucose (mg/dL) 128 H 178 H (70-110) mg/dL Calcium (8.4-10.2) mg/dL Ionized Calcium Ken (4.5-5.3) mg/dL Total Protein (6.3-8.2) g/dL Albumin (3.5-5.0) g/dL 06/29/22 06/29/22 06/29/22 Range/Units 05:45 05:45 05:46 WBC (3.8-10.6) k/uL RBC (4.30-5.90) m/uL Hgb (13.0-17.5) gm/dL Hct (39.0-53.0) % RDW (11.5-15.5) % Plt Count (150-450) k/uL Neutrophils # (Manual) (1.3-7.7) k/uL Monocytes # (Manual) (0-1.0) k/uL Metamyelocytes # (Man) (0) k/uL Myelocytes # (Manual) (0) k/uL Nucleated RBCs (0-0) /100 WBC D-Dimer (<0.60) mg/L FEU ABG pH 7.50 H (7.35-7.45) ABG pCO2 25 L (35-45) mmHg ABG pO2 133 H (83-108) mmHg ABG HCO3 19 L (21-25) mmol/L ABG O2 Saturation 100.0 H (94-97) % Sodium 129 L (137-145) mmol/L Carbon Dioxide 17 L (22-30) mmol/L BUN 25 H (9-20) mg/dL Creatinine (0.66-1.25) mg/dL Glucose 143 H (74-99) mg/dL POC Glucose (mg/dL) 191 H (70-110) mg/dL Calcium 4.8 L* (8.4-10.2) mg/dL Ionized Calcium Ken (4.5-5.3) mg/dL Total Protein 3.0 L (6.3-8.2) g/dL Albumin 1.1 L (3.5-5.0) g/dL Microbiology - Last 24 Hours (Table) 06/27/22 21:40 Gram Stain - Preliminary Sputum Sputum Culture - Preliminary 06/26/22 11:55 Gram Stain - Preliminary Pleural Fluid Body Fluid Culture - Preliminary 06/24/22 19:55 Blood Culture - Preliminary Blood No Growth after 96 hours 06/24/22 19:36 Blood Culture - Preliminary Blood No Growth after 96 hours 06/26/22 11:55 Anaerobic Culture - Preliminary Pleural Fluid - Imaging and Cardiology Chest x-ray: report reviewed, image reviewed Assessment and Plan Assessment: 1. Left lower lobe pneumonia with complicated loculated parapneumonic effusion, possible empyema, status post left pleural pigtail placement by interventional radiology 2. Sepsis 4. Acute hypoxic respiratory failure, requiring intubation with mechanical ventilator support 5. Paroxysmal atrial fibrillation, currently in normal sinus rhythm 6. Hypotension, likely due to sepsis 7. Status post fall from standing 8. COVID-19 virus infection 9. Shortness of breath, likely secondary to above 10. Chronic obstructive pulmonary disease 11. Malnutrition, cachectic 90 pound weight loss over one year period 12. Chronic ongoing tobacco dependence 13. Daily EtOH use, drinks 1 beer daily 14. Legally blind 15. Spontaneous left pneumothorax, status post left pleural chest tube placement by Dr. Otero Plan: 1. We will hold off on any alteplase/dornase pleural instillation as the patient is hemodynamically unstable requiring norepinephrine and vasopressin drip support for his blood pressure. 2. Continue to monitor daily chest x-rays. 3. Mechanical ventilator management and propofol drip per pulmonary critical care recommendations. 4. Continue antibiotics, currently on cefepime and vancomycin managed by infectious disease. 5. GI and DVT prophylaxis. 6. Norepinephrine and vasopressin drip management per pulmonary critical care management. D5W with sodium bicarbonate drip management per pulmonary critical care. 7. Continue to monitor pleural fluid culture results. Pleural fluid cultures show no growth after 72 hours. 8. More recommendations to follow based on patient's clinical course. Time with Patient: Greater than 30
[2022-06-29 09:59] LABS: Estimated Average Glucose CANCELED
[2022-06-29] MEDS: DEXTROSE 5% IN WATER 1,000 ML with SODIUM BICARB (1 MEQ/ML) 150 ML IV SCH (10:55)
[2022-06-29] MEDS: DEXAMETHASONE SOD PHOSPHATE 10 MG/ML 1 ML VIAL IVP SCH (11:01)
[2022-06-29] MEDS: ENOXAPARIN 40 MG/0.4 ML SYRINGE SQ SCH (11:01)
[2022-06-29] MEDS: ZINC SULFATE 220 MG CAP PO SCH (11:23)
[2022-06-29] MEDS: FAMOTIDINE 20 MG TAB PO SCH ×2 (11:23→21:40)
[2022-06-29] MEDS: CHOLECALCIFEROL 25 MCG (1000 IU) TABLET PO SCH (11:23)
[2022-06-29] MEDS: ASCORBIC ACID 500 MG TAB PO SCH (11:23)
[2022-06-29] MEDS: CHLORHEXIDINE GLUCONATE 15 ML CUP MUCOUS MEM SCH ×2 (11:24→21:39)
[2022-06-29] MEDS: ARTIFICIAL TEARS OINTMENT 3.5 GM TUBE BOTH EYES SCH ×3 (11:24→21:41)
[2022-06-29 11:58] LABS: Glucose,Whole Blood 205 mg/dL (70-110)
--- NOTE | 2022-06-29 12:00 | P.PN ---
Subjective Progress Note Date: 06/29/22 Principal diagnosis: Respiratory failure. This is a 61-year-old -[place] male with history of COPD, neuropathy, legally blind, patient came in with just over a week history of productive cough, shortness of breath, and weakness. Apparently his tested positive for COVID-19 infection, and the patient has been feeling run down for the last 1 week at least. Patient was seen in the ER, and he was noted to have positive corneal COVID-19 infection patient was also noted to have an extensive infiltrate in the left lower lobe, and a parapneumonic pleural effusion. U ltrasound of the fluid showed loculation, patient was noted to be hypotensive in the ER, he required placement on norepinephrine. He was given fluid boluses, started on vancomycin and cefepime. Admitted to the ICU, and I was asked to see him on consultation. After evaluating the patient and reviewing the ultrasound of the chest, I recommended interventional radiology evaluation for possible pig tail catheter placement in his left sided loculated pleural effusion. Patient may have a picture of empyema in addition to his pneumonia, patient may have underlying COVID-19 infection. In the meantime the patient is on room air, but he is requiring a small dose of norepinephrine. Received multiple fluid boluses while in the ER. Patient will be seen by interventional radiology, infectious disease, and he will be seen by thoracic surgery on consultation. Patient remains in the ICU, fell off the bed, sustained some left-sided and elbow injuries, but no fractures, x-rays were negative. Patient still on norepinephrine at 0.02 mcg/m remains on IV fluid at 1 25 mL/h remains on antibiotics in the form of cefepime and vancomycin. Hemoglobin dropped today to 6.2 and he will be receiving a unit of packed RBCs, patient was supposed to have a pigtail catheter placement in his loculated pleural effusion yesterday, he refused but he seems to be agreeable to have it done today. Patient is about the same compared to yesterday, nonetheless he is on room air and O2 sats is 97% on room air. WBC count is 12.2 hemoglobin is 6.2 electrolytes are normal renal profile is normal. Blood cultures are negative so far. Pro-calcitonin is 2.6. Today it is 2.04. Patient apparently pulled out his central line yesterday, and I believe the patient will need a PICC line for IV antibiotics may be long-term. Hence we'll arrange for PICC line as well as for pigtail catheter placement today. Reevaluated today 06/27/22, patient remains in the ICU, he developed extreme agitation yesterday, and he was asking for a beer. Patient was pulling all his lines, he even pulled his triple-lumen catheter and his PICC line, now he has mostly peripheral lines in place, he required Precedex yesterday, however he became quite bradycardic, hence did not tolerate Precedex. Patient was placed on the CIWA protocol using Ativan, and apparently at one point early this morning he was almost unresponsive to stimuli. I was notified about the patient, and I recommended immediate intubation of the patient. However according to the nurses before intubation the patient became more arousable and did not require intubation. Today the patient is confused, a bit restless, he is on 3 L nasal cannula, he is also on sodium bicarb drip at 75 mL/h he is also on D5 4 5 at 50 mL per hour he was briefly on norepinephrine 0.02 mcg/m and I have discontinued norepinephrine this morning. Antibiotics gongora patient is on vancomycin and cefepime. Yesterday he had a pigtail catheter placed in his complicated pleural effusion and has been receiving alteplase through the pigtail catheter. ABG today showed a pO2 of 82 pCO2 of 24 pH of 7.42. Patient has a non-anion gap metabolic acidosis. Chloride is 109 renal profile is normal potassium is 3.4. Patient remains in the CIWA protocol. And at this point he chest x-ray is showing worsening of his interstitial infiltrates/COVID-19 pneumonia findings Reevaluated today on 06/28/22, patient remains in the ICU, yesterday the patient's clinical status became worse, he required high flow oxygen, patient remained hypoxic, he was also hypotensive, he went into atrial fibrillation with RVR, required intubation and required amiodarone drip for his atrial fibrillation patient is now back in sinus rhythm. He is still on assist control rate of 20, volume 450 FiO2 is 30%, and PEEP of 5. ABG showed a pO2 of 213 pCO2 27 pH of 7.48 and this was on 50% however the FiO2 was cut down to 30%. CBC showed evidence of leukocytosis with WBC 14.2 hemoglobin 9.1. Basic metabolic profile showed low sodium of 129 low potassium of 3.2 otherwise his labs are unremarkable. Calcium was noted to be low today at 5.9 however the patient had a low albumin of 1.4. Patient will be started on enteral feeding today, and a nutritional consult was initiated. Patient was on heparin yesterday for his atrial fibrillation with RVR however because of his low platelets, and since the patient converted to sinus rhythm, is now off amiodarone, and I recommended Lovenox. A d-dimer is pending. Pigtail catheter remains in place, still draining some serosanguineous fluid from the left pleural space, the mind you patient had loculated pleural effusion along with slightly elevated pro calcit onin and COVID-19 pneumonia. Has been receiving cefepime and vancomycin, blood cultures remain negative. Gram stain on the pleural effusion is negative however there is moderate polymorphonuclear leukocytes in the pleural effusion. Final culture is pending I felt that the effusion was parapneumonic related to underlying left lower lobe pneumonia in addition to his COVID-19 pneumonia Progress note dated 06/29/2022. This is a 61-year-old black male who was admitted on June 24. He came in with coronavirus associated pneumonia, and was intubated for respiratory failure on June 27. He remains on the ventilator. He is on volume assist control, rate 16, tidal volume 400, FiO2 30%, PEEP of 5. Blood gases show pO2 of 133, pCO2 25, and a pH is 7.5. This blood gases consistent with respiratory alkalosis. The patient is currently on propofol at 20 mcg/kg/m, vasopressin at 0.03 units per minute, norepinephrine at 32 mcg/m, D5W with 3 ampules of sodium bicarbonate at 75 mL an hour, and there are note tube feeds. The patient had a left pigtail catheter inserted by interventional radiology on June 26, and had a left chest tube placed on June 28, by my partner. The patient remains on cefepime and vancomycin. White count 14.9, hemoglobin 6.2, hematocrit 17.8, and platelet count 50,000. Sodium 129, potassium 3.7, chlorides 107, CO2 17, anion gap 5, BUN 25, and creatinine 0.71. Cortisol level was only 4. Microbiology is currently negative. Chest x-ray shows a properly placed endotracheal tube, bilateral multifocal airspace opacities, and no appreciable pneumothorax. Objective - Vital Signs Vital signs: Vital Signs Temp 95.9 F L 06/29/22 11:07 Pulse 107 H 06/29/22 11:07 Resp 16 06/29/22 11:07 BP 77/59 06/29/22 11:07 Pulse Ox 95 06/29/22 11:07 FiO2 25 06/29/22 11:17 Intake & Output 06/28/22 06/29/22 06/29/22 18:59 06:59 18:59 Intake Total 3327.023 3406.38 1001.696 Output Total 1970 660 22 Balance 3177.115 2261.38 979.696 Weight 65.5 kg 65.5 kg Intake: IV 1100 825 755 Cefepime 2 gm In Sodium 100 Chloride 0.9% 100 ml @ 25 mls/hr IVPB Q8HR [facility] Rx# :[id number] Dextrose 5% in Water 1, 825 825 375 000 ml @ 75 mls/hr IV . [id number] FELICIA with Sodium Bicarb (1 Meq/ml) 150 ml Rx#:[id number] Dextrose 5%-0.45% NaCl 1, 275 000 ml @ 25 mls/hr IV . Q24H [facility] Rx#:[id number] Sodium Chloride 0.9% 1, 30 000 ml @ 125 mls/hr IV . Q8H [facility] Rx#:[id number] Vancomycin 1,000 mg In 250 Sodium Chloride 0.9% 250 ml @ 125 mls/hr IVPB Q12H [facility] Rx#:[id number] Intake, IV Titration 2227.023 2581.38 246.696 Amount Amiodarone 360 mg In 200 Dextrose 5% in Water 200 ml @ 1 MG/MIN 33.333 mls/ hr IV .Q6H ONE Rx#: [id number] Calcium Gluconate in NaCl 50 2 gm In Saline 1 100ml. bag @ 50 mls/hr IVPB ONCE ONE Rx#:[id number] Cefepime 2 gm In Sodium 100 Chloride 0.9% 100 ml @ 25 mls/hr IVPB Q8HR [facility] Rx# :[id number] Cisatracurium 200 mg In 9.825 Sodium Chloride 0.9% 180 ml @ 2 MCG/KG/MIN 7.86 mls/hr IV .Q24H [facility] Rx#: [id number] Magnesium Sulfate-D5w Pmx 200 1 gm In Dextrose/Water 1 100ml.bag @ 100 mls/hr IVPB Q1H [facility] Rx#: [id number] Norepinephrine 4 mg In 443.563 Sodium Chloride 0.9% 250 ml @ 0.03 MCG/KG/MIN 6. 012 mls/hr IV .Q24H [facility] Rx#:[id number] Norepinephrine 8 mg In 204.814 481.38 228.073 Sodium Chloride 0.9% 250 ml @ 0.03 MCG/KG/MIN 3. 518 mls/hr IV .Q24H [facility] Rx#:[id number] Sodium Chloride 0.9% 1, 1000 000 ml @ 999 mls/hr IV . Q1H1M ONE Rx#:[id number] Sodium Chloride 0.9% 1, 2000 000 ml @ 999 mls/hr IV . Q1H1M ONE Rx#:[id number] Vasopressin 20 unit In 8.798 Sodium Chloride 0.9% 50 ml @ 0.03 UNITS/MIN 4.59 mls/hr IV .Q11H7M [facility] Rx# :[id number] propofoL 1,000 mg In 28.646 100 Empty Bag 1 bag @ 15 MCG/ KG/MIN 5.283 mls/hr IV . [id number] [facility] Rx#:[id number] Blood Product 0 Rc As-1 Unit 0 [id number] Output: Chest Tube Drainage 1800 600 Left Upper Anterior Chest 600 200 left posterior chest 1200 400 Urine 170 60 22 Other: Voiding Method Indwelling Catheter Indwelling Catheter ABP, PAP, CO, CI - Last Documented Arterial Blood Pressure 75/57 - Exam No acute distress, sedated on propofol, with an orally placed endotracheal tube. HEENT examination is grossly unremarkable. Neck supple. Full range of motion. No adenopathy thyromegaly or neck vein distention. Cardiovascular examination reveals regular rhythm rate. S1-S2 normal. No S3 or S4. No discernible murmur noted. Heart sounds are distant. Heart rate 107 bp m. Lungs reveal coarse bilateral rhonchi. Breath sounds are diminished on the left. No wheezes. No crackles. The patient has a left-sided chest tube with a leak, and a left posterior pigtail catheter. Abdomen soft, without bowel sounds. Extremities are intact. No cyanosis clubbing or edema. Skin is without rash or lesion. Neurologic examination cannot be adequately assessed. - Labs CBC & Chem 7: 06/29/22 05:20 06/29/22 05:45 Labs: Abnormal Lab Results - Last 24 Hours (Table) 06/26/22 06/28/22 06/28/22 Range/Units 06:26 11:30 11:30 WBC (3.8-10.6) k/uL RBC (4.30-5.90) m/uL Hgb (13.0-17.5) gm/dL Hct (39.0-53.0) % RDW (11.5-15.5) % Plt Count (150-450) k/uL Neutrophils # (Manual) (1.3-7.7) k/uL Monocytes # (Manual) (0-1.0) k/uL Myelocytes # (Manual) (0) k/uL Nucleated RBCs (0-0) /100 WBC D-Dimer (<0.60) mg/L FEU ABG pH (7.35-7.45) ABG pCO2 (35-45) mmHg ABG pO2 (83-108) mmHg ABG HCO3 (21-25) mmol/L ABG O2 Saturation (94-97) % Sodium 129 L (137-145) mmol/L Carbon Dioxide 19 L (22-30) mmol/L BUN 24 H (9-20) mg/dL Creatinine 0.52 L (0.66-1.25) mg/dL Glucose 138 H (74-99) mg/dL POC Glucose (mg/dL) (70-110) mg/dL Calcium 5.9 L* (8.4-10.2) mg/dL Ionized Calcium Ken 4.1 L (4.5-5.3) mg/dL Total Protein (6.3-8.2) g/dL Albumin (3.5-5.0) g/dL Crossmatch See Detail 06/28/22 06/28/22 06/29/22 Range/Units 12:05 17:14 00:20 WBC (3.8-10.6) k/uL RBC (4.30-5.90) m/uL Hgb (13.0-17.5) gm/dL Hct (39.0-53.0) % RDW (11.5-15.5) % Plt Count (150-450) k/uL Neutrophils # (Manual) (1.3-7.7) k/uL Monocytes # (Manual) (0-1.0) k/uL Myelocytes # (Manual) (0) k/uL Nucleated RBCs (0-0) /100 WBC D-Dimer 6.95 H (<0.60) mg/L FEU ABG pH (7.35-7.45) ABG pCO2 (35-45) mmHg ABG pO2 (83-108) mmHg ABG HCO3 (21-25) mmol/L ABG O2 Saturation (94-97) % Sodium (137-145) mmol/L Carbon Dioxide (22-30) mmol/L BUN (9-20) mg/dL Creatinine (0.66-1.25) mg/dL Glucose (74-99) mg/dL POC Glucose (mg/dL) 140 H 128 H (70-110) mg/dL Calcium (8.4-10.2) mg/dL Ionized Calcium Ken (4.5-5.3) mg/dL Total Protein (6.3-8.2) g/dL Albumin (3.5-5.0) g/dL Crossmatch 06/29/22 06/29/22 06/29/22 Range/Units 05:20 05:21 05:45 WBC 14.9 H (3.8-10.6) k/uL RBC 1.91 L (4.30-5.90) m/uL Hgb 6.2 L* D (13.0-17.5) gm/dL Hct 17.8 L* (39.0-53.0) % RDW 16.6 H (11.5-15.5) % Plt Count 58 L (150-450) k/uL Neutrophils # (Manual) 12.20 H (1.3-7.7) k/uL Monocytes # (Manual) 1.19 H (0-1.0) k/uL Myelocytes # (Manual) 0.15 H (0) k/uL Nucleated RBCs 16 H (0-0) /100 WBC D-Dimer (<0.60) mg/L FEU ABG pH 7.50 H (7.35-7.45) ABG pCO2 25 L (35-45) mmHg ABG pO2 133 H (83-108) mmHg ABG HCO3 19 L (21-25) mmol/L ABG O2 Saturation 100.0 H (94-97) % Sodium (137-145) mmol/L Carbon Dioxide (22-30) mmol/L BUN (9-20) mg/dL Creatinine (0.66-1.25) mg/dL Glucose (74-99) mg/dL POC Glucose (mg/dL) 178 H (70-110) mg/dL Calcium (8.4-10.2) mg/dL Ionized Calcium Ken (4.5-5.3) mg/dL Total Protein (6.3-8.2) g/dL Albumin (3.5-5.0) g/dL Crossmatch 06/29/22 06/29/22 06/29/22 Range/Units 05:45 05:46 08:25 WBC (3.8-10.6) k/uL RBC (4.30-5.90) m/uL Hgb (13.0-17.5) gm/dL Hct (39.0-53.0) % RDW (11.5-15.5) % Plt Count (150-450) k/uL Neutrophils # (Manual) (1.3-7.7) k/uL Monocytes # (Manual) (0-1.0) k/uL Myelocytes # (Manual) (0) k/uL Nucleated RBCs (0-0) /100 WBC D-Dimer (<0.60) mg/L FEU ABG pH (7.35-7.45) ABG pCO2 (35-45) mmHg ABG pO2 (83-108) mmHg ABG HCO3 (21-25) mmol/L ABG O2 Saturation (94-97) % Sodium 129 L (137-145) mmol/L Carbon Dioxide 17 L (22-30) mmol/L BUN 25 H (9-20) mg/dL Creatinine (0.66-1.25) mg/dL Glucose 143 H (74-99) mg/dL POC Glucose (mg/dL) 191 H (70-110) mg/dL Calcium 4.8 L* (8.4-10.2) mg/dL Ionized Calcium Ken (4.5-5.3) mg/dL Total Protein 3.0 L (6.3-8.2) g/dL Albumin 1.1 L (3.5-5.0) g/dL Crossmatch See Detail Microbiology - Last 24 Hours (Table) 06/27/22 21:40 Gram Stain - Preliminary Sputum Sputum Culture - Preliminary 06/26/22 11:55 Gram Stain - Preliminary Pleural Fluid Body Fluid Culture - Preliminary 06/24/22 19:55 Blood Culture - Preliminary Blood No Growth after 96 hours 06/24/22 19:36 Blood Culture - Preliminary Blood No Growth after 96 hours 06/26/22 11:55 Anaerobic Culture - Preliminary Pleural Fluid Assessment and Plan Assessment: Sepsis, septic shock, likely secondary to left lower lobe pneumonia and complicated pleural effusion, status post pigtail catheter placement, on June 26, and left chest tube placement, on June 28. Status post intubation, and mechanical ventilation, for respiratory failure, on 06/27/2022. Left lower lobe pneumonia with complicated parapneumonic effusion. Coronavirus infection. History of COPD. Severe hypotension, secondary to septic shock. Probable acute adrenal insufficiency with a cortisol level of 4. Gen. medical debility. Plan: Plan dated 06/29/2022. The patient's FiO2 is dropped to 25%. The patient will get Nimbex 10 mg IV push, and a Nimbex drip at 2 mcg/kg/m. The patient be started on tube feedings. We will do [id number] monitoring. We will get a stat cortisol level and TSH. The patient will get 1 unit of packed red blood cells. The patient will be started on hydrocortisone, 50 mg IV push, every 6 hours, after initial dose of 100 mg IV push. His overall prognosis remains poor. Labs, x-rays, and medications are reviewed. The patient's vasopressin can be increased to 0.04 units per minute, and norepinephrine can be increased to 1 mcg/kg/m. Additional orders will be given along the way. Time with Patient: Greater than 30
[2022-06-29] MEDS ORDERED: HYDROCORTISONE SUCCINATE 100 MG/2 ML VIAL IV STA (12:08)
[2022-06-29 14:46] LABS: HCT 30.6 % (39.0-53.0); Hypochromasia Slight; MCH 32.3 pg (25.0-35.0); MCHC 34.1 g/dL (31.0-37.0); MCV 94.6 fL (80.0-100.0); Mean Platelet Volume 13.4; Poikilocytosis Slight; RBC 3.24 m/uL (4.30-5.90); RDW 15.9 % (11.5-15.5); WBC 27.8 k/uL (3.8-10.6)
[2022-06-29 15:17] LABS: HGB 10.5 gm/dL (13.0-17.5); Platelet Count 68 k/uL (150-450)
[2022-06-29] MEDS ORDERED: LACTATED RINGERS 2,000 ML IV SCH (16:00)
[2022-06-29] MEDS: THIAMINE 100 MG TAB PO SCH (16:30)
[2022-06-29] MEDS: HYDROCORTISONE SUCCINATE 100 MG/2 ML VIAL IV SCH (17:34)
[2022-06-29 17:37] LABS: Glucose,Whole Blood 163 mg/dL (70-110)
--- NOTE | 2022-06-29 23:28 | P.PN ---
Subjective Progress Note Date: 06/26/22 Patient is a 61-year-old male with a known history of COPD, peripheral neuropathy nondiabetic, legally blind and history of carpal tunnel syndrome and currently everyday smoker presents to ER with complaints of cough generalized weakness and shortness of breath for the past 1 week.. Afebrile on admission. No complaints of chest pain. No nausea vomiting abdominal pain or diarrhea. Chest x-ray showed there is a left lower lobe pneumonia and left pleural effusion which is new compared to old exam. Repeat chest x-ray this morning showed small left pleural effusion with left lower lobe infiltrate. Correlate for pneumonia. EKG showed sinus tachycardia with frequent supraventricular complexes. Chest ultrasound showed complex loculated fluid collections left posterior lung. Patient was also hypotensive and requiring pressor support. Laboratory test showed WBC 11.1 hemoglobin 10.4 and platelets 142 INR 1.3 Sodium 130 potassium 4.1 chloride 103 bicarb is 16 BUN 21 and creatinine 0.84 Lactic acidosis with level 5.0 and calcium 7.6 and proBNP 5020 Coronavirus PCR detected. 06/26/2022 Patient in MICU. Patient fell of the bed and sustained left-sided elbow injuries. No fractures on x-rays noted. Awake patient remains pressor support and IV hydration antibiotics at home of vancomycin and cefepime. Hemoglobin dropped to 6.2 today. Undergoing transfusion PRBC. Currently on room air. Plan to get IR guided pigtail catheter placement. Laboratory showed WBC 12.2, hemoglobin 6.2 MCV 100.2 and platelets 140 Sodium 133 potassium 4.0 chloride 101 bicarb is 12 BUN 28 and creatinine 0.6 sodium 133 potassium 4.0 chloride 101 bicarb is 12 BUN 28 and creatinine 0.6. Procalcitonin level is 2.04 Pulmonary, ID and CT surgery is on board. Current medications reviewed. Objective - Vital Signs Vital signs: Vital Signs Temp 96.6 F L 06/26/22 20:00 Pulse 71 06/26/22 22:00 Resp 17 06/26/22 22:00 BP 95/44 06/26/22 22:00 Pulse Ox 100 06/26/22 22:00 FiO2 21 06/25/22 03:07 Intake & Output 06/26/22 06/26/22 06/27/22 06:59 18:59 06:59 Intake Total 1775 2318.656 470.080 Output Total 360 665 225 Balance 1415 1653.656 245.080 Weight 57.7 kg 57.7 kg Intake: IV 1375 1500 425 Dextrose 5% in Water 1, 150 000 ml @ 75 mls/hr IV . [id number] FELICIA with Sodium Bicarb (1 Meq/ml) 150 ml Rx#:[id number] Dextrose 5%-0.45% NaCl 1, 100 000 ml @ 50 mls/hr IV . Q20H FELICIA Rx#:[id number] Norepinephrine 4 mg In 50 Sodium Chloride 0.9% 250 ml @ 0.03 MCG/KG/MIN 6. 012 mls/hr IV .Q24H [facility] Rx#:[id number] Sodium Chloride 0.9% 1, 1375 1500 125 000 ml @ 125 mls/hr IV . Q8H [facility] Rx#:[id number] Intake, IV Titration 8.656 45.080 Amount Dexmedetomidine/0.9% NaCl 8.656 45.080 (Pmx) 400 mcg In Empty Bag 1 bag @ 1.2 MCG/KG/HR 17.31 mls/hr IV .Q5H47M FELICIA Rx#:[id number] Oral 400 500 Blood Product 310 Rc As-1 Unit 310 [id number] Output: Chest Tube Drainage 110 left posterior chest 110 Drainage 400 Left Posterior Chest 400 Urine 360 265 115 Other: Voiding Method External Catheter Incontinent Indwelling Catheter # Voids 1 1 - Exam PHYSICAL EXAMINATION: Patient is lying in the bed. Awake alert. Seems chronically Daily. HEENT: Normocephalic. Neck is supple. Pupils reactive. Nostrils clear. Oral cavity is moist. Neck reveals no JVD, carotid bruits, or thyromegaly. CHEST EXAMINATION: Trachea is central. Symmetrical expansion. Basilar crackles. Nonlabored breathing. No wheezing.. CARDIAC: Normal S1, S2 with no gallops. No murmurs ABDOMEN: Soft. Bowel sounds present. Nontender. No organomegaly. No abdominal bruits. Extremities: reveal no edema. No clubbing or cyanosis Neurologically awake, alert, oriented x3 with well-coordinated movements. No focal deficits noted Skin: No rash or skin lesions. Psychiatric: Coperative. Nonsuicidal, Musculoskeletal: No joint swelling or deformity. Normal range of motion. - Labs CBC & Chem 7: 06/29/22 14:36 06/29/22 05:45 Labs: Abnormal Lab Results - Last 24 Hours (Table) 06/26/22 06/26/22 06/26/22 Range/Units 04:30 04:30 04:30 WBC 12.2 H (3.8-10.6) k/uL RBC 1.89 L (4.30-5.90) m/uL Hgb 6.2 L* D (13.0-17.5) gm/dL Hct 19.0 L* (39.0-53.0) % MCV 100.2 H (80.0-100.0) fL RDW (11.5-15.5) % Plt Count 140 L (150-450) k/uL Neutrophils # 10.1 H (1.3-7.7) k/uL ABG pH (7.35-7.45) ABG pCO2 (35-45) mmHg ABG HCO3 (21-25) mmol/L ABG Total CO2 (19-24) mmol/L ABG O2 Saturation (94-97) % Sodium 133 L (137-145) mmol/L Chloride 111 H (98-107) mmol/L Carbon Dioxide 12 L (22-30) mmol/L BUN 28 H (9-20) mg/dL Creatinine 0.60 L (0.66-1.25) mg/dL Glucose 116 H (74-99) mg/dL Calcium 7.2 L (8.4-10.2) mg/dL Lactate Dehydrogenase 673 H (313-618) U/L Total Protein 4.6 L (6.3-8.2) g/dL Albumin 1.8 L (3.5-5.0) g/dL Procalcitonin 2.04 H (0.02-0.09) ng/mL Crossmatch 06/26/22 06/26/22 06/26/22 Range/Units 06:26 12:50 19:25 WBC (3.8-10.6) k/uL RBC 2.91 L (4.30-5.90) m/uL Hgb 9.2 L D (13.0-17.5) gm/dL Hct 28.1 L (39.0-53.0) % MCV (80.0-100.0) fL RDW 16.3 H (11.5-15.5) % Plt Count 107 L (150-450) k/uL Neutrophils # (1.3-7.7) k/uL ABG pH 7.29 L (7.35-7.45) ABG pCO2 16 L* (35-45) mmHg ABG HCO3 8 L* (21-25) mmol/L ABG Total CO2 8 L (19-24) mmol/L ABG O2 Saturation 98.0 H (94-97) % Sodium (137-145) mmol/L Chloride (98-107) mmol/L Carbon Dioxide (22-30) mmol/L BUN (9-20) mg/dL Creatinine (0.66-1.25) mg/dL Glucose (74-99) mg/dL Calcium (8.4-10.2) mg/dL Lactate Dehydrogenase (313-618) U/L Total Protein (6.3-8.2) g/dL Albumin (3.5-5.0) g/dL Procalcitonin (0.02-0.09) ng/mL Crossmatch See Detail Microbiology - Last 24 Hours (Table) 06/26/22 11:55 Anaerobic Culture - Preliminary Pleural Fluid 06/26/22 11:55 Body Fluid Culture - Preliminary Pleural Fluid 06/24/22 19:36 Blood Culture - Preliminary Blood No Growth after 24 hours 06/24/22 19:55 Blood Culture - Preliminary Blood No Growth after 24 hours Assessment and Plan Assessment: Septic shock requiring pressor support with Levophed. Left lower lobe pneumonia with loculated pleural effusion possible parapneumonic COVID-19 infection with symptoms x1 week Hypovolemic hyponatremia Lactic acidosis COPD Legally blind Currently everyday smoker DVT prophylaxis with Lovenox subcu Patient will be continued on IV hydration and broad-spectrum antibiotics in the form of vancomycin and cefepime. CT surgery and interventional radiology was consulted due to loculated pleural effusion and possible pigtail catheter placement. Follow-up culture report. Continue with duo nebs and follow-up closely. Pulmonary is on board. Prognosis is guarded. Time with Patient: Greater than 30
--- NOTE | 2022-06-29 23:34 | P.PN ---
Subjective Progress Note Date: 06/27/22 Patient is a 61-year-old male with a known history of COPD, peripheral neuropathy nondiabetic, legally blind and history of carpal tunnel syndrome and currently everyday smoker presents to ER with complaints of cough generalized weakness and shortness of breath for the past 1 week.. Afebrile on admission. No complaints of chest pain. No nausea vomiting abdominal pain or diarrhea. Chest x-ray showed there is a left lower lobe pneumonia and left pleural effusion which is new compared to old exam. Repeat chest x-ray this morning showed small left pleural effusion with left lower lobe infiltrate. Correlate for pneumonia. EKG showed sinus tachycardia with frequent supraventricular complexes. Chest ultrasound showed complex loculated fluid collections left posterior lung. Patient was also hypotensive and requiring pressor support. Laboratory test showed WBC 11.1 hemoglobin 10.4 and platelets 142 INR 1.3 Sodium 130 potassium 4.1 chloride 103 bicarb is 16 BUN 21 and creatinine 0.84 Lactic acidosis with level 5.0 and calcium 7.6 and proBNP 5020 Coronavirus PCR detected. 06/26/2022 Patient in MICU. Patient fell of the bed and sustained left-sided elbow injuries. No fractures on x-rays noted. Awake patient remains pressor support and IV hydration antibiotics at home of vancomycin and cefepime. Hemoglobin dropped to 6.2 today. Undergoing transfusion PRBC. Currently on room air. Plan to get IR guided pigtail catheter placement. Laboratory showed WBC 12.2, hemoglobin 6.2 MCV 100.2 and platelets 140 Sodium 133 potassium 4.0 chloride 101 bicarb is 12 BUN 28 and creatinine 0.6 sodium 133 potassium 4.0 chloride 101 bicarb is 12 BUN 28 and creatinine 0.6. Procalcitonin level is 2.04 Pulmonary, ID and CT surgery is on board. 06/27/2022 Patient is in the MICU. Patient was agitated and pulling out lines yesterday and was requiring Precedex drip and also alcohol withdrawal protocol. Today morning he was almost unresponsive stimuli and was intubated as recommended pulmonary. Patient is on bicarb drip was briefly on norepinephrine. Patient remains on antibiotics in the form of vancomycin and cefepime. Afebrile. Patient is status post pigtail catheter on 06/26/2022. Laboratory data showed WBC 9.7 hemoglobin 9.0 and platelets 75 Sodium 130 potassium 3.4 chloride 109 bicarb is 15 BUN 29 creatinine 0.41 blood sugar 205 and magnesium 1.6 and albumin 1.4 Current medications reviewed. Objective - Vital Signs Vital signs: Vital Signs Temp 97.8 F 06/27/22 12:00 Pulse 74 06/27/22 12:00 Resp 28 H 06/27/22 12:00 BP 93/80 06/27/22 12:00 Pulse Ox 97 06/27/22 12:00 FiO2 21 06/25/22 03:07 Intake & Output 06/26/22 06/27/22 06/27/22 18:59 06:59 18:59 Intake Total 2318.656 1576.530 625 Output Total 665 455 165 Balance 1327.260 4913.530 460 Weight 57.7 kg 58.7 kg Intake: IV 1500 1425 625 Dextrose 5% in Water 1, 750 450 000 ml @ 75 mls/hr IV . [id number] [facility] with Sodium Bicarb (1 Meq/ml) 150 ml Rx#:[id number] Dextrose 5%-0.45% NaCl 1, 500 175 000 ml @ 25 mls/hr IV . Q24H [facility] Rx#:[id number] Norepinephrine 4 mg In 50 Sodium Chloride 0.9% 250 ml @ 0.03 MCG/KG/MIN 6. 012 mls/hr IV .Q24H [facility] Rx#:[id number] Sodium Chloride 0.9% 1, 1500 125 000 ml @ 125 mls/hr IV . Q8H [facility] Rx#:[id number] Intake, IV Titration 8.656 151.530 Amount Dexmedetomidine/0.9% NaCl 8.656 53.735 (Pmx) 400 mcg In Empty Bag 1 bag @ 1.2 MCG/KG/HR 17.31 mls/hr IV .Q5H47M [facility] Rx#:[id number] Norepinephrine 4 mg In 97.795 Sodium Chloride 0.9% 250 ml @ 0.03 MCG/KG/MIN 6. 012 mls/hr IV .Q24H [facility] Rx#:[id number] Oral 500 Blood Product 310 Rc As-1 Unit 310 [id number] Output: Chest Tube Drainage 110 left posterior chest 110 Drainage 400 120 Left Posterior Chest 400 120 Urine 265 225 165 Other: Voiding Method Incontinent Indwelling Catheter Indwelling Catheter # Voids 1 - Exam PHYSICAL EXAMINATION: Patient is sedated and on mechanical ventilator. HEENT: Normocephalic. Neck is supple. Pupils reactive. Nostrils clear. Oral cavity is moist. Neck reveals no JVD, carotid bruits, or thyromegaly. CHEST EXAMINATION: Trachea is central. Symmetrical expansion. Left basilar crackles and pigtail catheter in place. No wheezing.. CARDIAC: Normal S1, S2 with no gallops. No murmurs ABDOMEN: Soft. Bowel sounds present. Nontender. No organomegaly. No abdominal bruits. Extremities: reveal no edema. No clubbing or cyanosis Neurologically. Patient is sedated and intubated. No gross focal deficits noted Skin: No rash or skin lesions. Psychiatric: Could not be assessed., Musculoskeletal: No joint swelling or deformity. - Labs CBC & Chem 7: 06/29/22 14:36 06/29/22 05:45 Labs: Abnormal Lab Results - Last 24 Hours (Table) 06/26/22 06/26/22 06/27/22 Range/Units 12:50 19:25 00:12 RBC 2.91 L (4.30-5.90) m/uL Hgb 9.2 L D (13.0-17.5) gm/dL Hct 28.1 L (39.0-53.0) % RDW 16.3 H (11.5-15.5) % Plt Count 107 L (150-450) k/uL Neutrophils # (Manual) (1.3-7.7) k/uL Lymphocytes # (Manual) (1.0-4.8) k/uL ABG pH 7.29 L (7.35-7.45) ABG pCO2 16 L* (35-45) mmHg ABG pO2 (83-108) mmHg ABG HCO3 8 L* (21-25) mmol/L ABG Total CO2 8 L (19-24) mmol/L ABG O2 Saturation 98.0 H (94-97) % Sodium (137-145) mmol/L Potassium (3.5-5.1) mmol/L Chloride (98-107) mmol/L Carbon Dioxide (22-30) mmol/L BUN (9-20) mg/dL Creatinine (0.66-1.25) mg/dL Glucose (74-99) mg/dL POC Glucose (mg/dL) 212 H (70-110) mg/dL Calcium (8.4-10.2) mg/dL AST (17-59) U/L Total Protein (6.3-8.2) g/dL Albumin (3.5-5.0) g/dL 06/27/22 06/27/22 06/27/22 Range/Units 00:19 04:19 04:19 RBC 2.82 L (4.30-5.90) m/uL Hgb 9.0 L (13.0-17.5) gm/dL Hct 28.1 L (39.0-53.0) % RDW 16.8 H (11.5-15.5) % Plt Count 75 L (150-450) k/uL Neutrophils # (Manual) 9.10 H (1.3-7.7) k/uL Lymphocytes # (Manual) 0.19 L (1.0-4.8) k/uL ABG pH (7.35-7.45) ABG pCO2 24 L (35-45) mmHg ABG pO2 82 L (83-108) mmHg ABG HCO3 15 L (21-25) mmol/L ABG Total CO2 16 L (19-24) mmol/L ABG O2 Saturation 93.9 L (94-97) % Sodium 130 L (137-145) mmol/L Potassium 3.4 L (3.5-5.1) mmol/L Chloride 109 H (98-107) mmol/L Carbon Dioxide 15 L (22-30) mmol/L BUN 29 H (9-20) mg/dL Creatinine 0.42 L (0.66-1.25) mg/dL Glucose 205 H (74-99) mg/dL POC Glucose (mg/dL) (70-110) mg/dL Calcium 6.5 L (8.4-10.2) mg/dL AST 60 H (17-59) U/L Total Protein 3.9 L (6.3-8.2) g/dL Albumin 1.4 L (3.5-5.0) g/dL 06/27/22 06/27/22 Range/Units 05:44 11:31 RBC (4.30-5.90) m/uL Hgb (13.0-17.5) gm/dL Hct (39.0-53.0) % RDW (11.5-15.5) % Plt Count (150-450) k/uL Neutrophils # (Manual) (1.3-7.7) k/uL Lymphocytes # (Manual) (1.0-4.8) k/uL ABG pH (7.35-7.45) ABG pCO2 (35-45) mmHg ABG pO2 (83-108) mmHg ABG HCO3 (21-25) mmol/L ABG Total CO2 (19-24) mmol/L ABG O2 Saturation (94-97) % Sodium (137-145) mmol/L Potassium (3.5-5.1) mmol/L Chloride (98-107) mmol/L Carbon Dioxide (22-30) mmol/L BUN (9-20) mg/dL Creatinine (0.66-1.25) mg/dL Glucose (74-99) mg/dL POC Glucose (mg/dL) 273 H 230 H (70-110) mg/dL Calcium (8.4-10.2) mg/dL AST (17-59) U/L Total Protein (6.3-8.2) g/dL Albumin (3.5-5.0) g/dL Microbiology - Last 24 Hours (Table) 06/26/22 11:55 Gram Stain - Preliminary Pleural Fluid Body Fluid Culture - Preliminary 06/24/22 19:36 Blood Culture - Preliminary Blood No Growth after 48 hours 06/24/22 19:55 Blood Culture - Preliminary Blood No Growth after 48 hours 06/26/22 11:55 Anaerobic Culture - Preliminary Pleural Fluid Assessment and Plan Assessment: Septic shock requiring pressor support with Levophed.Secondary to left lower lobe pneumonia a complicated with pleural effusion status post pigtail catheter placement. Left lower lobe pneumonia with loculated pleural effusion possible parapneumonic COVID-19 infection with symptoms x1 week Hypovolemic hyponatremia Lactic acidosis COPD Legally blind Currently everyday smoker DVT prophylaxis with Lovenox subcu Plan: Patient is currently intubated and on mechanical ventilator. Remains on antibiotics in the form of vancomycin and cefepime. Status post pigtail catheter placement by interventional radiology. Follow-up culture reports. Patient is being continued on duo nebs and follow-up closely. Prognosis is guarded. Pulmonary and ID and CT surgery is on board Time with Patient: Greater than 30
--- NOTE | 2022-06-29 23:37 | P.PN ---
Subjective Progress Note Date: 06/28/22 Patient is a 61-year-old male with a known history of COPD, peripheral neuropathy nondiabetic, legally blind and history of carpal tunnel syndrome and currently everyday smoker presents to ER with complaints of cough generalized weakness and shortness of breath for the past 1 week.. Afebrile on admission. No complaints of chest pain. No nausea vomiting abdominal pain or diarrhea. Chest x-ray showed there is a left lower lobe pneumonia and left pleural effusion which is new compared to old exam. Repeat chest x-ray this morning showed small left pleural effusion with left lower lobe infiltrate. Correlate for pneumonia. EKG showed sinus tachycardia with frequent supraventricular complexes. Chest ultrasound showed complex loculated fluid collections left posterior lung. Patient was also hypotensive and requiring pressor support. Laboratory test showed WBC 11.1 hemoglobin 10.4 and platelets 142 INR 1.3 Sodium 130 potassium 4.1 chloride 103 bicarb is 16 BUN 21 and creatinine 0.84 Lactic acidosis with level 5.0 and calcium 7.6 and proBNP 5020 Coronavirus PCR detected. 06/26/2022 Patient in MICU. Patient fell of the bed and sustained left-sided elbow injuries. No fractures on x-rays noted. Awake patient remains pressor support and IV hydration antibiotics at home of vancomycin and cefepime. Hemoglobin dropped to 6.2 today. Undergoing transfusion PRBC. Currently on room air. Plan to get IR guided pigtail catheter placement. Laboratory showed WBC 12.2, hemoglobin 6.2 MCV 100.2 and platelets 140 Sodium 133 potassium 4.0 chloride 101 bicarb is 12 BUN 28 and creatinine 0.6 sodium 133 potassium 4.0 chloride 101 bicarb is 12 BUN 28 and creatinine 0.6. Procalcitonin level is 2.04 Pulmonary, ID and CT surgery is on board. 06/27/2022 Patient is in the MICU. Patient was agitated and pulling out lines yesterday and was requiring Precedex drip and also alcohol withdrawal protocol. Today morning he was almost unresponsive stimuli and was intubated as recommended pulmonary. Patient is on bicarb drip was briefly on norepinephrine. Patient remains on antibiotics in the form of vancomycin and cefepime. Afebrile. Patient is status post pigtail catheter on 06/26/2022. Laboratory data showed WBC 9.7 hemoglobin 9.0 and platelets 75 Sodium 130 potassium 3.4 chloride 109 bicarb is 15 BUN 29 creatinine 0.41 blood sugar 205 and magnesium 1.6 and albumin 1.4 06/28/2022 Patient remains in the MICU. Pulm Ventilator with assist control FiO2 30% and PEEP of 5 and tidal volume 450. Patient has been hypotensive and went into A. fib with RVR. Converted to sinus rhythm and off amiodarone drip. Patient is being current antibiotics and all vancomycin and cefepime. Pigtail catheter is in place and is draining serosanguineous fluid from the left pleural space. Blood culture have been negative. Pleural fluid cultures pending. Laboratory pressure WBC 9.7 hemoglobin 9.0 and platelets 75 Sodium 130 potassium 3.4 chloride 109 bicarb is 15 BUN 29 and creatinine 0.49 calcium 6.5 magnesium 1.6 and albumin 1.5 Current medications reviewed. Objective - Vital Signs Vital signs: Vital Signs Temp 97.9 F 06/28/22 08:00 Pulse 80 06/28/22 10:00 Resp 95 H 06/28/22 10:00 BP 88/56 06/27/22 19:00 Pulse Ox 98 06/28/22 10:00 FiO2 30 06/28/22 11:05 Intake & Output 06/27/22 06/28/22 06/28/22 18:59 06:59 18:59 Intake Total 1551.481 4177.571 779.051 Output Total 285 180 35 Balance 326.875 8725.571 744.051 Weight 60.6 kg Intake: IV 1225 1200 200 Dextrose 5% in Water 1, 900 900 150 000 ml @ 75 mls/hr IV . [id number] [facility] with Sodium Bicarb (1 Meq/ml) 150 ml Rx#:[id number] Dextrose 5%-0.45% NaCl 1, 325 300 50 000 ml @ 25 mls/hr IV . Q24H [facility] Rx#:[id number] Intake, IV Titration 22.979 967.571 579.051 Amount Calcium Gluconate in NaCl 50 2 gm In Saline 1 100ml. bag @ 50 mls/hr IVPB ONCE ONE Rx#:[id number] Cefepime 2 gm In Sodium 100 Chloride 0.9% 100 ml @ 25 mls/hr IVPB Q8HR [facility] Rx# :[id number] Magnesium Sulfate-D5w Pmx 200 1 gm In Dextrose/Water 1 100ml.bag @ 100 mls/hr IVPB Q1H [facility] Rx#: [id number] Norepinephrine 4 mg In 22.979 655.261 200.405 Sodium Chloride 0.9% 250 ml @ 0.03 MCG/KG/MIN 6. 012 mls/hr IV .Q24H [facility] Rx#:[id number] Vancomycin 750 mg In 250 Sodium Chloride 0.9% 250 ml @ 125 mls/hr IVPB Q12H [facility] Rx#:[id number] propofoL 1,000 mg In 62.310 28.646 Empty Bag 1 bag @ 15 MCG/ KG/MIN 5.283 mls/hr IV . [id number] [facility] Rx#:[id number] Output: Urine 285 180 35 Other: Voiding Method Indwelling Catheter Indwelling Catheter Indwelling Catheter ABP, PAP, CO, CI - Last Documented Arterial Blood Pressure 84/60 - Exam PHYSICAL EXAMINATION: Patient is sedated and on mechanical ventilator. HEENT: Normocephalic. Neck is supple. Pupils reactive. Nostrils clear. Oral c avity is moist. Neck reveals no JVD, carotid bruits, or thyromegaly. CHEST EXAMINATION: Trachea is central. Symmetrical expansion. Left basilar crackles and pigtail catheter in place. No wheezing.. CARDIAC: Normal S1, S2 with no gallops. No murmurs ABDOMEN: Soft. Bowel sounds present. Nontender. No organomegaly. No abdominal bruits. Extremities: reveal no edema. No clubbing or cyanosis Neurologically. Patient is sedated and intubated. No gross focal deficits noted Skin: No rash or skin lesions. Psychiatric: Could not be assessed., Musculoskeletal: No joint swelling or deformity. - Labs CBC & Chem 7: 06/29/22 14:36 06/29/22 05:45 Labs: Abnormal Lab Results - Last 24 Hours (Table) 06/27/22 06/28/22 06/28/22 Range/Units 20:07 00:13 05:17 WBC (3.8-10.6) k/uL RBC (4.30-5.90) m/uL Hgb (13.0-17.5) gm/dL Hct (39.0-53.0) % RDW (11.5-15.5) % Plt Count (150-450) k/uL Neutrophils # (Manual) (1.3-7.7) k/uL Metamyelocytes # (Man) (0) k/uL Myelocytes # (Manual) (0) k/uL Nucleated RBCs (0-0) /100 WBC ABG pH 7.48 H (7.35-7.45) ABG pCO2 29 L 27 L (35-45) mmHg ABG pO2 >400 H 213 H (83-108) mmHg ABG HCO3 18 L 20 L (21-25) mmol/L ABG O2 Saturation 100.0 H 100.0 H (94-97) % Sodium (137-145) mmol/L Potassium (3.5-5.1) mmol/L Carbon Dioxide (22-30) mmol/L BUN (9-20) mg/dL Creatinine (0.66-1.25) mg/dL Glucose (74-99) mg/dL POC Glucose (mg/dL) 170 H (70-110) mg/dL Calcium (8.4-10.2) mg/dL Ionized Calcium Ken (4.5-5.3) mg/dL Total Protein (6.3-8.2) g/dL Albumin (3.5-5.0) g/dL 06/28/22 06/28/22 06/28/22 Range/Units 05:34 05:35 05:35 WBC 14.2 H (3.8-10.6) k/uL RBC 2.92 L (4.30-5.90) m/uL Hgb 9.1 L (13.0-17.5) gm/dL Hct 27.1 L (39.0-53.0) % RDW 16.9 H (11.5-15.5) % Plt Count 79 L (150-450) k/uL Neutrophils # (Manual) 11.50 H (1.3-7.7) k/uL Metamyelocytes # (Man) 0.14 H (0) k/uL Myelocytes # (Manual) 0.14 H (0) k/uL Nucleated RBCs 7 H (0-0) /100 WBC ABG pH (7.35-7.45) ABG pCO2 (35-45) mmHg ABG pO2 (83-108) mmHg ABG HCO3 (21-25) mmol/L ABG O2 Saturation (94-97) % Sodium 129 L (137-145) mmol/L Potassium 3.2 L (3.5-5.1) mmol/L Carbon Dioxide 19 L (22-30) mmol/L BUN 25 H (9-20) mg/dL Creatinine 0.55 L (0.66-1.25) mg/dL Glucose 128 H (74-99) mg/dL POC Glucose (mg/dL) 164 H (70-110) mg/dL Calcium 5.9 L* (8.4-10.2) mg/dL Ionized Calcium Ken (4.5-5.3) mg/dL Total Protein 3.7 L (6.3-8.2) g/dL Albumin 1.4 L (3.5-5.0) g/dL 06/28/22 06/28/22 Range/Units 11:29 11:30 WBC (3.8-10.6) k/uL RBC (4.30-5.90) m/uL Hgb (13.0-17.5) gm/dL Hct (39.0-53.0) % RDW (11.5-15.5) % Plt Count (150-450) k/uL Neutrophils # (Manual) (1.3-7.7) k/uL Metamyelocytes # (Man) (0) k/uL Myelocytes # (Manual) (0) k/uL Nucleated RBCs (0-0) /100 WBC ABG pH (7.35-7.45) ABG pCO2 (35-45) mmHg ABG pO2 (83-108) mmHg ABG HCO3 (21-25) mmol/L ABG O2 Saturation (94-97) % Sodium (137-145) mmol/L Potassium (3.5-5.1) mmol/L Carbon Dioxide (22-30) mmol/L BUN (9-20) mg/dL Creatinine (0.66-1.25) mg/dL Glucose (74-99) mg/dL POC Glucose (mg/dL) 174 H (70-110) mg/dL Calcium (8.4-10.2) mg/dL Ionized Calcium Ken 4.1 L (4.5-5.3) mg/dL Total Protein (6.3-8.2) g/dL Albumin (3.5-5.0) g/dL Microbiology - Last 24 Hours (Table) 06/26/22 11:55 Gram Stain - Preliminary Pleural Fluid Body Fluid Culture - Preliminary 06/24/22 19:36 Blood Culture - Preliminary Blood No Growth after 72 hours 06/24/22 19:55 Blood Culture - Preliminary Blood No Growth after 72 hours Assessment and Plan Assessment: Septic shock requiring pressor support with Levophed.Secondary to left lower lobe pneumonia a complicated with pleural effusion status post pigtail catheter placement. Left lower lobe pneumonia with loculated pleural effusion possible parapneumonic COVID-19 infection with symptoms x1 week Atrial fibrillation with RVR. Currently sinus rhythm. off Amiodarone drip. Hypovolemic hyponatremia Lactic acidosis COPD Legally blind Currently everyday smoker DVT prophylaxis with Lovenox subcu Plan: Patient is currently intubated and on mechanical ventilator. Remains on antibiotics in the form of vancomycin and cefepime. Status post pigtail catheter placement by interventional radiology. Follow-up culture reports. Patient is being continued on duo nebs and follow-up closely. Prognosis is guarded. Pulmonary and ID and CT surgery is on board Time with Patient: Greater than 30
[2022-06-29 23:41] LABS: Glucose,Whole Blood 160 mg/dL (70-110)
--- NOTE | 2022-06-29 23:41 | P.PN ---
Subjective Progress Note Date: 06/29/22 Patient is a 61-year-old male with a known history of COPD, peripheral neuropathy nondiabetic, legally blind and history of carpal tunnel syndrome and currently everyday smoker presents to ER with complaints of cough generalized weakness and shortness of breath for the past 1 week.. Afebrile on admission. No complaints of chest pain. No nausea vomiting abdominal pain or diarrhea. Chest x-ray showed there is a left lower lobe pneumonia and left pleural effusion which is new compared to old exam. Repeat chest x-ray this morning showed small left pleural effusion with left lower lobe infiltrate. Correlate for pneumonia. EKG showed sinus tachycardia with frequent supraventricular complexes. Chest ultrasound showed complex loculated fluid collections left posterior lung. Patient was also hypotensive and requiring pressor support. Laboratory test showed WBC 11.1 hemoglobin 10.4 and platelets 142 INR 1.3 Sodium 130 potassium 4.1 chloride 103 bicarb is 16 BUN 21 and creatinine 0.84 Lactic acidosis with level 5.0 and calcium 7.6 and proBNP 5020 Coronavirus PCR detected. 06/26/2022 Patient in MICU. Patient fell of the bed and sustained left-sided elbow injuries. No fractures on x-rays noted. Awake patient remains pressor support and IV hydration antibiotics at home of vancomycin and cefepime. Hemoglobin dropped to 6.2 today. Undergoing transfusion PRBC. Currently on room air. Plan to get IR guided pigtail catheter placement. Laboratory showed WBC 12.2, hemoglobin 6.2 MCV 100.2 and platelets 140 Sodium 133 potassium 4.0 chloride 101 bicarb is 12 BUN 28 and creatinine 0.6 sodium 133 potassium 4.0 chloride 101 bicarb is 12 BUN 28 and creatinine 0.6. Procalcitonin level is 2.04 Pulmonary, ID and CT surgery is on board. 06/27/2022 Patient is in the MICU. Patient was agitated and pulling out lines yesterday and was requiring Precedex drip and also alcohol withdrawal protocol. Today morning he was almost unresponsive stimuli and was intubated as recommended pulmonary. Patient is on bicarb drip was briefly on norepinephrine. Patient remains on antibiotics in the form of vancomycin and cefepime. Afebrile. Patient is status post pigtail catheter on 06/26/2022. Laboratory data showed WBC 9.7 hemoglobin 9.0 and platelets 75 Sodium 130 potassium 3.4 chloride 109 bicarb is 15 BUN 29 creatinine 0.41 blood sugar 205 and magnesium 1.6 and albumin 1.4 06/28/2022 Patient remains in the MICU. Pulm Ventilator with assist control FiO2 30% and PEEP of 5 and tidal volume 450. Patient has been hypotensive and went into A. fib with RVR. Converted to sinus rhythm and off amiodarone drip. Patient is being current antibiotics and all vancomycin and cefepime. Pigtail catheter is in place and is draining serosanguineous fluid from the left pleural space. Blood culture have been negative. Pleural fluid cultures pending. Laboratory pressure WBC 9.7 hemoglobin 9.0 and platelets 75 Sodium 130 potassium 3.4 chloride 109 bicarb is 15 BUN 29 and creatinine 0.49 calcium 6.5 magnesium 1.6 and albumin 1.5 06/29/2022 Patient is in the MICU. Admitted to hospital due to left lobe pneumonia and pleural effusion acute COVID-19 infection. Remains on mechanical ventilator with assist control 16 and tidal volume 400 FiO2 30% and PEEP of 5. Patient is hypotensive and also requiring propofol and vasopressin and norepinephrine. Remains on antibiotics on hold vancomycin and cefepime. Status post pigtail catheter placement by radiology. Cultures have been negative so far. Chest x-ray today showed similar multifocal airspace opacities. Stable support lines and tubes. No appreciable pneumothorax. Laboratory pressure WBC 14.9 hemoglobin 6.2 and platelets 58. Patient is being transfused with 1 unit of PRBC. Sodium 129 potassium 3.7 chloride 107 bicarbonate 17 BUN 25 creatinine 0.71 calcium 4.8 and cortisol level is 4. TSH 0.849 Current medications reviewed. Objective - Vital Signs Vital signs: Vital Signs Temp 97.0 F L 06/29/22 20:00 Pulse 116 H 06/29/22 22:00 Resp 16 06/29/22 22:00 BP 86/62 06/29/22 22:00 Pulse Ox 100 06/29/22 22:00 FiO2 25 06/29/22 20:26 Intake & Output 06/29/22 06/29/22 06/30/22 06:59 18:59 06:59 Intake Total 3406.38 2520.216 350 Output Total 660 392 100 Balance 2746.38 2128.216 250 Weight 65.5 kg 65.5 kg Intake: IV 825 1350 310 Cefepime 2 gm In Sodium 100 Chloride 0.9% 100 ml @ 25 mls/hr IVPB Q8HR [facility] Rx# :[id number] Dextrose 5% in Water 1, 825 900 300 000 ml @ 75 mls/hr IV . [id number] [facility] with Sodium Bicarb (1 Meq/ml) 150 ml Rx#:[id number] Sodium Chloride 0.9% 1, 100 10 000 ml @ 125 mls/hr IV . Q8H [facility] Rx#:[id number] Vancomycin 1,000 mg In 250 Sodium Chloride 0.9% 250 ml @ 125 mls/hr IVPB Q12H [facility] Rx#:[id number] Intake, IV Titration 2581.38 860.216 Amount Cisatracurium 200 mg In 45.588 Sodium Chloride 0.9% 180 ml @ 2 MCG/KG/MIN 7.86 mls/hr IV .Q24H [facility] Rx#: [id number] Norepinephrine 8 mg In 481.38 805.830 Sodium Chloride 0.9% 250 ml @ 0.03 MCG/KG/MIN 3. 518 mls/hr IV .Q24H [facility] Rx#:[id number] Sodium Chloride 0.9% 1, 2000 000 ml @ 999 mls/hr IV . Q1H1M [facility] Rx#:[id number] Vasopressin 20 unit In 8.798 Sodium Chloride 0.9% 50 ml @ 0.03 UNITS/MIN 4.59 mls/hr IV .Q11H7M [facility] Rx# :[id number] propofoL 1,000 mg In 100 Empty Bag 1 bag @ 15 MCG/ KG/MIN 5.283 mls/hr IV . [id number] [facility] Rx#:[id number] Tube Feeding 10 Blood Product 310 Rc As-1 Unit 310 [id number] Other 30 Output: Chest Tube Drainage 600 360 20 Left Upper Anterior Chest 200 80 20 left posterior chest 400 280 Drainage 80 Left Posterior Chest 80 Urine 60 32 0 Other: Voiding Method Indwelling Catheter Indwelling Catheter ABP, PAP, CO, CI - Last Documented Arterial Blood Pressure 82/65 - Exam PHYSICAL EXAMINATION: Patient is sedated and on mechanical ventilator. HEENT: Normocephalic. Neck is supple. Pupils reactive. Nostrils clear. Oral cavity is moist. Neck reveals no JVD, carotid bruits, or thyromegaly. CHEST EXAMINATION: Trachea is central. Symmetrical expansion. Left basilar crackles and pigtail catheter in place. No wheezing.. CARDIAC: Normal S1, S2 with no gallops. No murmurs ABDOMEN: Soft. Bowel sounds present. Nontender. No organomegaly. No abdominal bruits. Extremities: reveal no edema. No clubbing or cyanosis Neurologically. Patient is sedated and intubated. No gross focal deficits noted Skin: No rash or skin lesions. Psychiatric: Could not be assessed., Musculoskeletal: No joint swelling or deformity. - Labs CBC & Chem 7: 06/29/22 14:36 06/29/22 05:45 Labs: Abnormal Lab Results - Last 24 Hours (Table) 06/26/22 06/29/22 06/29/22 Range/Units 06:26 00:20 05:20 WBC 14.9 H (3.8-10.6) k/uL RBC 1.91 L (4.30-5.90) m/uL Hgb 6.2 L* D (13.0-17.5) gm/dL Hct 17.8 L* (39.0-53.0) % RDW 16.6 H (11.5-15.5) % Plt Count 58 L (150-450) k/uL Neutrophils # (Manual) 12.20 H (1.3-7.7) k/uL Monocytes # (Manual) 1.19 H (0-1.0) k/uL Myelocytes # (Manual) 0.15 H (0) k/uL Nucleated RBCs 16 H (0-0) /100 WBC ABG pH (7.35-7.45) ABG pCO2 (35-45) mmHg ABG pO2 (83-108) mmHg ABG HCO3 (21-25) mmol/L ABG O2 Saturation (94-97) % Sodium (137-145) mmol/L Carbon Dioxide (22-30) mmol/L BUN (9-20) mg/dL Glucose (74-99) mg/dL POC Glucose (mg/dL) 128 H (70-110) mg/dL Calcium (8.4-10.2) mg/dL Total Protein (6.3-8.2) g/dL Albumin (3.5-5.0) g/dL Crossmatch See Detail 06/29/22 06/29/22 06/29/22 Range/Units 05:21 05:45 05:45 WBC (3.8-10.6) k/uL RBC (4.30-5.90) m/uL Hgb (13.0-17.5) gm/dL Hct (39.0-53.0) % RDW (11.5-15.5) % Plt Count (150-450) k/uL Neutrophils # (Manual) (1.3-7.7) k/uL Monocytes # (Manual) (0-1.0) k/uL Myelocytes # (Manual) (0) k/uL Nucleated RBCs (0-0) /100 WBC ABG pH 7.50 H (7.35-7.45) ABG pCO2 25 L (35-45) mmHg ABG pO2 133 H (83-108) mmHg ABG HCO3 19 L (21-25) mmol/L ABG O2 Saturation 100.0 H (94-97) % Sodium 129 L (137-145) mmol/L Carbon Dioxide 17 L (22-30) mmol/L BUN 25 H (9-20) mg/dL Glucose 143 H (74-99) mg/dL POC Glucose (mg/dL) 178 H (70-110) mg/dL Calcium 4.8 L* (8.4-10.2) mg/dL Total Protein 3.0 L (6.3-8.2) g/dL Albumin 1.1 L (3.5-5.0) g/dL Crossmatch 06/29/22 06/29/22 06/29/22 Range/Units 05:46 08:25 11:56 WBC (3.8-10.6) k/uL RBC (4.30-5.90) m/uL Hgb (13.0-17.5) gm/dL Hct (39.0-53.0) % RDW (11.5-15.5) % Plt Count (150-450) k/uL Neutrophils # (Manual) (1.3-7.7) k/uL Monocytes # (Manual) (0-1.0) k/uL Myelocytes # (Manual) (0) k/uL Nucleated RBCs (0-0) /100 WBC ABG pH (7.35-7.45) ABG pCO2 (35-45) mmHg ABG pO2 (83-108) mmHg ABG HCO3 (21-25) mmol/L ABG O2 Saturation (94-97) % Sodium (137-145) mmol/L Carbon Dioxide (22-30) mmol/L BUN (9-20) mg/dL Glucose (74-99) mg/dL POC Glucose (mg/dL) 191 H 205 H (70-110) mg/dL Calcium (8.4-10.2) mg/dL Total Protein (6.3-8.2) g/dL Albumin (3.5-5.0) g/dL Crossmatch See Detail 06/29/22 06/29/22 Range/Units 14:36 17:35 WBC 27.8 H (3.8-10.6) k/uL RBC 3.24 L (4.30-5.90) m/uL Hgb 10.5 L D (13.0-17.5) gm/dL Hct 30.6 L (39.0-53.0) % RDW 15.9 H (11.5-15.5) % Plt Count 68 L (150-450) k/uL Neutrophils # (Manual) (1.3-7.7) k/uL Monocytes # (Manual) (0-1.0) k/uL Myelocytes # (Manual) (0) k/uL Nucleated RBCs (0-0) /100 WBC ABG pH (7.35-7.45) ABG pCO2 (35-45) mmHg ABG pO2 (83-108) mmHg ABG HCO3 (21-25) mmol/L ABG O2 Saturation (94-97) % Sodium (137-145) mmol/L Carbon Dioxide (22-30) mmol/L BUN (9-20) mg/dL Glucose (74-99) mg/dL POC Glucose (mg/dL) 163 H (70-110) mg/dL Calcium (8.4-10.2) mg/dL Total Protein (6.3-8.2) g/dL Albumin (3.5-5.0) g/dL Crossmatch Microbiology - Last 24 Hours (Table) 06/27/22 21:40 Gram Stain - Preliminary Sputum Sputum Culture - Preliminary Rita albicans 06/26/22 11:55 Gram Stain - Preliminary Pleural Fluid Body Fluid Culture - Preliminary 06/24/22 19:55 Blood Culture - Preliminary Blood No Growth after 96 hours 06/24/22 19:36 Blood Culture - Preliminary Blood No Growth after 96 hours Assessment and Plan Assessment: Septic shock requiring pressor support .Secondary to left lower lobe pneumonia a complicated with pleural effusion status post pigtail catheter placement. Left lower lobe pneumonia with loculated pleural effusion possible parapneumonic COVID-19 infection with symptoms x1 week Atrial fibrillation with RVR. Currently sinus rhythm. off Amiodarone drip. Hypovolemic hyponatremia Lactic acidosis COPD Legally blind Currently everyday smoker DVT prophylaxis with Lovenox subcu Plan: Patient is currently intubated and on mechanical ventilator. Remains on antibiotics in the form of vancomycin and cefepime. Status post pigtail catheter placement by interventional radiology. Cultures have been negative so far.. Patient is being continued on duo nebs and follow-up closely. Prognosis is guarded. Pulmonary and ID and CT surgery is on board Time with Patient: Greater than 30
[2022-06-30] MEDS: VASOPRESSIN 20 UNIT in SODIUM CHLORIDE 0.9% 50 ML IV SCH ×3 (00:01→14:39)
[2022-06-30] MEDS: INSULIN ASPART (NovoLOG) 100 UNIT/ML VIAL SQ SCH ×4 (00:02→18:17)
[2022-06-30] MEDS: CEFEPIME 2 GM in SODIUM CHLORIDE 0.9% 100 ML IVPB SCH ×3 (00:02→16:58)
[2022-06-30] MEDS: HYDROCORTISONE SUCCINATE 100 MG/2 ML VIAL IV SCH ×4 (00:03→18:17)
[2022-06-30] MEDS: ARTIFICIAL TEARS OINTMENT 3.5 GM TUBE BOTH EYES SCH ×6 (00:03→22:34)
[2022-06-30] MEDS: DEXTROSE 5% IN WATER 1,000 ML with SODIUM BICARB (1 MEQ/ML) 150 ML IV SCH ×2 (00:03→16:52)
[2022-06-30] MEDS: NOREPINEPHRINE 8 MG in SODIUM CHLORIDE 0.9% 250 ML IV SCH ×8 (01:35→19:01)
[2022-06-30 03:30] LABS: Anisocytosis Slight; HCT 27.2 % (39.0-53.0); Hypochromasia Slight; MCH 30.7 pg (25.0-35.0); MCHC 32.6 g/dL (31.0-37.0); Mean Platelet Volume 12.7; Poikilocytosis Moderate; RBC 2.89 m/uL (4.30-5.90); RDW 17.3 % (11.5-15.5)
[2022-06-30] MEDS: ALBUTEROL HFA INHALER INHALATION SCH ×6 (03:38→23:56)
[2022-06-30 03:46] LABS: Potassium 4.2 mmol/L (3.5-5.1)
[2022-06-30 03:50] LABS: Calcium 4.5 mg/dL (8.4-10.2)
[2022-06-30] MEDS ORDERED: MAGNESIUM SULFATE-D5W PMX 1 GM in DEXTROSE/WATER 1 100ML.BAG IVPB SCH (04:00)
[2022-06-30] MEDS ORDERED: POTASSIUM BICARBONATE/CIT AC 20 MEQ TABLET.EFF NG-TUBE SCH (04:00)
[2022-06-30] MEDS ORDERED: CALCIUM CHLORIDE 100 MG/ML 10 ML SYRINGE IVP ONE (04:19)
[2022-06-30] MEDS ORDERED: VANCOMYCIN TROUGH DUE 1 EACH MISC MISCELLANE ONE (05:00)
[2022-06-30 05:41] LABS: ABG Base Excess -17.5 mmol/L; ABG HCO3 12 mmol/L (21-25); ABG Oxygen Saturation 93.4 % (94-97); ABG PCO2 38 mmHg (35-45); ABG PO2 73 mmHg (83-108); ABG TCO2 13 mmol/L (19-24); Allen Test Performed? Yes
[2022-06-30 05:43] LABS: Glucose,Whole Blood 100 mg/dL (70-110)
[2022-06-30 05:43] LABS: ABG PH 7.11 (7.35-7.45)
[2022-06-30 05:43] LABS: HGB 8.9 gm/dL (13.0-17.5); Platelet Count 81 k/uL (150-450)
[2022-06-30 06:29] LABS: Band Neutrophils % 29 %; Metamyelocytes % 3 %; Neutrophils % (M) 37 %; Nucleated Red Blood Cells 36 /100 WBC (0-0); Total Cells Counted 200
[2022-06-30 06:30] LABS: Basophils # (M) 0.26 k/uL (0-0.2); Eosinophils # (M) 1.04 k/uL (0-0.7); Metamyelocytes # (M) 0.78 k/uL (0); Monocytes # (M) 1.82 k/uL (0-1.0)
[2022-06-30 06:31] LABS: Poikilocytosis (M) Present; Polychromasia Present
[2022-06-30 06:32] LABS: Large Platelets Present
[2022-06-30 06:34] LABS: Target Cells Present
[2022-06-30] MEDS ORDERED: SODIUM BICARB 8.4% 50 ML SYR (1 MEQ/ML) IV STA ×4 (06:36→18:22)
[2022-06-30] MEDS: SYMBICORT 160-4.5 MCG INHALER INHALATION SCH (07:20)
--- NOTE | 2022-06-30 07:48 | XR ---
EXAMINATION TYPE: XR chest 1V portable DATE OF EXAM: 06/30/2022 CLINICAL HISTORY: Difficulty breathing progress study. TECHNIQUE: Single AP portable semiupright view of the chest is obtained. COMPARISON: Chest x-ray from one day earlier and older studies. FINDINGS: Stable endotracheal and orogastric tubes. Stable left-sided subclavian central venous cath eter. Stable left-sided lateral chest tube and left basilar pigtail pleural drainage catheter without visualized pneumothorax. Persistent bibasilar opacities and small to moderate-sized left greater than right pleural fluid jennifer ections. Cardiac silhouette size is stable and within normal limits. Osseous structures are intact. IMPRESSION: Persistent small to moderate size left greater than right pleural effusions with associat ed bibasilar acute infiltrate and/or atelectasis and mild to moderate central edema all redemonstrate d. No significant change from one day earlier.
[2022-06-30] MEDS: CHLORHEXIDINE GLUCONATE 15 ML CUP MUCOUS MEM SCH ×2 (08:15→22:34)
[2022-06-30] MEDS: ASCORBIC ACID 500 MG TAB PO SCH (08:15)
[2022-06-30] MEDS: FAMOTIDINE 20 MG TAB PO SCH ×2 (08:15→22:34)
[2022-06-30] MEDS: ZINC SULFATE 220 MG CAP PO SCH (08:15)
[2022-06-30] MEDS: ENOXAPARIN 40 MG/0.4 ML SYRINGE SQ SCH (08:15)
[2022-06-30] MEDS: CHOLECALCIFEROL 25 MCG (1000 IU) TABLET PO SCH (08:15)
[2022-06-30 09:26] LABS: ABG Base Excess -7.4 mmol/L; ABG HCO3 19 mmol/L (21-25); ABG PCO2 39 mmHg (35-45); ABG PO2 61 mmHg (83-108); ABG TCO2 20 mmol/L (19-24); Allen Test Performed? Yes
--- NOTE | 2022-06-30 10:14 | P.PN ---
Subjective Progress Note Date: 06/30/22 Principal diagnosis: Left lower lobe pneumonia with complicated loculated parapneumonic effusion, possible empyema. Past medical history significant for COPD, neuropathy, is legally blind, a 90 pound weight loss over one year and chronic ongoing tobacco dependence and daily EtOH use of drinking 1 beer per day. Status post day #5 left chest pleural pigtail catheter placement by interventional radiology. The patient was seen and examined in follow-up today 06/30/2022 at his bedside in the intensive care unit. Currently the patient is laying in bed, remains intubated with mechanical ventilator support and is sedated on propofol drip. He remains on norepinephrine drip at 65 mcg/m and vasopressin at 0.04 units/min for blood pressure support. The patient remains with a left chest pleural pigtail catheter in place which was placed by interventional radiology on 06/26/2022 and a left thoracostomy tube which was placed by Dr. Otero on 06/28/2022. Chest x-ray reports a persistent small to moderate size left greater than right pleural effusion with associated bibasilar acute infiltrate and/or atelectasis and mild to moderate central edema. Objective - Vital Signs Vital signs: Vital Signs Temp 97.5 F L 06/30/22 04:00 Pulse 115 H 06/30/22 07:00 Resp 16 06/30/22 07:00 BP 85/70 06/30/22 07:00 Pulse Ox 100 06/30/22 06:00 FiO2 25 06/30/22 08:00 Intake & Output 06/29/22 06/30/22 06/30/22 18:59 06:59 18:59 Intake Total 2520.216 1933.243 383.184 Output Total 392 525 0 Balance 2128.216 1408.243 383.184 Weight 65.5 kg 70 kg Intake: IV 1350 1010 75 Cefepime 2 gm In Sodium 100 100 Chloride 0.9% 100 ml @ 25 mls/hr IVPB Q8HR [facility] Rx# :[id number] Dextrose 5% in Water 1, 900 900 75 000 ml @ 75 mls/hr IV . [id number] [facility] with Sodium Bicarb (1 Meq/ml) 150 ml Rx#:[id number] Sodium Chloride 0.9% 1, 100 10 000 ml @ 125 mls/hr IV . Q8H [facility] Rx#:[id number] Vancomycin 1,000 mg In 250 Sodium Chloride 0.9% 250 ml @ 125 mls/hr IVPB Q12H [facility] Rx#:[id number] Intake, IV Titration 860.216 763.243 308.184 Amount Cisatracurium 200 mg In 45.588 Sodium Chloride 0.9% 180 ml @ 2 MCG/KG/MIN 7.86 mls/hr IV .Q24H [facility] Rx#: [id number] Norepinephrine 8 mg In 805.830 712.243 258 Sodium Chloride 0.9% 250 ml @ 0.03 MCG/KG/MIN 3. 518 mls/hr IV .Q24H [facility] Rx#:[id number] Vasopressin 20 unit In 8.798 51 50.184 Sodium Chloride 0.9% 50 ml @ 0.03 UNITS/MIN 4.59 mls/hr IV .Q11H7M [facility] Rx# :[id number] Tube Feeding 70 Blood Product 310 Rc As-1 Unit 310 [id number] Other 90 Output: Chest Tube Drainage 360 310 Left Upper Anterior Chest 80 100 left posterior chest 280 210 Drainage 210 Left Posterior Chest 210 Urine 32 5 0 Other: Voiding Method Indwelling Catheter Indwelling Catheter ABP, PAP, CO, CI - Last Documented Arterial Blood Pressure 60/50 - Exam CONSTITUTIONAL: Laying in bed, in the intensive care unit, is sedated, intubated with mechanical ventilator support. Not following any simple verbal commands at this time. Cachectic. HEENT: Neck is supple, no JVD, no lymphadenopathy. RESPIRATORY: Lungs sounds essentially clear throughout, diminished to his bilateral bases, left greater than right. Respirations are symmetrical and nonlabored with mechanical ventilator support. Currently mechanical ventilator settings are assist control 16, TV 400, FiO2 25% and PEEP of 5. Oxygen saturations are 97% on current mechanical ventilator settings. CARDIOVASCULAR: Regular rhythm and tachycardic rate. S1 and S2 present, negative for S3, gallop or murmur. Palpable peripheral pulses bilaterally, no edema to his bilateral lower extremities. Bedside telemetry showing sinus tachycardia rhythm heart rate 115 BPM. GASTROINTESTINAL: Abdomen soft, nontender, nondistended. Active bowel sounds present 4 quadrants. No guarding or rigidity. OG tube in place. GENITOURINARY: Victor catheter in place for accurate I's and O's. INTEGUMENTARY: Skin is warm and dry with no evidence of clubbing or cyanosis. Dressing is clean, dry and intact to left chest pigtail catheter and to his left anterior pleural chest tube. NEUROLOGIC: Unable to accurately assess this a.m. as the patient sedated on propofol drip. Patient is legally blind. MUSKULOSKELETAL: Unable to accurately assess this a.m. as the patient is sedated on propofol drip. PSYCHIATRIC: Unable to accurately assess this a.m. as the patient is sedated on propofol drip. - Allied health notes Allied health notes reviewed: nursing - Labs CBC & Chem 7: 06/30/22 03:08 06/30/22 03:08 Labs: Abnormal Lab Results - Last 24 Hours (Table) 06/26/22 06/29/22 06/29/22 Range/Units 06:26 08:25 11:56 WBC (3.8-10.6) k/uL RBC (4.30-5.90) m/uL Hgb (13.0-17.5) gm/dL Hct (39.0-53.0) % RDW (11.5-15.5) % Plt Count (150-450) k/uL Neutrophils # (Manual) (1.3-7.7) k/uL Lymphocytes # (Manual) (1.0-4.8) k/uL Monocytes # (Manual) (0-1.0) k/uL Eosinophils # (Manual) (0-0.7) k/uL Basophils # (Manual) (0-0.2) k/uL Metamyelocytes # (Man) (0) k/uL Nucleated RBCs (0-0) /100 WBC ABG pH (7.35-7.45) ABG pO2 (83-108) mmHg ABG HCO3 (21-25) mmol/L ABG Total CO2 (19-24) mmol/L ABG O2 Saturation (94-97) % Sodium (137-145) mmol/L Carbon Dioxide (22-30) mmol/L BUN (9-20) mg/dL Glucose (74-99) mg/dL POC Glucose (mg/dL) 205 H (70-110) mg/dL Calcium (8.4-10.2) mg/dL Vancomycin Trough ug/mL Crossmatch See Detail See Detail 06/29/22 06/29/2206/29/22 Range/Units 14:36 17:35 23:40 WBC 27.8 H (3.8-10.6) k/uL RBC 3.24 L (4.30-5.90) m/uL Hgb 10.5 L D (13.0-17.5) gm/dL Hct 30.6 L (39.0-53.0) % RDW 15.9 H (11.5-15.5) % Plt Count 68 L (150-450) k/uL Neutrophils # (Manual) (1.3-7.7) k/uL Lymphocytes # (Manual) (1.0-4.8) k/uL Monocytes # (Manual) (0-1.0) k/uL Eosinophils # (Manual) (0-0.7) k/uL Basophils # (Manual) (0-0.2) k/uL Metamyelocytes # (Man) (0) k/uL Nucleated RBCs (0-0) /100 WBC ABG pH (7.35-7.45) ABG pO2 (83-108) mmHg ABG HCO3 (21-25) mmol/L ABG Total CO2 (19-24) mmol/L ABG O2 Saturation (94-97) % Sodium (137-145) mmol/L Carbon Dioxide (22-30) mmol/L BUN (9-20) mg/dL Glucose (74-99) mg/dL POC Glucose (mg/dL) 163 H 160 H (70-110) mg/dL Calcium (8.4-10.2) mg/dL Vancomycin Trough ug/mL Crossmatch 06/30/22 06/30/22 06/30/22 Range/Units 03:08 03:08 03:08 WBC 26.0 H (3.8-10.6) k/uL RBC 2.89 L (4.30-5.90) m/uL Hgb 8.9 L D (13.0-17.5) gm/dL Hct 27.2 L (39.0-53.0) % RDW 17.3 H (11.5-15.5) % Plt Count 81 L (150-450) k/uL Neutrophils # (Manual) 17.10 H (1.3-7.7) k/uL Lymphocytes # (Manual) 5.20 H (1.0-4.8) k/uL Monocytes # (Manual) 1.82 H (0-1.0) k/uL Eosinophils # (Manual) 1.04 H (0-0.7) k/uL Basophils # (Manual) 0.26 H (0-0.2) k/uL Metamyelocytes # (Man) 0.78 H (0) k/uL Nucleated RBCs 36 H (0-0) /100 WBC ABG pH (7.35-7.45) ABG pO2 (83-108) mmHg ABG HCO3 (21-25) mmol/L ABG Total CO2 (19-24) mmol/L ABG O2 Saturation (94-97) % Sodium 131 L (137-145) mmol/L Carbon Dioxide 13 L (22-30) mmol/L BUN 26 H (9-20) mg/dL Glucose 125 H (74-99) mg/dL POC Glucose (mg/dL) (70-110) mg/dL Calcium 4.5 L* (8.4-10.2) mg/dL Vancomycin Trough 44.0 H* ug/mL Crossmatch 06/30/22 06/30/22 Range/Units 05:38 09:25 WBC (3.8-10.6) k/uL RBC (4.30-5.90) m/uL Hgb (13.0-17.5) gm/dL Hct (39.0-53.0) % RDW (11.5-15.5) % Plt Count (150-450) k/uL Neutrophils # (Manual) (1.3-7.7) k/uL Lymphocytes # (Manual) (1.0-4.8) k/uL Monocytes # (Manual) (0-1.0) k/uL Eosinophils # (Manual) (0-0.7) k/uL Basophils # (Manual) (0-0.2) k/uL Metamyelocytes # (Man) (0) k/uL Nucleated RBCs (0-0) /100 WBC ABG pH 7.11 L* 7.30 L (7.35-7.45) ABG pO2 73 L 61 L (83-108) mmHg ABG HCO3 12 L 19 L (21-25) mmol/L ABG Total CO2 13 L (19-24) mmol/L ABG O2 Saturation 93.4 L 93.0 L (94-97) % Sodium (137-145) mmol/L Carbon Dioxide (22-30) mmol/L BUN (9-20) mg/dL Glucose (74-99) mg/dL POC Glucose (mg/dL) (70-110) mg/dL Calcium (8.4-10.2) mg/dL Vancomycin Trough ug/mL Crossmatch Microbiology - Last 24 Hours (Table) 06/27/22 21:40 Gram Stain - Final Sputum Sputum Culture - Final Rita albicans 06/26/22 11:55 Gram Stain - Final Pleural Fluid Body Fluid Culture - Final 06/24/22 19:36 Blood Culture - Preliminary Blood No Growth after 120 hours 06/24/22 19:55 Blood Culture - Preliminary Blood No Growth after 120 hours - Imaging and Cardiology Chest x-ray: report reviewed, image reviewed Assessment and Plan Assessment: 1. Left lower lobe pneumonia with complicated loculated parapneumonic effusion, possible empyema, status post left pleural pigtail placement by interventional radiology 2. Sepsis 4. Acute hypoxic respiratory failure, requiring intubation with mechanical ventilator support 5. Paroxysmal atrial fibrillation, currently in normal sinus rhythm 6. Hypotension, likely due to sepsis 7. Status post fall from standing 8. COVID-19 virus infection 9. Shortness of breath, likely secondary to above 10. Chronic obstructive pulmonary disease 11. Malnutrition, cachectic 90 pound weight loss over one year period 12. Chronic ongoing tobacco dependence 13. Daily EtOH use, drinks 1 beer daily 14. Legally blind 15. Spontaneous left pneumothorax, status post left pleural chest tube p lacement by Dr. Otero Plan: 1. We will hold off on any alteplase/dornase pleural instillation as the patient is hemodynamically unstable requiring norepinephrine and vasopressin drip support for his blood pressure. 2. Mechanical ventilator management and propofol drip per pulmonary critical care recommendations. 3. Continue antibiotics, currently on cefepime and vancomycin managed by infectious disease. 4. GI and DVT prophylaxis. 5. Norepinephrine and vasopressin drip management per pulmonary critical care management. D5W with sodium bicarbonate drip management per pulmonary critical care. 6. Continue to monitor pleural fluid culture results. Pleural fluid cultures show no growth after 120 hours. 7. We will continue to follow the patient on an as-needed basis, once the patient is more hemodynamically stable please feel free to reconsult for further recommendations. Time with Patient: Less than 30
--- NOTE | 2022-06-30 11:07 | P.PN ---
Subjective Progress Note Date: 06/30/22 Principal diagnosis: Respiratory failure. This is a 61-year-old -Prydeinig male with history of COPD, neuropathy, legally blind, patient came in with just over a week history of productive cough, shortness of breath, and weakness. Apparently his tested positive for COVID-19 infection, and the patient has been feeling run down for the last 1 week at least. Patient was seen in the ER, and he was noted to have positive corneal COVID-19 infection patient was also noted to have an extensive infiltrate in the left lower lobe, and a parapneumonic pleural effusion. U ltrasound of the fluid showed loculation, patient was noted to be hypotensive in the ER, he required placement on norepinephrine. He was given fluid boluses, started on vancomycin and cefepime. Admitted to the ICU, and I was asked to see him on consultation. After evaluating the patient and reviewing the ultrasound of the chest, I recommended interventional radiology evaluation for possible pig tail catheter placement in his left sided loculated pleural effusion. Patient may have a picture of empyema in addition to his pneumonia, patient may have underlying COVID-19 infection. In the meantime the patient is on room air, but he is requiring a small dose of norepinephrine. Received multiple fluid boluses while in the ER. Patient will be seen by interventional radiology, infectious disease, and he will be seen by thoracic surgery on consultation. Patient remains in the ICU, fell off the bed, sustained some left-sided and elbow injuries, but no fractures, x-rays were negative. Patient still on norepinephrine at 0.02 mcg/m remains on IV fluid at 1 25 mL/h remains on antibiotics in the form of cefepime and vancomycin. Hemoglobin dropped today to 6.2 and he will be receiving a unit of packed RBCs, patient was supposed to have a pigtail catheter placement in his loculated pleural effusion yesterday, he refused but he seems to be agreeable to have it done today. Patient is about the same compared to yesterday, nonetheless he is on room air and O2 sats is 97% on room air. WBC count is 12.2 hemoglobin is 6.2 electrolytes are normal renal profile is normal. Blood cultures are negative so far. Pro-calcitonin is 2.6. Today it is 2.04. Patient apparently pulled out his central line yesterday, and I believe the patient will need a PICC line for IV antibiotics may be long-term. Hence we'll arrange for PICC line as well as for pigtail catheter placement today. Reevaluated today 06/27/22, patient remains in the ICU, he developed extreme agitation yesterday, and he was asking for a beer. Patient was pulling all his lines, he even pulled his triple-lumen catheter and his PICC line, now he has mostly peripheral lines in place, he required Precedex yesterday, however he became quite bradycardic, hence did not tolerate Precedex. Patient was placed on the CIWA protocol using Ativan, and apparently at one point early this morning he was almost unresponsive to stimuli. I was notified about the patient, and I recommended immediate intubation of the patient. However according to the nurses before intubation the patient became more arousable and did not require intubation. Today the patient is confused, a bit restless, he is on 3 L nasal cannula, he is also on sodium bicarb drip at 75 mL/h he is also on D5 4 5 at 50 mL per hour he was briefly on norepinephrine 0.02 mcg/m and I have discontinued norepinephrine this morning. Antibiotics gongora patient is on vancomycin and cefepime. Yesterday he had a pigtail catheter placed in his complicated pleural effusion and has been receiving alteplase through the pigtail catheter. ABG today showed a pO2 of 82 pCO2 of 24 pH of 7.42. Patient has a non-anion gap metabolic acidosis. Chloride is 109 renal profile is normal potassium is 3.4. Patient remains in the CIWA protocol. And at this point he chest x-ray is showing worsening of his interstitial infiltrates/COVID-19 pneumonia findings Reevaluated today on 06/28/22, patient remains in the ICU, yesterday the patient's clinical status became worse, he required high flow oxygen, patient remained hypoxic, he was also hypotensive, he went into atrial fibrillation with RVR, required intubation and required amiodarone drip for his atrial fibrillation patient is now back in sinus rhythm. He is still on assist control rate of 20, volume 450 FiO2 is 30%, and PEEP of 5. ABG showed a pO2 of 213 pCO2 27 pH of 7.48 and this was on 50% however the FiO2 was cut down to 30%. CBC showed evidence of leukocytosis with WBC 14.2 hemoglobin 9.1. Basic metabolic profile showed low sodium of 129 low potassium of 3.2 otherwise his labs are unremarkable. Calcium was noted to be low today at 5.9 however the patient had a low albumin of 1.4. Patient will be started on enteral feeding today, and a nutritional consult was initiated. Patient was on heparin yesterday for his atrial fibrillation with RVR however because of his low platelets, and since the patient converted to sinus rhythm, is now off amiodarone, and I recommended Lovenox. A d-dimer is pending. Pigtail catheter remains in place, still draining some serosanguineous fluid from the left pleural space, the mind you patient had loculated pleural effusion along with slightly elevated pro calcit onin and COVID-19 pneumonia. Has been receiving cefepime and vancomycin, blood cultures remain negative. Gram stain on the pleural effusion is negative however there is moderate polymorphonuclear leukocytes in the pleural effusion. Final culture is pending I felt that the effusion was parapneumonic related to underlying left lower lobe pneumonia in addition to his COVID-19 pneumonia Progress note dated 06/29/2022. This is a 61-year-old black male who was admitted on June 24. He came in with coronavirus associated pneumonia, and was intubated for respiratory failure on June 27. He remains on the ventilator. He is on volume assist control, rate 16, tidal volume 400, FiO2 30%, PEEP of 5. Blood gases show pO2 of 133, pCO2 25, and a pH is 7.5. This blood gases consistent with respiratory alkalosis. The patient is currently on propofol at 20 mcg/kg/m, vasopressin at 0.03 units per minute, norepinephrine at 32 mcg/m, D5W with 3 ampules of sodium bicarbonate at 75 mL an hour, and there are note tube feeds. The patient had a left pigtail catheter inserted by interventional radiology on June 26, and had a left chest tube placed on June 28, by my partner. The patient remains on cefepime and vancomycin. White count 14.9, hemoglobin 6.2, hematocrit 17.8, and platelet count 50,000. Sodium 129, potassium 3.7, chlorides 107, CO2 17, anion gap 5, BUN 25, and creatinine 0.71. Cortisol level was only 4. Microbiology is currently negative. Chest x-ray shows a properly placed endotracheal tube, bilateral multifocal airspace opacities, and no appreciable pneumothorax. Progress note dated 06/30/2022. 61-year-old black male, who was admitted on June 24. He came in with a diagnosis of coronavirus associated pneumonia, and was intubated for respiratory failure on June 27. He remains on the ventilator. He is on volume assist control, rate 16, tidal volume 400, FiO2 25%, and PEEP of 5. Blood gases show pO2 of 73, pCO2 of 38, and a pH is 7.11. With that blood gas, the patient received 3 ampules of sodium bicarbonate IV push. He is currently on D5W with 3 ampules of sodium bicarbonate at 75 mL an hour. In addition, he is getting propofol at 20 mcg/kg/m, Nimbex at 1 mcg/kg/m, with train of 4 monitoring, norepinephrine at 65 mcg/m, and vasopressin at 0.04 units per minute. Is getting vital high protein at 10 mL an hour, with a goal of 60. In addition, because of a low cortisol, he is getting hydrocortisone, 50 mg IV push every 6 hours. Repeat blood gas will be done. We'll change and nasogastric tube from the transnasal to the transoral approach. Currently labs include a white count 26, hemoglobin 8.9, hematocrit 27.2, and a platelet count of 81,000. Repeat blood gas shows a pO2 of 61, pCO2 39, and a pH of 7.3. Sodium 131, potassium 4.2, chlorides 107, CO2 13, BUN 26, and creatinine 1.20. Calcium is 4.5. Chest x-ray continues to show small to moderate left-sided pleural effusion, greater than the right, and bibasilar airspace disease. He also has a left-sided chest tube, and a left-sided pigtail catheter. Objective - Vital Signs Vital signs: Vital Signs Temp 97.7 F 06/30/22 08:00 Pulse 108 H 06/30/22 10:30 Resp 16 06/30/22 10:30 BP 106/76 06/30/22 10:30 Pulse Ox 95 06/30/22 10:30 FiO2 25 06/30/22 08:00 Intake & Output 06/29/22 06/30/22 06/30/22 18:59 06:59 18:59 Intake Total 2520.216 6135.135 8362.286 Output Total 392 525 0 Balance 2128.216 0247.714 9301.286 Weight 65.5 kg 70 kg Intake: IV 1350 1010 400 Cefepime 2 gm In Sodium 100 100 100 Chloride 0.9% 100 ml @ 25 mls/hr IVPB Q8HR [facility] Rx# :[id number] Dextrose 5% in Water 1, 900 900 300 000 ml @ 75 mls/hr IV . [id number] FELICIA with Sodium Bicarb (1 Meq/ml) 150 ml Rx#:[id number] Sodium Chloride 0.9% 1, 100 10 000 ml @ 125 mls/hr IV . Q8H [facility] Rx#:[id number] Vancomycin 1,000 mg In 250 Sodium Chloride 0.9% 250 ml @ 125 mls/hr IVPB Q12H [facility] Rx#:[id number] Intake, IV Titration 860.216 763.243 521.286 Amount Cisatracurium 200 mg In 45.588 Sodium Chloride 0.9% 180 ml @ 2 MCG/KG/MIN 7.86 mls/hr IV .Q24H [facility] Rx#: [id number] Norepinephrine 8 mg In 805.830 712.243 471.102 Sodium Chloride 0.9% 250 ml @ 0.03 MCG/KG/MIN 3. 518 mls/hr IV .Q24H [facility] Rx#:[id number] Vasopressin 20 unit In 8.798 51 50.184 Sodium Chloride 0.9% 50 ml @ 0.03 UNITS/MIN 4.59 mls/hr IV .Q11H7M [facility] Rx# :[id number] Tube Feeding 70 60 Blood Product 310 Rc As-1 Unit 310 [id number] Other 90 30 Output: Chest Tube Drainage 360 310 Left Upper Anterior Chest 80 100 left posterior chest 280 210 Drainage 210 Left Posterior Chest 210 Urine 32 5 0 Other: Voiding Method Indwelling Catheter Indwelling Catheter Indwelling Catheter ABP, PAP, CO, CI - Last Documented Arterial Blood Pressure 99/71 - Exam No acute distress, sedated on propofol, with an orally placed endotracheal tube. NG tube was placed through the nares. HEENT examination is grossly unremarkable. Neck supple. Full range of motion. No adenopathy thyromegaly or neck vein distention. Cardiovascular examination reveals regular rhythm rate. S1-S2 normal. No S3 or S4. No discernible murmur noted. Heart sounds are distant. Heart rate 108 bpm. Lungs reveal coarse bilateral rhonchi. Breath sounds are diminished on the left. No wheezes. No crackles. The patient has a left-sided chest tube with a leak, and a left posterior pigtail catheter. Saturations are 95%. Abdomen soft, without bowel sounds. Extremities are intact. No cyanosis clubbing or edema. Skin is without rash or lesion. Neurologic examination cannot be adequately assessed. - Labs CBC & Chem 7: 06/30/22 03:08 06/30/22 03:08 Labs: Abnormal Lab Results - Last 24 Hours (Table) 06/29/22 06/29/22 06/29/22 Range/Units 08:25 11:56 14:36 WBC 27.8 H (3.8-10.6) k/uL RBC 3.24 L (4.30-5.90) m/uL Hgb 10.5 L D (13.0-17.5) gm/dL Hct 30.6 L (39.0-53.0) % RDW 15.9 H (11.5-15.5) % Plt Count 68 L (150-450) k/uL Neutrophils # (Manual) (1.3-7.7) k/uL Lymphocytes # (Manual) (1.0-4.8) k/uL Monocytes # (Manual) (0-1.0) k/uL Eosinophils # (Manual) (0-0.7) k/uL Basophils # (Manual) (0-0.2) k/uL Metamyelocytes # (Man) (0) k/uL Nucleated RBCs (0-0) /100 WBC ABG pH (7.35-7.45) ABG pO2 (83-108) mmHg ABG HCO3 (21-25) mmol/L ABG Total CO2 (19-24) mmol/L ABG O2 Saturation (94-97) % Sodium (137-145) mmol/L Carbon Dioxide (22-30) mmol/L BUN (9-20) mg/dL Glucose (74-99) mg/dL POC Glucose (mg/dL) 205 H (70-110) mg/dL Calcium (8.4-10.2) mg/dL Vancomycin Trough ug/mL Crossmatch See Detail 06/29/22 06/29/22 06/30/22 Range/Units 17:35 23:40 03:08 WBC (3.8-10.6) k/uL RBC (4.30-5.90) m/uL Hgb (13.0-17.5) gm/dL Hct (39.0-53.0) % RDW (11.5-15.5) % Plt Count (150-450) k/uL Neutrophils # (Manual) (1.3-7.7) k/uL Lymphocytes # (Manual) (1.0-4.8) k/uL Monocytes # (Manual) (0-1.0) k/uL Eosinophils # (Manual) (0-0.7) k/uL Basophils # (Manual) (0-0.2) k/uL Metamyelocytes # (Man) (0) k/uL Nucleated RBCs (0-0) /100 WBC ABG pH (7.35-7.45) ABG pO2 (83-108) mmHg ABG HCO3 (21-25) mmol/L ABG Total CO2 (19-24) mmol/L ABG O2 Saturation (94-97) % Sodium 131 L (137-145) mmol/L Carbon Dioxide 13 L (22-30) mmol/L BUN 26 H (9-20) mg/dL Glucose 125 H (74-99) mg/dL POC Glucose (mg/dL) 163 H 160 H (70-110) mg/dL Calcium 4.5 L* (8.4-10.2) mg/dL Vancomycin Trough ug/mL Crossmatch 06/30/22 06/30/22 06/30/22 Range/Units 03:08 03:08 05:38 WBC 26.0 H (3.8-10.6) k/uL RBC 2.89 L (4.30-5.90) m/uL Hgb 8.9 L D (13.0-17.5) gm/dL Hct 27.2 L (39.0-53.0) % RDW 17.3 H (11.5-15.5) % Plt Count 81 L (150-450) k/uL Neutrophils # (Manual) 17.10 H (1.3-7.7) k/uL Lymphocytes # (Manual) 5.20 H (1.0-4.8) k/uL Monocytes # (Manual) 1.82 H (0-1.0) k/uL Eosinophils # (Manual) 1.04 H (0-0.7) k/uL Basophils # (Manual) 0.26 H (0-0.2) k/uL Metamyelocytes # (Man) 0.78 H (0) k/uL Nucleated RBCs 36 H (0-0) /100 WBC ABG pH 7.11 L* (7.35-7.45) ABG pO2 73 L (83-108) mmHg ABG HCO3 12 L (21-25) mmol/L ABG Total CO2 13 L (19-24) mmol/L ABG O2 Saturation 93.4 L (94-97) % Sodium (137-145) mmol/L Carbon Dioxide (22-30) mmol/L BUN (9-20) mg/dL Glucose (74-99) mg/dL POC Glucose (mg/dL) (70-110) mg/dL Calcium (8.4-10.2) mg/dL Vancomycin Trough 44.0 H* ug/mL Crossmatch 06/30/22 Range/Units 09:25 WBC (3.8-10.6) k/uL RBC (4.30-5.90) m/uL Hgb (13.0-17.5) gm/dL Hct (39.0-53.0) % RDW (11.5-15.5) % Plt Count (150-450) k/uL Neutrophils # (Manual) (1.3-7.7) k/uL Lymphocytes # (Manual) (1.0-4.8) k/uL Monocytes # (Manual) (0-1.0) k/uL Eosinophils # (Manual) (0-0.7) k/uL Basophils # (Manual) (0-0.2) k/uL Metamyelocytes # (Man) (0) k/uL Nucleated RBCs (0-0) /100 WBC ABG pH 7.30 L (7.35-7.45) ABG pO2 61 L (83-108) mmHg ABG HCO3 19 L (21-25) mmol/L ABG Total CO2 (19-24) mmol/L ABG O2 Saturation 93.0 L (94-97) % Sodium (137-145) mmol/L Carbon Dioxide (22-30) mmol/L BUN (9-20) mg/dL Glucose (74-99) mg/dL POC Glucose (mg/dL) (70-110) mg/dL Calcium (8.4-10.2) mg/dL Vancomycin Trough ug/mL Crossmatch Microbiology - Last 24 Hours (Table) 06/27/22 21:40 Gram Stain - Final Sputum Sputum Culture - Final Rita albicans 06/26/22 11:55 Gram Stain - Final Pleural Fluid Body Fluid Culture - Final 06/24/22 19:36 Blood Culture - Preliminary Blood No Growth after 120 hours 06/24/22 19:55 Blood Culture - Preliminary Blood No Growth after 120 hours Assessment and Plan Assessment: Sepsis, septic shock, likely secondary to left lower lobe pneumonia and complicated pleural effusion, status post pigtail catheter placement, on June 26, and left chest tube placement, on June 28. Status post intubation, and mechanical ventilation, for respiratory failure, on 06/27/2022. Left lower lobe pneumonia with complicated parapneumonic effusion. Coronavirus infection. History of COPD. Severe hypotension, secondary to septic shock. Probable acute adrenal insufficiency with a cortisol level of 4. Gen. medical debility. Plan: Plan dated 06/29/2022. The patient's FiO2 is dropped to 25%. The patient will get Nimbex 10 mg IV push, and a Nimbex drip at 2 mcg/kg/m. The patient be started on tube feedings. We will do [id number] monitoring. We will get a stat cortisol level and TSH. The patient will get 1 unit of packed red blood cells. The patient will be started on hydrocortisone, 50 mg IV push, every 6 hours, after initial dose of 100 mg IV push. His overall prognosis remains poor. Labs, x-rays, and medications are reviewed. The patient's vasopressin can be increased to 0.04 units per minute, and norepinephrine can be increased to 1 mcg/kg/m. Additional orders will be given along the way. Plan dated 06/30/2022. The patient's respiratory status is reasonable. He did get some additional sodium bicarbonate ampules, for a metabolic acidosis. He remains on 8 bicarbonate drip. He is maximized on vasopressin, and norepinephrine. He is getting hydrocortisone for adrenal insufficiency. He's paralyzed, with Nimbex, with [id number] monitoring. We will increase his tube feedings to goal. Cardiothoracic surgery will sign off for now. No additional recommendations at this time. Overall prognosis is extremely poor. Labs, x-rays, and medications are reviewed. He remains on vancomycin and cefepime, and was being seen by infectious diseases. Time with Patient: Greater than 30
--- NOTE | 2022-06-30 12:28 | XR ---
EXAMINATION TYPE: XR chest 1V portable DATE OF EXAM: 06/30/2022 CLINICAL HISTORY: OG tube placement.. TECHNIQUE: Single AP portable semiupright view of the chest is obtained. COMPARISON: Chest x-ray from earlier today and older studies FINDINGS: Stable endotracheal tube. Stable left-sided subclavian central venous catheter. Stable lef t-sided lateral chest tube and left basilar pigtail pleural drainage catheter without visualized pneu mothorax. The orogastric tube now seen better projecting well below diaphragm including side port. Persistent bibasilar opacities and small to moderate-sized left greater than right pleural fluid jennifer ections. Cardiac silhouette size is stable and within normal limits with silhouetting of left heart b order redemonstrated. Osseous structures are intact. Entire right lung apex not included. IMPRESSION: Persistent small to moderate size left greater than right pleural effusions with associat ed bibasilar acute infiltrate and/or atelectasis and mild to moderate central edema all redemonstrate d. No significant change from earlier today.
[2022-06-30 13:06] LABS: Glucose,Whole Blood 220 mg/dL (70-110)
[2022-06-30 13:53] VITALS: BMI 20.9
--- NOTE | 2022-06-30 15:53 | P.PN ---
Subjective Progress Note Date: 06/30/22 Patient is a 61-year-old male with a known history of COPD, peripheral neuropathy nondiabetic, legally blind and history of carpal tunnel syndrome and currently everyday smoker presents to ER with complaints of cough generalized weakness and shortness of breath for the past 1 week.. Afebrile on admission. No complaints of chest pain. No nausea vomiting abdominal pain or diarrhea. Chest x-ray showed there is a left lower lobe pneumonia and left pleural effusion which is new compared to old exam. Repeat chest x-ray this morning showed small left pleural effusion with left lower lobe infiltrate. Correlate for pneumonia. EKG showed sinus tachycardia with frequent supraventricular complexes. Chest ultrasound showed complex loculated fluid collections left posterior lung. Patient was also hypotensive and requiring pressor support. Laboratory test showed WBC 11.1 hemoglobin 10.4 and platelets 142 INR 1.3 Sodium 130 potassium 4.1 chloride 103 bicarb is 16 BUN 21 and creatinine 0.84 Lactic acidosis with level 5.0 and calcium 7.6 and proBNP 5020 Coronavirus PCR detected. 06/26/2022 Patient in MICU. Patient fell of the bed and sustained left-sided elbow injuries. No fractures on x-rays noted. Awake patient remains pressor support and IV hydration antibiotics at home of vancomycin and cefepime. Hemoglobin dropped to 6.2 today. Undergoing transfusion PRBC. Currently on room air. Plan to get IR guided pigtail catheter placement. Laboratory showed WBC 12.2, hemoglobin 6.2 MCV 100.2 and platelets 140 Sodium 133 potassium 4.0 chloride 101 bicarb is 12 BUN 28 and creatinine 0.6 sodium 133 potassium 4.0 chloride 101 bicarb is 12 BUN 28 and creatinine 0.6. Procalcitonin level is 2.04 Pulmonary, ID and CT surgery is on board. 06/27/2022 Patient is in the MICU. Patient was agitated and pulling out lines yesterday and was requiring Precedex drip and also alcohol withdrawal protocol. Today morning he was almost unresponsive stimuli and was intubated as recommended pulmonary. Patient is on bicarb drip was briefly on norepinephrine. Patient remains on antibiotics in the form of vancomycin and cefepime. Afebrile. Patient is status post pigtail catheter on 06/26/2022. Laboratory data showed WBC 9.7 hemoglobin 9.0 and platelets 75 Sodium 130 potassium 3.4 chloride 109 bicarb is 15 BUN 29 creatinine 0.41 blood sugar 205 and magnesium 1.6 and albumin 1.4 06/28/2022 Patient remains in the MICU. Pulm Ventilator with assist control FiO2 30% and PEEP of 5 and tidal volume 450. Patient has been hypotensive and went into A. fib with RVR. Converted to sinus rhythm and off amiodarone drip. Patient is being current antibiotics and all vancomycin and cefepime. Pigtail catheter is in place and is draining serosanguineous fluid from the left pleural space. Blood culture have been negative. Pleural fluid cultures pending. Laboratory pressure WBC 9.7 hemoglobin 9.0 and platelets 75 Sodium 130 potassium 3.4 chloride 109 bicarb is 15 BUN 29 and creatinine 0.49 calcium 6.5 magnesium 1.6 and albumin 1.5 06/29/2022 Patient is in the MICU. Admitted to hospital due to left lobe pneumonia and pleural effusion acute COVID-19 infection. Remains on mechanical ventilator with assist control 16 and tidal volume 400 FiO2 30% and PEEP of 5. Patient is hypotensive and also requiring propofol and vasopressin and norepinephrine. Remains on antibiotics on hold vancomycin and cefepime. Status post pigtail catheter placement by radiology. Cultures have been negative so far. Chest x-ray today showed similar multifocal airspace opacities. Stable support lines and tubes. No appreciable pneumothorax. Laboratory pressure WBC 14.9 hemoglobin 6.2 and platelets 58. Patient is being transfused with 1 unit of PRBC. Sodium 129 potassium 3.7 chloride 107 bicarbonate 17 BUN 25 creatinine 0.71 calcium 4.8 and cortisol level is 4. TSH 0.849 06/30/22 Patient continues to be under the care of ICU. Currently on mechanical ventilation. Patient is left-sided chest tube and left-sided pigtail catheter. Currently on Levophed and vasopressin REVIEW OF SYSTEMS: Review of systems cannot be obtained as patient is currently intubated PHYSICAL EXAMINATION: GENERAL: Currently intubated and sedated HEENT: Pupils are round and equally reacting to light. CARDIOVASCULAR: S1 and S2 present. No murmurs, rubs, or gallops. PULMONARY: Coarse breath sounds bilaterally without wheeze ABDOMEN: Soft, nontender, nondistended, normoactive bowel sounds. No palpable organomegaly. MUSCULOSKELETAL: No joint swelling or deformity. EXTREMITIES: No cyanosis, clubbing, or pedal edema. NEUROLOGICAL: Intubated and sedated Assessment and plan Septic shock requiring pressor support .Secondary to left lower lobe pneumonia a complicated with pleural effusion status post pigtail catheter placement. Left lower lobe pneumonia with loculated pleural effusion possible parapneumonic COVID-19 infection with symptoms x1 week Atrial fibrillation with RVR. Currently sinus rhythm. off Amiodarone drip. Hypovolemic hyponatremia Lactic acidosis COPD Legally blind Currently everyday smoker DVT prophylaxis with Lovenox subcu Plan: Continue Mechanical ventilator management and propofol drip per pulmonary critical care recommendations. Continue antibiotics, currently on cefepime and vancomycin managed by infectious disease. GI and DVT prophylaxis. Norepinephrine and vasopressin drip management per pulmonary critical care management. D5W with sodium bicarbonate drip management per pulmonary critical care. Objective - Vital Signs Vital signs: Vital Signs Temp 97.5 F L 06/30/22 12:00 Pulse 110 H 06/30/22 15:00 Resp 16 06/30/22 15:00 BP 101/79 06/30/22 15:00 Pulse Ox 95 06/30/22 14:45 FiO2 25 06/30/22 14:55 Intake & Output 06/29/22 06/30/22 06/30/22 18:59 06:59 18:59 Intake Total 2520.216 2033.243 2136.003 Output Total 392 525 10 Balance 2128.216 8410.173 4413.003 Weight 65.5 kg 70 kg 70 kg Intake: IV 1350 1010 865 .9 KVO 90 Cefepime 2 gm In Sodium 100 100 100 Chloride 0.9% 100 ml @ 25 mls/hr IVPB Q8HR F[facility]IC[facility] Rx# :[id number] Dextrose 5% in Water 1, 900 900 675 000 ml @ 75 mls/hr IV . [id number] FELICIA with Sodium Bicarb (1 Meq/ml) 150 ml Rx#:[id number] Sodium Chloride 0.9% 1, 100 10 000 ml @ 125 mls/hr IV . Q8H FELIC[facility] Rx#:[id number] Vancomycin 1,000 mg In 250 Sodium Chloride 0.9% 250 ml @ 125 mls/hr IVPB Q12H FELICIA Rx#:[id number] Intake, IV Titration 860.216 240.285 5674.003 Amount Cisatracurium 200 mg In 45.588 Sodium Chloride 0.9% 180 ml @ 2 MCG/KG/MIN 7.86 mls/hr IV .Q24H FELICIA Rx#: [id number] Norepinephrine 8 mg In 805.830 712.243 961.447 Sodium Chloride 0.9% 250 ml @ 0.03 MCG/KG/MIN 3. 518 mls/hr IV .Q24H FELICIA Rx#:[id number] Vasopressin 20 unit In 8.798 51 89.556 Sodium Chloride 0.9% 50 ml @ 0.03 UNITS/MIN 4.59 mls/hr IV .[id number] FELIC[facility] Rx# :[id number] propofoL 1,000 mg In 100 Empty Bag 1 bag @ 15 MCG/ KG/MIN 5.283 mls/hr IV . [id number] FELICIA Rx#:[id number] Tube Feeding 70 160 Blood Product 310 Rc As-1 Unit 310 [id number] Other 90 60 Output: Chest Tube Drainage 360 310 Left Upper Anterior Chest 80 100 left posterior chest 280 210 Drainage 210 Left Posterior Chest 210 Urine 32 5 10 Other: Voiding Method Indwelling Catheter Indwelling Catheter Indwelling Catheter ABP, PAP, CO, CI - Last Documented Arterial Blood Pressure 101/72 - Labs CBC & Chem 7: 06/30/22 03:08 06/30/22 03:08 Labs: Abnormal Lab Results - Last 24 Hours (Table) 06/29/22 06/29/22 06/30/22 Range/Units 17:35 23:40 03:08 WBC (3.8-10.6) k/uL RBC (4.30-5.90) m/uL Hgb (13.0-17.5) gm/dL Hct (39.0-53.0) % RDW (11.5-15.5) % Plt Count (150-450) k/uL Neutrophils # (Manual) (1.3-7.7) k/uL Lymphocytes # (Manual) (1.0-4.8) k/uL Monocytes # (Manual) (0-1.0) k/uL Eosinophils # (Manual) (0-0.7) k/uL Basophils # (Manual) (0-0.2) k/uL Metamyelocytes # (Man) (0) k/uL Nucleated RBCs (0-0) /100 WBC ABG pH (7.35-7.45) ABG pO2 (83-108) mmHg ABG HCO3 (21-25) mmol/L ABG Total CO2 (19-24) mmol/L ABG O2 Saturation (94-97) % Sodium 131 L (137-145) mmol/L Carbon Dioxide 13 L (22-30) mmol/L BUN 26 H (9-20) mg/dL Glucose 125 H (74-99) mg/dL POC Glucose (mg/dL) 163 H 160 H (70-110) mg/dL Calcium 4.5 L* (8.4-10.2) mg/dL Vancomycin Trough ug/mL 06/30/22 06/30/22 06/30/22 Range/Units 03:08 03:08 05:38 WBC 26.0 H (3.8-10.6) k/uL RBC 2.89 L (4.30-5.90) m/uL Hgb 8.9 L D (13.0-17.5) gm/dL Hct 27.2 L (39.0-53.0) % RDW 17.3 H (11.5-15.5) % Plt Count 81 L (150-450) k/uL Neutrophils # (Manual) 17.10 H (1.3-7.7) k/uL Lymphocytes # (Manual) 5.20 H (1.0-4.8) k/uL Monocytes # (Manual) 1.82 H (0-1.0) k/uL Eosinophils # (Manual) 1.04 H (0-0.7) k/uL Basophils # (Manual) 0.26 H (0-0.2) k/uL Metamyelocytes # (Man) 0.78 H (0) k/uL Nucleated RBCs 36 H (0-0) /100 WBC ABG pH 7.11 L* (7.35-7.45) ABG pO2 73 L (83-108) mmHg ABG HCO3 12 L (21-25) mmol/L ABG Total CO2 13 L (19-24) mmol/L ABG O2 Saturation 93.4 L (94-97) % Sodium (137-145) mmol/L Carbon Dioxide (22-30) mmol/L BUN (9-20) mg/dL Glucose (74-99) mg/dL POC Glucose (mg/dL) (70-110) mg/dL Calcium (8.4-10.2) mg/dL Vancomycin Trough 44.0 H* ug/mL 06/30/22 06/30/22 Range/Units 09:25 13:03 WBC (3.8-10.6) k/uL RBC (4.30-5.90) m/uL Hgb (13.0-17.5) gm/dL Hct (39.0-53.0) % RDW (11.5-15.5) % Plt Count (150-450) k/uL Neutrophils # (Manual) (1.3-7.7) k/uL Lymphocytes # (Manual) (1.0-4.8) k/uL Monocytes # (Manual) (0-1.0) k/uL Eosinophils # (Manual) (0-0.7) k/uL Basophils # (Manual) (0-0.2) k/uL Metamyelocytes # (Man) (0) k/uL Nucleated RBCs (0-0) /100 WBC ABG pH 7.30 L (7.35-7.45) ABG pO2 61 L (83-108) mmHg ABG HCO3 19 L (21-25) mmol/L ABG Total CO2 (19-24) mmol/L ABG O2 Saturation 93.0 L (94-97) % Sodium (137-145) mmol/L Carbon Dioxide (22-30) mmol/L BUN (9-20) mg/dL Glucose (74-99) mg/dL POC Glucose (mg/dL) 220 H (70-110) mg/dL Calcium (8.4-10.2) mg/dL Vancomycin Trough ug/mL Microbiology - Last 24 Hours (Table) 06/26/22 11:55 Anaerobic Culture - Final Pleural Fluid 06/27/22 21:40 Gram Stain - Final Sputum Sputum Culture - Final Rita albicans 06/26/22 11:55 Gram Stain - Final Pleural Fluid Body Fluid Culture - Final 06/24/22 19:36 Blood Culture - Preliminary Blood No Growth after 120 hours 06/24/22 19:55 Blood Culture - Preliminary Blood No Growth after 120 hours
[2022-06-30] MEDS ORDERED: VANCOMYCIN 1,000 MG in SODIUM CHLORIDE 0.9% 250 ML IVPB SCH (18:00)
[2022-06-30 18:10] LABS: Glucose,Whole Blood 193 mg/dL (70-110)
[2022-06-30 18:11] LABS: ABG Base Excess -10.4 mmol/L; ABG HCO3 18 mmol/L (21-25); ABG Oxygen Saturation 88.9 % (94-97); ABG PCO2 44 mmHg (35-45); ABG PH 7.21 (7.35-7.45); ABG PO2 60 mmHg (83-108); ABG TCO2 19 mmol/L (19-24); Allen Test Performed? Yes
[2022-06-30] MEDS: THIAMINE 100 MG TAB PO SCH (18:17)
[2022-06-30] MEDS: CISATRACURIUM 200 MG in SODIUM CHLORIDE 0.9% 180 ML IV SCH (18:18)
[2022-06-30] MEDS ORDERED: LACTATED RINGERS 1,000 ML IV ONE (18:30)
[2022-06-30] MEDS ORDERED: VANCOMYCIN IV PER PHARMACY 1 EACH MISC MISCELLANE PRN (19:34)
[2022-06-30 21:12] VITALS: BP 105/77; PULSE 99; TEMP 96
[2022-06-30 21:39] LABS: ABG Base Excess -8.1 mmol/L; ABG HCO3 20 mmol/L (21-25); ABG Oxygen Saturation 64.1 % (94-97); ABG PCO2 52 mmHg (35-45); ABG TCO2 22 mmol/L (19-24); Allen Test Performed? Yes
[2022-06-30 21:43] LABS: ABG PO2 37 mmHg (83-108)
[2022-06-30] MEDS: DEXTROSE 5%-0.45% NACL 1,000 ML IV SCH (22:34)
[2022-06-30] MEDS ORDERED: SCOPOLAMINE 1 MG/72 HR PATCH TRANSDERM SCH (23:00)
[2022-06-30] MEDS ORDERED: MORPHINE SULFATE (100 MG/2 ML) 100 MG in SODIUM CHLORIDE 0.9% 100 ML IV SCH (23:00)
[2022-06-30] MEDS: MORPHINE SULFATE 4 MG/ML SYRINGE IV PRN ×2 (23:10→23:32)
[2022-07-01 03:56] VITALS: RESP 0
--- NOTE | 2022-07-02 14:18 | P.DS ---
Providers Date of admission: 06/24/22 20:34 Expected date of discharge: 07/02/22 Attending physician: Gray Henao Consults: 06/24/22 20:31 Consult Physician Routine Consulting Provider: Darrian Otero Consult Reason/Comments: pleural effusion, covid, pneumonia Do you want consulting provider notified?: Yes, Notify in am 06/25/22 00:23 Consult Physician Stat Consulting Provider: Darrian Otero Consult Reason/Comments: septic shock, pneumonia, covid Do you want consulting provider notified?: Already Contacted 06/25/22 10:18 Consult Physician Routine Consulting Provider: Gilda Lennon Consult Reason/Comments: loculated fluid left lung Do you want consulting provider notified?: Yes Consult Physician Routine Consulting Provider: Yonathan Shipman Consult Reason/Comments: empyema? Do you want consulting provider notified?: Yes Primary care physician: Daryl Nagel - Discharge Diagnosis(es) (1) Septic shock Status: Acute Hospital Course: Discharge diagnoses; Septic shock requiring pressor support .Secondary to left lower lobe pneumonia a complicated with pleural effusion status post pigtail catheter placement. Left lower lobe pneumonia with loculated pleural effusion possible parapneumonic COVID-19 infection with symptoms x1 week Atrial fibrillation with RVR. Currently sinus rhythm. off Amiodarone drip. Hypovolemic hyponatremia Lactic acidosis COPD Legally blind Hospital course; Patient is a 61-year-old male with a known history of COPD, peripheral neuropathy nondiabetic, legally blind and history of carpal tunnel syndrome and currently everyday smoker presents to ER with complaints of cough generalized weakness and shortness of breath for the past 1 week.. Afebrile on admission. No complaints of chest pain. No nausea vomiting abdominal pain or diarrhea. Chest x-ray showed there is a left lower lobe pneumonia and left pleural effusion which is new compared to old exam. Repeat chest x-ray this morning showed small left pleural effusion with left lower lobe infiltrate. Correlate for pneumonia. EKG showed sinus tachycardia with frequent supraventricular complexes. Chest ultrasound showed complex loculated fluid collections left posterior lung. Patient was also hypotensive and requiring pressor support. Laboratory test showed WBC 11.1 hemoglobin 10.4 and platelets 142 INR 1.3 Sodium 130 potassium 4.1 chloride 103 bicarb is 16 BUN 21 and creatinine 0.84 Lactic acidosis with level 5.0 and calcium 7.6 and proBNP 5020 Coronavirus PCR detected. 06/26/2022 Patient in MICU. Patient fell of the bed and sustained left-sided elbow injuries. No fractures on x-rays noted. Awake patient remains pressor support and IV hydration antibiotics at home of vancomycin and cefepime. Hemoglobin dropped to 6.2 today. Undergoing transfusion PRBC. Currently on room air. Plan to get IR guided pigtail catheter placement. Laboratory showed WBC 12.2, hemoglobin 6.2 MCV 100.2 and platelets 140 Sodium 133 potassium 4.0 chloride 101 bicarb is 12 BUN 28 and creatinine 0.6 sodium 133 potassium 4.0 chloride 101 bicarb is 12 BUN 28 and creatinine 0.6. Procalcitonin level is 2.04 Pulmonary, ID and CT surgery is on board. 06/27/2022 Patient is in the MICU. Patient was agitated and pulling out lines yesterday and was requiring Precedex drip and also alcohol withdrawal protocol. Today morning he was almost unresponsive stimuli and was intubated as recommended pulmonary. Patient is on bicarb drip was briefly on norepinephrine. Patient remains on antibiotics in the form of vancomycin and cefepime. Afebrile. Patient is status post pigtail catheter on 06/26/2022. Laboratory data showed WBC 9.7 hemoglobin 9.0 and platelets 75 Sodium 130 potassium 3.4 chloride 109 bicarb is 15 BUN 29 creatinine 0.41 blood sugar 205 and magnesium 1.6 and albumin 1.4 06/28/2022 Patient remains in the MICU. Pulm Ventilator with assist control FiO2 30% and PEEP of 5 and tidal volume 450. Patient has been hypotensive and went into A. fib with RVR. Converted to sinus rhythm and off amiodarone drip. Patient is being current antibiotics and all vancomycin and cefepime. Pigtail catheter is in place and is draining serosanguineous fluid from the left pleural space. Blood culture have been negative. Pleural fluid cultures pending. Laboratory pressure WBC 9.7 hemoglobin 9.0 and platelets 75 Sodium 130 potassium 3.4 chloride 109 bicarb is 15 BUN 29 and creatinine 0.49 calcium 6.5 magnesium 1.6 and albumin 1.5 06/29/2022 Patient is in the MICU. Admitted to hospital due to left lobe pneumonia and pleural effusion acute COVID-19 infection. Remains on mechanical ventilator with assist control 16 and tidal volume 400 FiO2 30% and PEEP of 5. Patient is hypotensive and also requiring propofol and vasopressin and norepinephrine. Remains on antibiotics on hold vancomycin and cefepime. Status post pigtail catheter placement by radiology. Cultures have been negative so far. Chest x-ray today showed similar multifocal airspace opacities. Stable support lines and tubes. No appreciable pneumothorax. Laboratory pressure WBC 14.9 hemoglobin 6.2 and platelets 58. Patient is being transfused with 1 unit of PRBC. Sodium 129 potassium 3.7 chloride 107 bicarbonate 17 BUN 25 creatinine 0.71 calcium 4.8 and cortisol level is 4. TSH 0.849 06/30/22 Patient continues to be under the care of ICU. Currently on mechanical ventilation. Patient is left-sided chest tube and left-sided pigtail catheter. Currently on Levophed and vasopressin CODE STATUS was discussed by ICU team with family, CODE STATUS was changed to DO NOT RESUSCITATE comfort meASURES. Patient was extubated and was pronounced later on 07/01/22 at 00:08 a.m. Patient Condition at Discharge: Undetermined Plan - Discharge Summary New Discharge Prescriptions: No Action Albuterol Sulfate [Albuterol Sulfate Hfa] 2 puff PO RT-Q6H PRN PRN Reason: Shortness Of Breath oxyCODONE-APAP 10-325MG [Percocet 10-325 mg] 1 tab PO TID PRN PRN Reason: Pain Discharge Medication List Albuterol Sulfate [Albuterol Sulfate Hfa] 2 puff PO RT-Q6H PRN 06/24/22 [History] oxyCODONE-APAP 10-325MG [Percocet 10-325 mg] 1 tab PO TID PRN 06/24/22 [History] Follow up Appointment(s)/Referral(s): Daryl Nagel DO [Primary Care Provider] - 1-2 days Discharge Disposition: - Preliminary Cause of Preliminary Cause of : Septic shock
== END 2022-07-01 03:45 | disposition expired | DRG 871 ==
LOC: EC 16:00 → 3SCARD 20:34 → 2SICU 23:43
PROVIDERS: ADMIT Hospitalist; ATTEND Hospitalist
PROC: 06HY33Z Insertion of Infusion Device into Lower Vein, Percutaneous Approach (ICD-10-PCS; principal; 2022-06-24)
PROC: 3E043XZ Introduction of Vasopressor into Central Vein, Percutaneous Approach (ICD-10-PCS; 2022-06-24)
PROC: 02HV33Z Insertion of Infusion Device into Superior Vena Cava, Percutaneous Approach (ICD-10-PCS; 2022-06-26)
PROC: 0W9B30Z Drainage of Left Pleural Cavity with Drainage Device, Percutaneous Approach (ICD-10-PCS; 2022-06-26)
PROC: 05H633Z Insertion of Infusion Device into Left Subclavian Vein, Percutaneous Approach (ICD-10-PCS; 2022-06-26)
PROC: 30233N1 Transfusion of Nonautologous Red Blood Cells into Peripheral Vein, Percutaneous Approach (ICD-10-PCS; 2022-06-26)
PROC: 0D9670Z Drainage of Stomach with Drainage Device, Via Natural or Artificial Opening (ICD-10-PCS; 2022-06-27)
PROC: 5A1945Z Respiratory Ventilation, 24-96 Consecutive Hours (ICD-10-PCS; 2022-06-27)
PROC: 0BH18EZ Insertion of Endotracheal Airway into Trachea, Via Natural or Artificial Opening Endoscopic (ICD-10-PCS; 2022-06-27)
PROC: 0W9B00Z Drainage of Left Pleural Cavity with Drainage Device, Open Approach (ICD-10-PCS; 2022-06-28)
PROC: 3E0G76Z Introduction of Nutritional Substance into Upper GI, Via Natural or Artificial Opening (ICD-10-PCS; 2022-06-30)
DX: A41.89 Other specified sepsis (principal); J12.82 Pneumonia due to coronavirus disease 2019; J96.01 Acute respiratory failure with hypoxia; J86.9 Pyothorax without fistula; R65.21 Severe sepsis with septic shock; U07.1 COVID-19; J18.0 Bronchopneumonia, unspecified organism; J91.8 Pleural effusion in other conditions classified elsewhere; J44.0 Chronic obstructive pulmonary disease with (acute) lower respiratory infection; E87.4 Mixed disorder of acid-base balance; E87.1 Hypo-osmolality and hyponatremia; J93.82 Other air leak; E27.40 Unspecified adrenocortical insufficiency; E44.0 Moderate protein-calorie malnutrition; G93.89 Other specified disorders of brain; D64.9 Anemia, unspecified; R54 Age-related physical debility; Z66 Do not resuscitate; Z51.5 Encounter for palliative care; H54.8 Legal blindness, as defined in USA; E86.0 Dehydration; Z28.310 Unvaccinated for COVID-19; F17.210 Nicotine dependence, cigarettes, uncomplicated; I49.1 Atrial premature depolarization; I48.0 Paroxysmal atrial fibrillation; G62.9 Polyneuropathy, unspecified; I49.3 Ventricular premature depolarization; Z53.20 Procedure and treatment not carried out because of patient's decision for unspecified reasons; E86.1 Hypovolemia; W06.XXXA Fall from bed, initial encounter; Y92.230 Patient room in hospital as the place of occurrence of the external cause; S59.902A Unspecified injury of left elbow, initial encounter; F10.90 Alcohol use, unspecified, uncomplicated; W18.30XA Fall on same level, unspecified, initial encounter; Y92.009 Unspecified place in unspecified non-institutional (private) residence as the place of occurrence of the external cause; Z79.899 Other long term (current) drug therapy; Z68.20 Body mass index [BMI] 20.0-20.9, adult
CPT/HCPCS: 32551; 36415; 36573; 36600; 71045; 71046; 71250; 73501; 76604; 76942; 80048; 80053; 80202; 81001; 82330; 82533; 82805; 82945; 83036; 83605; 83615; 83735; 83880; 84145; 84155; 84157; 84443; 84484; 85025; 85027; 85379; 85610; 85730; 86850; 86900; 86901; 86920; 87040; 87070; 87075; 87205; 87502; 87635; 88305; 89050; 93005; 94002; 94003; 94640; 96365; 96366; 96367; 96372; 96375; 99285